=== PATIENT | female | born 1960 | race Caucasian/White ===

== ENCOUNTER 2016-06-20 13:28 | Inpatient (IN) | payer OTHER ==
[~2016-06-20] VITALS: Ht 170.2 cm; Wt 57.3 kg
--- NOTE | 2016-06-20 13:31 | NUR ---
RECEIVED 55 YO FEMALE BIBA FROM HOME WITH REPORT THAT PT WOKE UP ABOUT 9:30 TO 10 AM TODAY WITH RIGHT ARM AND LEG WEAKNESS, RIGHT FACIAL DROOP, SOME EXPRESSIVE APHASIA. PT COMES IN TO ED A+O X 2. RIGHT SIDED WEAKNESS NOTED. DR CLOUD IN TO EVALUATE PT UPON ARRIVAL TO ED.
--- NOTE | 2016-06-20 13:32 | ED NEURO DEFICIT/STROKE ---
History of Present Illness General Chief Complaint: Neuro Symptoms/ Deficit Stated Complaint: STROKE ALERT Source: patient, EMS Exam Limitations: unable to give history, clinical condition Vital Signs & Intake/Output Vital Signs & Intake/Output Vital Signs Date Time Temp Pulse Resp B/P Pulse O2 O2 Flow FiO2 Ox Delivery Rate 06/22 0849 94 Nasal 3.0L Cannula 06/22 0800 97.6 77 18 110/60 93 Nasal 3.0L Cannula 06/22 0800 93 Nasal 3.0L Cannula 06/22 0400 93 Nasal 3.0L Cannula 06/22 0000 97.3 92 20 124/60 92 Nasal 3.0L Cannula 06/22 0000 92 Nasal 3.0L Cannula 06/21 2138 93 Nasal 3.0L Cannula 06/21 2000 93 Nasal 5.0L Cannula 06/21 1600 95 Nasal 5.0L Cannula 06/21 1600 100.0 100 20 140/78 95 Nasal 5.0L Cannula 06/21 1200 91 Nasal 5.0L Cannula ED Intake and Output 06/22 0000 06/21 1200 Intake Total 1540 408 Output Total 605 1050 Balance 935 -642 Intake, IV 1450 408 Intake, Oral 0 Intake, Other 60 Intake, Tube 30 Irrigant Number 0 Bowel Movements Output, 200 Emesis Output, Urine 605 850 Allergies Coded Allergies: azithromycin (TREMORS 06/20/16) erythromycin base (TREMORS 06/20/16) Reconcile Medications Buprenorphine HCl/Naloxone HCl (Suboxone 8 MG-2 MG Sl Film) 8 MG-2 MG FILM 1 STR SL BID MENTAL HEALTH (Reported) Cholecalciferol (Vitamin D3) (Vitamin D) 2,000 UNIT CAPSULE 1 CAP PO DAILY SUPPLEMENT (Reported) Cyclosporine (Restasis) 0.05 % DROPERETTE 1 GTT OPH BID BOTH EYES (Reported) Fluoxetine HCl 20 MG CAPSULE 1 CAP PO DAILY MENTAL HEALTH (Reported) Olanzapine 5 MG TABLET 1 TAB PO QPM MENTAL HEALTH (Reported) Triage Nurses Notes Reviewed? yes Onset: Abrupt Duration: WOKE UP AT 9:30 AM WITH SAME SYMPTOMS, LAST NORMAL LAST NIGHT Timing: single episode today Severity: severe New Weakness: RUE, right facial Altered Sensations: RUE Baseline: alert, oriented x 3, walks w/o assistance Associated Symptoms: slurred speech, trouble walking HPI: 55 year old female with history of HTN and anxiety who presents via EMS from home for chief complaint of right facial droop, slurred speech and right-sided weakness that she noticed while waking up this morning. Last was normal yesterday night. According to the fiance who arrived in the ER she was really lethargic last few days and was sleeping a lot. This morning he noticed that she was having difficulty walking and slurred speech. Patient refused to come to the hospital and thought she would take a nap after lunch and see if she was better. Then the daughter called EMS and brought her here. Denies any headache. Speech is moderately unintelligible. Past History Travel History Traveled to [place] past 21 day No Medical History Any Pertinent Medical History? see below for history Psychiatric: anxiety Surgical History Surgical History: unobtainable Psychosocial History Daily Tobacco Use Amount/Type: => 5 Cigarettes daily Family History Hx Contributory? No Review of Systems Review of Systems Constitutional: Reports: see HPI (PER FAMILY). EENTM: Reports: no symptoms. Respiratory: Denies: cough. Cardiovascular: Reports: no symptoms. GI: Denies: diarrhea, vomiting. Genitourinary: Reports: no symptoms. Musculoskeletal: Reports: no symptoms. Skin: Reports: no symptoms. Neurological/Psychological: Reports: see HPI (FACIAL DROOP), ataxia, confusion, weakness. Hematologic/Endocrine: Denies: bruising, bleeding. Immunologic/Allergic: Reports: no symptoms. All Other Systems: Reviewed and Negative Physical Exam Physical Exam General Appearance: awake, lethargic, mild distress, thin Head: atraumatic, normal appearance Eyes: Bilateral: PERRL, EOMI, other (SMALL PUPILS). Ears, Nose, Throat: DRY MUCUS MEMBRANES Neck: normal inspection, supple, full range of motion Respiratory: normal breath sounds, chest non-tender, no respiratory distress Cardiovascular: regular rate/rhythm Peripheral Pulses: 2+ radial (R), 2+ radial (L) Gastrointestinal: normal bowel sounds, soft, non-tender Extremities: RIGHT ARM 1/5 STRENGTH RIGHT LEG 2/5 STRENGTH Psychiatric: lethargic Cranial Nerves: abnormal speech, facial asymmetry, facial droop Coordination/Gait: ABN nose to finger (R) Motor/Sensory: motor deficit, weak motor strength RUE, weak motor strength RLE Skin: intact, normal color, warm/dry Core Measures CVA/TIA Diagnosis: Yes NIH Stroke Scale: Total 10 Severe Sepsis Present: No Septic Shock Present: No Bedside Dysphagia Screen Bedside Swallow Eval Done: Yes Result of Evaluation: Fail Progress Differential Diagnosis: intracranial mass/tumor, seizure disorder, stroke Plan of Care: Orders Procedure Date/time Status Albright, Insertion/Removal/Asses 06/22 0718 Active XRY-PORTABLE CHEST XRAY 06/22 0600 Active ICU LAB BUNDLE 06/22 0500 Complete CBC WITHOUT DIFFERENTIAL 06/22 0500 Complete SWALLOW EVALUATION 06/22 UNK Active Therapeutic Activities 06/22 UNK Complete Therapeutic Exercise 06/22 UNK Complete Neuromuscular Re-ed 06/22 UNK Complete Change service to 06/21 1419 Active LOWER RESPIRATORY CULTURE 06/21 1222 Active THYROID STIMULATING HORMONE 06/21 0420 Complete GLYCOSYLATED HGB 06/21 0420 Active VITAMIN B12 06/21 0420 Complete Evaluate Swallowing 06/21 UNK Complete AEROSOL CHG 06/21 UNK Complete OXYGEN 06/21 UNK Complete OXYGEN DAILY CHARGE 06/21 UNK Complete THERAPIST ORDERS 06/21 UNK Complete OXYGEN SETUP (GEN) 06/21 UNK Complete Therapeutic Activities 06/21 UNK Complete PT Eval 06/21 UNK Complete Neuromuscular Re-ed 06/21 UNK Complete Lab Add-on Test 06/21 UNK Active FingerStick- Glucose 06/21 UNK Active OXYGEN SETUP CHG 06/20 UNK Complete AEROSOL CHG 06/20 UNK Complete OXYGEN 06/20 UNK Complete OXYGEN TRANSPORT 06/20 UNK Complete Current Medications Sig/Eduardo Start time Last Medication Dose Stop Time Status Admin Acetaminophen 650 MG Q6 PRN 06/20 1730 AC (Tylenol) Laboratory Tests 06/22/ 0400: Anion Gap 8, Estimated GFR > 60, Glucose 92, Calcium 8.6, Phosphorus 5.0 H, Magnesium 1.7, Total Bilirubin 0.9, AST 32, ALT 40, Albumin 3.3 L, CBC w Diff NO MAN DIFF REQ, RBC 3.92 L, MCV 93.5, MCH 32.4 H, RDW 13.4, MPV 9.0, Gran % 62.8, Lymphocytes % 29.4, Monocytes % 7.2, Eosinophils % 0.2, Basophils % 0.4, Absolute Granulocytes 8.1 H, Absolute Lymphocytes 3.8 H, Absolute Monocytes 0.9 H, Absolute Eosinophils 0, Absolute Basophils 0.1, PUBS MCHC 34.7 Microbiology 06/21 1222 LOWER RESP: Respiratory Culture - COLB 06/21 1222 LOWER RESP: Gram Stain - COLB Diagnostic Imaging: Viewed by Me: CT Scan. Discussed w/RAD: CT Scan. Radiology Impression: EXAM TYPE: CAT - CT HEAD WO IV CONTRAST EXAMINATION: CT HEAD WITHOUT CONTRAST CLINICAL INFORMATION: Right-sided weakness COMPARISON: None. TECHNIQUE: Contiguous axial imaging was performed from the skull base to vertex without intravenous administration of contrast. DLP: 600 mGy-cm. FINDINGS : There is no evidence of acute intracranial hemorrhage or territorial infarction. No abnormal mass effect or midline shift is seen. Schultz to white matter differentiation is well preserved. No extra-axial fluid collections are identified. The ventricles are normal in size. There is no abnormal attenuation within the brain parenchyma. The osseous structures and soft tissues are normal. The mastoid air cells and visualized portions of the paranasal sinuses are well aerated. IMPRESSION: No acute intracranial process seen. Initial ED EKG: NSR Rhythm Strip: normal sinus rhythm Departure Departure Time of Disposition: 1523 Disposition: STILL A PATIENT Condition: Stable Clinical Impression Primary Impression: CVA (cerebral vascular accident) Referred to [facility] as new patient No Departure Forms: Customer Survey General Discharge Information Admission Note Spoke With: TONA BUTT MD Documentation of Exam: Documentation of any treatments & extenuating circumstances including Concerns Regarding Discharge (functional status, medication knowledge or non-compliance, living conditions, etc.) that warrant an admission rather than observation: [ TELE MONITOR, MRI HEAD, NEURO CONSULTATION, ASPIRIN, CAROTID ULTRASOUND]
--- NOTE | 2016-06-20 13:33 | NUR ---
PT TO [facility] WITH MEHRAN GOMEZ AND [employer] TECH VIA STRETCHER, ON MONITOR
--- NOTE | 2016-06-20 13:39 | NUR ---
PT BACK FROM [facility].
--- NOTE | 2016-06-20 13:55 | NUR ---
STRAIGHT CATHED PT FOR URINE SAMPLE. APPROX 300ML OBTAINED
--- NOTE | 2016-06-20 13:57 | CT SCAN REPORT ---
EXAMINATION: CT HEAD WITHOUT CONTRAST CLINICAL INFORMATION: Right-sided weakness COMPARISON: None. TECHNIQUE: Contiguous axial imaging was performed from the skull base to vertex without intravenous administration of contrast. DLP: 600 mGy-cm. FINDINGS: There is no evidence of acute intracranial hemorrhage or territorial infarction. No abnormal mass effect or midline shift is seen. Schultz to white matter differentiation is well preserved. No extra-axial fluid collections are identified. The ventricles are normal in size. There is no abnormal attenuation within the brain parenchyma. The osseous structures and soft tissues are normal. The mastoid air cells and visualized portions of the paranasal sinuses are well aerated. IMPRESSION: No acute intracranial process seen.
[2016-06-20 14:06] LABS: ABSOLUTE BASOPHIL COUNT 0 /CUMM (0.0-0.2); ABSOLUTE EOSINOPHIL COUNT 0.1 /CUMM (0.0-0.7); ABSOLUTE GRANULOCYTE CT 2.8 /CUMM (1.4-6.5); ABSOLUTE LYMPH COUNT 2.4 /CUMM (1.2-3.4); ABSOLUTE MONOCYTE COUNT 0.4 /CUMM (0.10-0.60); BASOPHIL % 0.6 % (0.0-2.0); EOSINOPHIL % 1.8 % (0-5); GRANULOCYTE % 48.7 % (42.2-75.2); HEMATOCRIT 41.4 % (37-47); MEAN CORPUSCULAR HGB 31.9 PG (27.0-31.0); MEAN CORPUSCULAR VOLUME 93.8 FL (81.0-99.0); MEAN PLATELET VOLUME 9.2 FL (7.4-10.4); PLATELET COUNT 183 /CUMM (130-400); RBC DISTRIBUTION WIDTH 13.4 % (11.5-14.5); RED BLOOD CELL CT 4.41 /CUMM (4.20-5.40); WHITE BLOOD CELL COUNT 5.7 /CUMM (4.8-10.8)
--- NOTE | 2016-06-20 14:08 | NUR ---
URINE TRIO SENT TO LAB
--- NOTE | 2016-06-20 14:09 | NUR ---
PER SHIVA IN LAB, BLUE, SST,PINK NEED TO BE REDRAWN,
--- NOTE | 2016-06-20 14:25 | NUR ---
PT GIVEN SC DIRECTED
--- NOTE | 2016-06-20 14:25 | NUR ---
PT FAILED JUDD CORDERO
--- NOTE | 2016-06-20 14:35 | NUR ---
DR. CLOUD IN ROOM TALKING WITH FAMILY AND PT
[2016-06-20 14:51] LABS: PT 12.8 SEC (9.4-12.5); PTT 33 SEC (25-37)
[2016-06-20] MEDS ORDERED: FLUOXETINE HCL20 M2 PO (15:49)
--- NOTE | 2016-06-20 15:49 | History & Physical ---
JOVI LOVE 06/20/16 1545: General Information and HPI MD Statement: I have seen and personally examined JIMMIE SEGURA and documented this H&P. The patient is a 55 year old F who presented with a patient stated chief complaint of [right sided weakness]. Source of Information: patient, family Exam Limitations: unable to give history History of Present Illness: 55-year-old woman with past medical history of substance abuse(IV injection), clean for 2 years on Suboxone, anxiety/depression/bipolar on olanzapine and fluoxetine, daily smoker of 2 packs a day was BIBA to the hospital for chief complaint of right-sided weakness. Patient is unable to talk and a history was obtained from patient's fianc and daughter. In the morning around 9:30 AM patient reporting feeling funny and gradually she had weakness of her right arm and subsequently with a soft early right leg with unsteady gaits. Patient developed slurred speech gradually an ambulance was called around 1 PM. Patient took her Suboxone in the morning and also ate her cereal around 12 PM. According the family patient denied any chest pain, dizziness, shortness of breath, blurry vision, tinnitus, nausea, vomiting, headache, chills, fevers. Initially in the ED patient was able to express individual ports were Jamel and TV, however she failed a swallow evaluation and when I saw the patient she was unable to talk. Vital signs on admission blood pressure 155/81, respiratory rate 20, O2 saturation 92, pulse rate 75, temperature 96.[address] did not show any signs of acute pathology (which is unreliable) Since patient was drowsy ABG was done which showed PCO2 of 50, PO2 of 63, normal pH, HCO3 29, O2 saturation 89% on room air Allergies/Medications Allergies: Coded Allergies: azithromycin (TREMORS 06/20/16) erythromycin base (TREMORS 06/20/16) Home Med list Buprenorphine HCl/Naloxone HCl (Suboxone 8 MG-2 MG Sl Film) 8 MG-2 MG FILM 1 STR SL BID MENTAL HEALTH (Reported) Cholecalciferol (Vitamin D3) (Vitamin D) 2,000 UNIT CAPSULE 1 CAP PO DAILY SUPPLEMENT (Reported) Cyclosporine (Restasis) 0.05 % DROPERETTE 1 GTT OPH BID BOTH EYES (Reported) Fluoxetine HCl 20 MG CAPSULE 1 CAP PO DAILY MENTAL HEALTH (Reported) Olanzapine 5 MG TABLET 1 TAB PO QPM MENTAL HEALTH (Reported) Past History Travel History Traveled to [place] past 21 day No Medical History Psychiatric: anxiety, bipolar disease, depression, opioid dependence Surgical History Surgical History: non-contributory Past Family/Social History Family History Relations & Conditions if any Relation not specified for: *No pertinent family history Psychosocial History Smoking Status: Current Everyday Smoker ETOH Use: denies use Illicit Drug Use: clean for 2 years Review of Systems Review of Systems Constitutional: Reports: see HPI. Exam & Diagnostic Data Last 24 Hrs of Vital Signs/I&O Vital Signs Date Time Temp Pulse Resp B/P Pulse O2 O2 Flow FiO2 Ox Delivery Rate 06/20 1528 96.7 73 18 135/78 94 Room Air 06/20 1345 92 Room Air 06/20 1330 93.4 75 20 155/81 92 Room Air Intake & Output 06/20 1600 06/20 0800 06/20 0000 Intake Total 0 Output Total Balance 0 Intake, IV 0 Patient 139 lb Weight Physical Exam General Appearance Alert, Cooperative, No Acute Distress, unbale to talk Cardiovascular Regular Rate, No Murmurs Lungs Clear to Auscultation, Normal Air Movement Abdomen Normal Bowel Sounds, Soft, No Tenderness, No Hepatospenomegaly, No Masses Neurological positive bab[place]i sig on right side, strenght 0/5 of RLE and RUE, 4/ 5 LLE,LUE, cranial exam limited (normal 12,mild facial droop, PERRLA Assessment/Plan Assessment: 55-year-old woman with past medical history of substance abuse(IV injection), clean for 2 years on Suboxone, anxiety/depression/bipolar on olanzapine and fluoxetine, daily smoker of 2 packs a day was BIBA to the hospital for chief complaint of right-sided weakness. Patient is unable to talk and a history was obtained from patient's fianc and daughter. Initially in the ED patient was able to express individual ports were Jamel and TV, however she failed a swallow evaluation and when I saw the patient she was unable to talk. Vital signs on admission blood pressure 155/81, respiratory rate 20, O2 saturation 92, pulse rate 75, temperature 96.[address] did not show any signs of acute pathology (which is unreliable) Since patient was drowsy ABG was done which showed PCO2 of 50, PO2 of 63, normal pH, HCO3 29, O2 saturation 89% on room air EKG showed normal sinus rhythm, 75, QTC 443, inverted T's in V1 and V2 and possibly inverted P in V1 Assessment and plan #CVA (possibly evolving) * Admit to ICU for hourly neuro checks * NG tube for giving the medications * Aspirin 300 MG was already given we will continue with 81 mg daily * Atorvastatin 80 mg daily starting today * IV hydration with 40 meq KCL will D5/half NS 75 cc per hour * Neurology consult was placed * Echocardiogram and carotid doppler ultrasound * swallow evaluation, PT, OT, speech therapy * Watch for any signs of drowsiness/ acute change in mental status * IV PPI #On Suboxone therapy * Continue home dosage tomorrow #History of anxiety, bipolar * Hold olanzapine and fluoxetine for now, patient has been on fluoxetine for 2 weeks and she wants to stop it #Daily smoker/abnormal ABG * O2 therapy keep O2 saturation over 92% * TRC nebs * Nicotine patch 14 mg tomorrow #Full code, NPO, Tylenol for pain, DVT prophylaxis mechanical and the Lovenox As Ranked By This Provider Problem List: 1. CVA (cerebral vascular accident) Core Measures/Miscellaneous Acute Coronary Syndrome ACS Diagnosis: No Cerebrovascular Accident CVA/TIA Diagnosis: Yes NIH Stroke Scale: Total 13 Date Last Known Well: 06/20/16 Time Last Known Well: 929 Neurological S/S of CVA: Doesn't Walk, Right Hemiparesis, Weakness of Limb Symptom Start Date: 06/20/16 Symptom Start Time: 929 Reason tPA not ordered Medical Contraindication Bedside Swallow Eval Done: Yes Result of Evaluation: Fail Antithrombotic: Yes AFIB: No Aflutter: No Anticoagulant: No No Anticoag d/t: Medical Contraindication LDL Assessed Within 24 Hours: Yes Currently on Statin: No Rehab Needs Assessed: Medical Eval for Rehab PT Consult Ordered: Yes Congestive Heart Failure CHF Diagnosis: No Venous Thromboembolism VTE Risk Factors: Age > 40 VTE Prophylaxis Ordered Inpt: Mech/Pharm Contraindicate No Mech VTE prophylaxis d/t: No contraindications VTE Diagnosis: No VTE Type: NONE VTE Confirmed by (Test): NONE Severe Sepsis Severe Sepsis Present: No Septic Shock Septic Shock Present: No Miscellaneous Documentation Attending Case Discussed With: Primary Care Physician: PATIENT HAS NO PRIMARY CARE DR Patient sees these Specialists dr. frances [place] psyhiactry Level of Patient Care: Telemetry TONA BUTT MD 06/20/16 0005: Core Measures/Miscellaneous Venous Thromboembolism No VTE Pharm Prophylaxis d/t: VTE low risk Attending MD Review Statement Attending Statement Attending MD Statement: examined this patient, discuss w/resident/PA/TABULAR TYPIST, agreed w/resident/PA/TABULAR TYPIST, discussed with family, reviewed EMR data (avail), discussed with nursing, reviewed images, amended to note Attending Assessment/Plan: The patient is a 55 yo female with h/o substance abuse (on Suboxone therapy), anxiety, bipolar, depression who presented on the day of admission in the ED with complaints of right facial droop and RUE/RLE weakness. Symptoms began at approximately 8:30 am and progressed slightly prior to the family being able to convince her to come to the hospital. In the ED she was initially moving and speaking. She had eaten lunch prior to coming. CT head was done and was w/o pathology. During her ED stay her symptoms progressed significantly and she was unable to speak or move right side at the time of resident exam. Family stated she has no h/o neuro symptoms and had been feeling well. She did not complain of any chest pain, palpitations, abd pain, lightheadedness, or headache. She received ASA 300 mg AR in the ED. At the time of my exam she was lethargic and unable to speak to me. 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 Onset of symptoms 8:30 am. No h/o known vascular disease. EKG neg, no heart murm or bruit. No PCP (recently moved to [place] from [facility]). Plan: ASA 300 mg AR given in ED. Will place NG tube and give high dose statin ( Atorvastatin 80 mg). Admit to ICU for close q1-2 hr neuro checks. Telemetry monitoring. Carotid US/ECHO- will need MRI brain. Neuro consult called in ED. PT /OT/Speech therapy as able. #H/O Opioid Abuse- on chronic Suboxone Therapy. No illicit drugs x 2 years per family. Plan: Will continue Suboxone via NG at present. Would get urine tox screen. #?COPD- few rhonchi on exam. Patient is a smoker per family and they request Nicotine Patch. Plan: Will follow Oxygen sats closely. Patient at risk of aspiration. #Depression/Bipolar/Anxiety- on meds as per patient's family. Plan: Will hold psych meds at present and reassess.
[2016-06-20] MEDS ORDERED: OLANZAPINE5 M2 PO (15:50)
[2016-06-20] MEDS ORDERED: SUBOXONE 8 MG-1 EACH SL (15:50)
[2016-06-20] MEDS ORDERED: VITAMIN D2000 UNIT PO (15:51)
[2016-06-20] MEDS ORDERED: RESTASIS1 EACH OPH (15:51)
--- NOTE | 2016-06-20 15:59 | NUR ---
PT ADMIT TO 185 BED 2
--- NOTE | 2016-06-20 16:03 | NUR ---
HOUSE STAFF IN ROOM FOR EVAL.
--- NOTE | 2016-06-20 17:04 | NUR ---
DR. HANDLEY IN ROOM FOR EVAL.
--- NOTE | 2016-06-20 18:00 | NUR ---
NG TUBE PLACED LEFT NOSTRIL SOME BLEEDING DURING PROCEDURE RADIOLOGY AT BEDSIDE FOR CONFIRMATION X-RAY
--- NOTE | 2016-06-20 18:54 | RADIOLOGY REPORT ---
EXAMINATION: XR PORTABLE CHEST CLINICAL INFORMATION: NG tube placement. COMPARISON: None. TECHNIQUE: Portable view of the chest was obtained. FINDINGS: Nasogastric tube is in stomach. Both the end and side hole has passed below diaphragm. No significant abnormality is noted involving the heart, lungs, mediastinum, bony thorax or soft tissues. IMPRESSION: Nasogastric tube in stomach.
--- NOTE | 2016-06-20 20:06 | NUR ---
PT ADMITTED TO ICU BED 104
--- NOTE | 2016-06-20 20:15 | NUR ---
REPORT GIVEN TO MEHRAN HIGH
--- NOTE | 2016-06-20 20:16 | NUR ---
[facility] CALLED FOR TRANSPORT
--- NOTE | 2016-06-20 21:00 | NUR ---
ADMISSION NOTE- Patient arrived to floor at 2044 and is transferred to ICU bed without incident. Patient is aphasic and unable to move her right side, but can follow most commands and answer yes/no questions with head motions. She is NSR on monitor with HR in the 70's-80's and SBP's 120-130's, no compplaints of chest pain. Patient arrives on IV fluids and has 2 patent IV's. Skin appears to be intact, and there is no edema noted. The patient is on RA, with a loud rattling cough. Patient unable to fully bring up phlegm, so it is suctioned via yankauer. There is a NGT to the left nare which is attached to suction. Family is at the bedside, no acute distress at this time. Will cont to monitor.
--- NOTE | 2016-06-20 21:15 | NUR ---
PT ARRIVED FROM ER, COUGHING CONTINOUSLY. RA SATS 88%, PLACED ON 3L NC. PT UNABLE TO SWALLOW SALIVA, DUE TO STROKE. PT HAS NGT IN PLACE, TAPED AT 40CM. CHECKED AND HEARD BREATH SOUNDS THROUGH NGT. RN ALERTED TO PROBLEM. DR BURDEN CALLED TO BEDSIDE, STAT CXR DONE. SHORTLY AFTER PT SNEEZED OUT NGT. LESS DISTRESS NOTED AND BS IMPROVED.
--- NOTE | 2016-06-20 22:00 | NUR ---
AT around 2114- patient is found to be desatting with an increase in rhonchi in lung millard. Upon assessment, NGT is found to be draining bloody mucous. A repeat chest x-ray is ordered to re-confirm NGT placement. It is found to be in the incorrect position. Prior to being able to replace the NGT, the patient was observed removing the tube with her left hand. A second NGT was placed in the Left nare with some difficulty. Small amounts of blood suctioned out when attached to suction. NGT placement confirmed by CXR. Currently in correct position, and is taped at 60cm. At 2146, an order is obtained for a soft Left wrist restraint to prevent further pulling of lines. Dr. Emmy Cuadra in to assess patient. Will cont to monitor.
--- NOTE | 2016-06-20 22:08 | RADIOLOGY REPORT ---
EXAMINATION: XR PORTABLE CHEST CLINICAL INFORMATION: NG tube placement. COMPARISON: Chest x-ray 06/20/2016. TECHNIQUE: Portable view of the chest was obtained. FINDINGS: No nasogastric tube evident from lower neck through chest and abdomen. Lungs are clear. Cardiac mediastinal contour normal. No pulmonary vascular congestion or pleural effusion. IMPRESSION: No nasogastric tube in the chest. 2 please reposition. This critical result was discussed with Dr. Cuadra on 06/20/2016, 10:00 PM and it was ascertained that the content and urgency of the report was understood at the time of direct communication.
--- NOTE | 2016-06-20 23:24 | RADIOLOGY REPORT ---
EXAMINATION: XR PORTABLE CHEST CLINICAL INFORMATION: NG tube placement. COMPARISON: To prior chest x-rays 06/20/2016. TECHNIQUE: Portable view of the chest was obtained. 11:04 PM FINDINGS: Nasogastric tube is been repositioned and now is within the stomach. Lungs are clear. Cardiac and mediastinal contours are normal. Heart size normal. No pleural effusion or pneumothorax. IMPRESSION: Nasogastric tube is now within stomach.
[2016-06-21] VITALS: BP 122/64
--- NOTE | 2016-06-21 00:05 | Admission Certification ---
Admission Certification Certification Statement - As attending physician, I certify that at the time of - admission, based on clinical presentation, severity of - symptoms, need for further diagnostic testing and - therapeutic interventions, and risk of adverse outcomes - without in-hospital treatment, in my clinical assessment, - this patient requires an acute hospital stay for a minimum - of two nights or longer. I have also considered psychsocial - factors such as support system, advanced age, financial - issues, cognitive issues, and failed out-patient treatments, - past re-admission history, safety of patient, and lack of - compliance as applicable. Specific rationale supporting this admission is: The patient presents with acute left sided CVA with right hemiparesis and aphasia/inability to swllow/lethargy. Needs close neuro monitoring and cardiac monitoring. ICU as symptoms have progressed.
--- NOTE | 2016-06-21 02:30 | NUR ---
Patient has not been able to void on her own. Patient is bladder scanned for 600-700ml. Albright catheter is ordered and placed. 625ml of clear yellow urine out with placement. UC sent. Will cont to monitor.
[2016-06-21 04:59] LABS: ABSOLUTE BASOPHIL COUNT 0 /CUMM (0.0-0.2); ABSOLUTE EOSINOPHIL COUNT 0.1 /CUMM (0.0-0.7); ABSOLUTE LYMPH COUNT 2.8 /CUMM (1.2-3.4); ABSOLUTE MONOCYTE COUNT 0.6 /CUMM (0.10-0.60); BASOPHIL % 0.2 % (0.0-2.0); HEMATOCRIT 39.4 % (37-47); MEAN CORPUSCULAR HGB 32.2 PG (27.0-31.0); MEAN CORPUSCULAR HGB CONC 34.3 G/DL (33.0-37.0); MEAN CORPUSCULAR VOLUME 93.8 FL (81.0-99.0); MEAN PLATELET VOLUME 8.6 FL (7.4-10.4); PLATELET COUNT 187 /CUMM (130-400); RBC DISTRIBUTION WIDTH 13.5 % (11.5-14.5); WHITE BLOOD CELL COUNT 7.5 /CUMM (4.8-10.8)
--- NOTE | 2016-06-21 07:14 | Cons- [facility] ---
General Information and HPI Consulting Request Date of Consult: 06/21/16 Requested By: Reason for Consult: [facility] management Source of Information: patient, family, EMS Exam Limitations: no limitations Allergies/Medications Allergies: Coded Allergies: azithromycin (TREMORS 06/20/16) erythromycin base (TREMORS 06/20/16) Home Med List: Buprenorphine HCl/Naloxone HCl (Suboxone 8 MG-2 MG Sl Film) 8 MG-2 MG FILM 1 STR SL BID MENTAL HEALTH (Reported) Cholecalciferol (Vitamin D3) (Vitamin D) 2,000 UNIT CAPSULE 1 CAP PO DAILY SUPPLEMENT (Reported) Cyclosporine (Restasis) 0.05 % DROPERETTE 1 GTT OPH BID BOTH EYES (Reported) Fluoxetine HCl 20 MG CAPSULE 1 CAP PO DAILY MENTAL HEALTH (Reported) Olanzapine 5 MG TABLET 1 TAB PO QPM MENTAL HEALTH (Reported) Current Medications: Current Medications Sig/Eduardo Start time Last Medication Dose Route Stop Time Status Admin Acetaminophen 650 MG Q6 PRN 06/20 1730 AC PO Albuterol Sulfate 3 ML Q4P PRN 06/20 2200 AC 06/20 INH 2132 Aspirin 81 MG DAILY 06/21 1000 AC PO Aspirin 300 MG ONCE ONE 06/20 1430 DC 06/20 DE 06/20 1431 1422 Atorvastatin Calcium 80 MG 1700 06/20 1700 AC 06/20 PO 2354 Buprenorphine/ 1 TAB BID 06/21 1000 AC Naloxone SL Cyclosporine 1 GTT Q12 06/20 2200 AC 06/20 OPH 2200 Enoxaparin Sodium 40 MG DAILY 06/21 1000 AC SC Nicotine 14 MG DAILY 06/21 1000 AC TOP Nicotine 21 MG DAILY 06/20 1630 CAN TOP Nicotine 0 .STK-MED ONE 06/20 1629 DC TOP Non-Formulary 0 SEE ADMIN CRITERIA 06/20 1630 CAN Medication ANY Pantoprazole Sodium 0 .STK-MED ONE 06/20 1801 DC IV Pantoprazole Sodium 40 MG DAILY 06/20 1730 AC 06/20 IV 1810 Potassium Chloride 40 MEQ Q20H 06/20 1700 AC 06/20 Dextrose/Sodium 1,000 ML IV 1715 Chloride Past History Travel History Traveled to [place] past 21 day No Medical History Blood Transfusion Hx: No Neurological: NONE EENT: NONE Cardiovascular: NONE Respiratory: NONE Gastrointestinal: NONE Hepatic: NONE Renal: NONE Musculoskeletal: NONE Psychiatric: anxiety, bipolar disease, depression, opioid dependence Endocrine: NONE Blood Disorders: NONE Cancer(s): 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 Home Services at Home: None Smoking Status: Current Everyday Smoker ETOH Use: denies use Illicit Drug Use: clean for 2 years Assessment/Plan Consult Acknowledgment - Thank you for your consult request.
[2016-06-21 08:00] VITALS: BP 123/70
--- NOTE | 2016-06-21 11:26 | PN- Housestaff ---
MARIA E SUN,JAQUELINE 06/21/16 1126: Subjective Follow-up For: CVA (right sided) Complaints: pt unable to provide hx Subjective: I saw and examined patient today morning. She is alert, oriented to place, person but not to time. She is unable to talk. Still coughing with significant amount of gurgling and phlegm production. NG tube in place with restraints so that she wont pull it out. Currently saturating in 90's at 2L of oxygen. Review of Systems Constitutional: Reports: see HPI. Comments: ROS cannot be appreciated as per the patient condition. Objective Last 24 Hrs of Vital Signs/I&O Vital Signs Date Time Temp Pulse Resp B/P Pulse O2 O2 Flow FiO2 Ox Delivery Rate 06/21 1128 92 Nasal 3.0L Cannula 06/21 0400 91 Nasal 1.5L Cannula 06/21 0000 98.4 78 16 122/64 90 Nasal 1.5L Cannula 06/207 92 Nasal 1.5L Cannula 06/208 Nasal 1.0L Cannula 06/209 91 Nasal 1.0L Cannula 06/20 1955 97.7 77 18 136/79 92 Room Air 06/20 1847 96.6 74 18 125/78 91 Room Air 06/20 1811 97.4 81 18 139/78 91 Room Air 06/20 1528 96.7 73 18 135/78 94 Room Air 06/20 1345 92 Room Air 06/20 1330 93.4 75 20 155/81 92 Room Air Intake & Output 06/21 1600 06/21 0800 06/21 0000 Intake Total 408 100 Output Total 1050 0 Balance -642 100 Intake, IV 408 100 Output, 200 Emesis Output, 0 Gastric Drainage Output, Urine 850 Patient 57.209 kg Weight Physical Exam General Appearance: Alert, Cooperative, Mild Distress, Oriented X 2. Skin: No Rashes, No Breakdown HEENT: Atraumatic, PERRLA Neck: Supple, No JVD Cardiovascular: Normal S1, Normal S2, No Murmurs Lungs: diffuse rhonchi are heard Abdomen: Normal Bowel Sounds, Soft, No Tenderness Neurological: Global aphasia, Increased tone right side. Facial assymmetry, drolling, strength 0/5 right side, 5/5 on left side. Extremities: No Clubbing, No Cyanosis, No Edema, Normal Pulses Vascular: Normal Pulses, Pulses Symmetrical Current Medications: Current Medications Sig/Eduardo Start time Last Medication Dose Route Stop Time Status Admin Acetaminophen 650 MG Q6 PRN 06/20 1730 AC PO Albuterol Sulfate 3 ML Q4P PRN 06/20 2200 AC 06/21 INH 1127 Aspirin 81 MG DAILY 06/21 1000 AC 06/21 PO 1109 Aspirin 300 MG ONCE ONE 06/20 1430 DC 06/20 VT 06/20 1431 1422 Atorvastatin Calcium 80 MG 1700 06/20 1700 AC 06/20 PO 2354 Buprenorphine/ 1 TAB BID 06/21 1000 AC 06/21 Naloxone SL 1108 Cyclosporine 1 GTT Q12 06/20 2200 AC 06/21 OPH 1109 Dextrose/Sodium 1,000 ML Q20H 06/21 1230 AC 06/21 Chloride IV 1228 Enoxaparin Sodium 40 MG DAILY 06/21 1000 AC 06/21 SC 1109 Magnesium Sulfate 1 GM Q2H 06/21 1000 AC 06/21 Dextrose/Water 100 ML IV 06/21 1359 1210 Magnesium Sulfate 2 GM ONCE ONE 06/21 0900 CAN Dextrose/Water 250 ML IV 06/21 1259 Magnesium Sulfate 1 GM ONCE ONE 06/21 0900 CAN Dextrose/Water 100 ML IV 06/21 1259 Nicotine 14 MG DAILY 06/21 1000 06/21 TOP 1109 Nicotine 21 MG DAILY 06/20 1630 CAN TOP Nicotine 0 .STK-MED ONE 06/20 1629 DC TOP Non-Formulary 0 SEE ADMIN CRITERIA 06/20 1630 CAN Medication ANY Pantoprazole Sodium 0 .STK-MED ONE 06/20 1801 DC IV Pantoprazole Sodium 40 MG DAILY 06/20 1730 06/21 IV 1109 Potassium Chloride 40 MEQ Q20H 06/20 1700 DC 06/21 Dextrose/Sodium 1,000 ML IV 1210 Chloride Last 24 Hrs of Lab/Edgar Results Last 24 Hrs of Labs/Mics: Laboratory Tests 06/21/ 0420: Anion Gap 9, Estimated GFR > 60, BUN/Creatinine Ratio 15.7, Phosphorus 5.5 H, Magnesium 1.5 L, Triglycerides 159 H, Cholesterol 153, LDL Cholesterol, Calc 94, HDL Cholesterol 28 L, Cholesterol/HDL Ratio 5 H, CBC w Diff NO MAN DIFF REQ, RBC 4.20, MCV 93.8, MCH 32.2 H, RDW 13.5, MPV 8.6, Gran % 54.0, Lymphocytes % 37.0, Monocytes % 7.8, Eosinophils % 1.0, Basophils % 0.2, Absolute Granulocytes 4.0, Absolute Lymphocytes 2.8, Absolute Monocytes 0.6, Absolute Eosinophils 0.1, Absolute Basophils 0, PUBS MCHC 34.3 06/20/16 1645: pH 7.39, pCO2 50 H, pO2 63 L, HCO3 29 H, ABG O2 Sat (Measured) 89.0 L, P-50 (Temp Corrected) N, Carboxyhemoglobin 3.1, O2 Concentration % R/A, Temperature 96.7 L, Phlebotomy Draw Site RIGHT RADIAL 06/20/16 1428: Anion Gap 8, Estimated GFR > 60, BUN/Creatinine Ratio 15.7, Glucose 106 H, Calcium 9.3, Total Bilirubin 0.4, AST 49 H, ALT 51, Alkaline Phosphatase 59, Troponin I < 0.01, Total Protein 7.4, Albumin 3.7, Globulin 3.7, Albumin/ Globulin Ratio 1.0 L, PT 12.8 H, INR 1.22 H, APTT 33 06/20/16 1405: Urine Opiates Screen < 100.00, Methadone Screen < 40, Barbiturate Screen < 60, Ur Phencyclidine Scrn < 6.00, Amphetamines Screen 165, U Benzodiazepines Scrn < 85, Urine Cocaine Screen < 50, Urine Cannabis Screen 6.60, Urinalysis MOD H, Urine Color YEL, Urine Clarity HAZY H, Urine pH 6.0, Ur Specific [place] 1.020, Urine Protein NEG, Urine Ketones NEG, Urine Nitrite NEG, Urine Bilirubin NEG, Urine Urobilinogen 0.2, Ur Leukocyte Esterase NEG, Ur Microscopic SEDIMENT EXAMINED, Urine RBC 5-10 H, Urine WBC RARE, Ur Epithelial Cells MOD H, Urine Mucus RARE, Urine Hemoglobin SMALL H, Urine Glucose NEG 06/20/16 1345: CBC w Diff NO MAN DIFF REQ, RBC 4.41, MCV 93.8, MCH 31.9 H, RDW 13.4, MPV 9.2, Gran % 48.7, Lymphocytes % 42.0, Monocytes % 6.9, Eosinophils % 1.8, Basophils % 0.6, Absolute Granulocytes 2.8, Absolute Lymphocytes 2.4, Absolute Monocytes 0.4 , Absolute Eosinophils 0.1, Absolute Basophils 0, PUBS MCHC 34.0 Microbiology 06/21 1222 LOWER RESP: Respiratory Culture - ORD 06/21 1222 LOWER RESP: Gram Stain - ORD 06/21 0235 URINE ROUT: Urine Culture - RECD 06/20 2100 UPPER RESP: Surveillance Culture - RECD 06/20 2100 GI: Surveillance Culture - RECD Lines/Diet/Fluids Fluids/Infusions: D51/2 NS @ 50ml/hr. Catheters/Tubes: gasca, NG Gasca Still Needed? Yes Lines: peripheral lines Assessment/Plan Assessment: Patient is a 56 YO F with PMH signficant for opiate abuse (on suboxone from 2 yrs), anxiety, depression, bipolar disorder came to ER with weakness on right upper and lower extremity with aphasia. She is able to say her name by the time she came to ER eventually became severely dyarthric. she failed bedside swallow evaluation in the ER. CT scan in the ER dosent reveal any acute pathology. She is admitted to ICU for neurochecks every 1 hr. Plan: Right sided CVA * Complete right sided CVA without any evident pathology in CT head * NG tube in place for medications * Aspirin 300mg VT given in ER and placed on Aspirin 81mg, atorvastatin 80mg via NG tube * Failed bedside swallow evaluation, didnt perform formal swallow evaluation today as per the clinical condition * Currently NPO with D51/2 NS @ 75ml/hr Currently * ECHO and carotid ultrasound are requested - awaiting results * MRI tomorrow * Neurology consulted - appreciate their recommendations Suspected Aspiration pneumonia * Cough with whitish phelgm production * Satuarting in 90's through out night with increased oxygen demand form 2L to 5L NC * CXR shows clear lungs, without any elevated white count * Unasyn 3gm Q6 started * Will monitor for fever/any elevation of white count History of opiate abuse on suboxone * Continue Suboxone BID SL History of anxiety/depression/bipolar disorder * On fluoxetine and Olanzapine at home * Currently holding them DVT prophylaxis * ALPS Code Status * Full Code Problem List: 1. CVA (cerebral vascular accident) Pain Ratin Pain Location: unable to verbalize Pain Goal: Pain 4 or less Pain Plan: Tylenol as needed Tomorrow's Labs & Rationales: ICU bundle CBC PRECIOUS EVANGELISTA MD 06/21/16 1527: Attending MD Review Statement Attending Statement Attending MD Statement: examined this patient, discuss w/resident/PA/RUG FRAME MOUNTER, agreed w/resident/PA/RUG FRAME MOUNTER, reviewed EMR data (avail) Attending Assessment/Plan: 56F PMH opioid abuse on suboxone, anxiety, depression presenting with right sided hemiparesis and aphasia in the setting of left MCA stroke. Able to speak today, failed bedside swallow and NG tube was placed. Became short of breath and hypoxic in afternoon with coarse breath sounds, suspect aspiration. Vitals stable. 1. Left MCA stroke 2. Right hemiparesis 3. Dyphagia requiring NG tube placement 4. Aspiration 5. Acute hypoxemic respiratory failure Plan - May be downgraded to telemetry floor - Continue ASA and high dose statin via NG tube - Start Unasyn for aspiration - Repeat CXR tomorrow (PA/Lateral) - Send sputum culture - Follow neurology recommendations - Obtain MRI head, carotid doppler, echocardiogram - Oxygen as required - Chest physiotherapy - PT/OT evaluation - DVT PPx
--- NOTE | 2016-06-21 12:34 | NUR ---
PHYSICAL THERAPY: Consult orders recieved, chart reviewed. Attempted to see patient earlier this A.M. Per Respiratory therapist and RN, patient is experiencing desaturation on 5L O2 laying semi-fowlers in bed. P.T. to defer treatment at this time until patient stats are more stable and position change is appropraite on O2. P.T. will f/u as appropriate.
--- NOTE | 2016-06-21 14:08 | RADIOLOGY REPORT ---
EXAMINATION: XR PORTABLE CHEST CLINICAL INFORMATION: Gurgling and cough. Phlegm. Increased oxygen demand. COMPARISON: 06/20/2016. TECHNIQUE: Portable view of the chest was obtained. FINDINGS: Cardiac leads overlie the chest. An enteric tube is in place. The lungs are well expanded. There is no focal consolidation, edema, or effusion. No pneumothorax. The cardiomediastinal silhouette is within normal limits. No acute osseous abnormality. IMPRESSION: Clear lungs.
[2016-06-21 16:00] VITALS: BP 140/78
--- NOTE | 2016-06-21 16:47 | Cons- Neurology ---
General Information and HPI Consulting Request Date of Consult: 06/21/16 Requested By: PRECIOUS EVANGELISTA MD Reason for Consult: Stroke Source of Information: family, old records, staff Exam Limitations: unable to give history, language barrier, physical impairment History of Present Illness: This is a 56 year old right handed woman who woke up yesterday morning and at first seemed fine going to fetch her coffee and bringing it into bed. However, soon enough she was noted to have developed right side weakness and then language difficulties. She had slurred speech and was struggling to tell her relatives what she wanted. EMS was called and she was brought to the hospital. In the ER she was supposedly still conversant and could move her right side. Since she arrived 12 hours after initial symptoms (or woke up with the symptoms) TPA was deferred. Today, she is completely aphasic and frustrated. She is also completely hemiplegic on the right side. She seems to ignore the right hemifield and has failed her swallow test. She is a 2-3 pack smoker and was known for hypertension. Allergies/Medications Allergies: Coded Allergies: azithromycin (TREMORS 06/20/16) erythromycin base (TREMORS 06/20/16) Home Med List: Buprenorphine HCl/Naloxone HCl (Suboxone 8 MG-2 MG Sl Film) 8 MG-2 MG FILM 1 STR SL BID MENTAL HEALTH (Reported) Cholecalciferol (Vitamin D3) (Vitamin D) 2,000 UNIT CAPSULE 1 CAP PO DAILY SUPPLEMENT (Reported) Cyclosporine (Restasis) 0.05 % DROPERETTE 1 GTT OPH BID BOTH EYES (Reported) Fluoxetine HCl 20 MG CAPSULE 1 CAP PO DAILY MENTAL HEALTH (Reported) Olanzapine 5 MG TABLET 1 TAB PO QPM MENTAL HEALTH (Reported) Current Medications: Current Medications Sig/Eduardo Start time Last Medication Dose Route Stop Time Status Admin Acetaminophen 650 MG Q6 PRN 06/20 1730 AC PO Albuterol Sulfate 3 ML Q4P PRN 06/20 2200 AC 06/21 INH 1127 Ampicillin Sodium/ 3,000 MG Q6H 06/21 1400 AC Sulbactam Sodium IV Sodium Chloride 100 ML Aspirin 81 MG DAILY 06/21 1000 AC 06/21 PO 1109 Atorvastatin Calcium 80 MG 1700 06/20 1700 AC 06/20 PO 2354 Buprenorphine/ 1 TAB BID 06/21 1000 AC 06/21 Naloxone SL 1108 Cyclosporine 1 GTT Q12 06/20 2200 AC 06/21 OPH 1109 Dextrose/Sodium 1,000 ML Q13H 06/21 1300 AC 06/21 Chloride IV 1344 Dextrose/Sodium 1,000 ML Q20H 06/21 1230 DC 06/21 Chloride IV 1228 Enoxaparin Sodium 40 MG DAILY 06/21 1000 AC 06/21 SC 1109 Magnesium Sulfate 1 GM Q2H 06/21 1000 DC 06/21 Dextrose/Water 100 ML IV 06/21 1359 1210 Magnesium Sulfate 2 GM ONCE ONE 06/21 0900 CAN Dextrose/Water 250 ML IV 06/21 1259 Magnesium Sulfate 1 GM ONCE ONE 06/21 0900 CAN Dextrose/Water 100 ML IV 06/21 1259 Nicotine 14 MG DAILY 06/21 1000 06/21 TOP 1109 Non-Formulary 0 SEE ADMIN CRITERIA 06/20 1630 CAN Medication ANY Pantoprazole Sodium 0 .STK-MED ONE 06/20 1801 DC IV Pantoprazole Sodium 40 MG DAILY 06/20 1730 06/21 IV 1109 Potassium Chloride 40 MEQ Q20H 06/20 1700 DC 06/21 Dextrose/Sodium 1,000 ML IV 1210 Chloride Review of Systems Review of Systems: as per HPI. 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 Home Services at Home: None Smoking Status: Current Everyday Smoker ETOH Use: denies use Illicit Drug Use: clean for 2 years Exam & Diagnostic Data Vital Signs and I&O Vital Signs Date Time Temp Pulse Resp B/P Pulse O2 O2 Flow FiO2 Ox Delivery Rate 06/21 1128 92 Nasal 3.0L Cannula 06/21 0800 98.7 84 25 123/70 91 Nasal 2.0L Cannula 06/21 0400 91 Nasal 1.5L Cannula 06/21 0000 98.4 78 16 122/64 90 Nasal 1.5L Cannula 06/20 2217 92 Nasal 1.5L Cannula 06/20 2138 Nasal 1.0L Cannula 06/20 2129 91 Nasal 1.0L Cannula 06/20 1955 97.7 77 18 136/79 92 Room Air 06/20 1847 96.6 74 18 125/78 91 Room Air 06/20 1811 97.4 81 18 139/78 91 Room Air Intake & Output 06/21 1600 06/21 0800 06/21 0000 Intake Total 765 408 100 Output Total 275 1050 0 Balance 490 -642 100 Intake, IV 675 408 100 Intake, Oral 0 Intake, Other 60 Intake, Tube 30 Irrigant Number 0 Bowel Movements Output, 200 Emesis Output, 0 Gastric Drainage Output, Urine 275 850 Patient 126 lb Weight Physical Exam: Alert but completely aphasic. Seems confused possibly reduced comprehension. Has a right homonymous hemianopsia. EOMI, but has a gaze deviation to the left and can only bring the eyes 3/[address] on right gaze. Poor gag reflex, gargling secretions in her throat. Tongue midline. V1-V3 are normal. Complete flaccid hemiplegia on the right side with hyperreflexia and upgoing toe. Left side is strong but hyper-reflexive. Cannot test FNF. Cannot test gait. Possibly sensory loss to touch over right side of body. Last 48 Hours of Lab Results: Laboratory Tests 06/21 06/20 0420 1645 Blood Gas pH (7.35 - 7.45 PH) 7.39 pCO2 (35 - 45 TORR) 50 H pO2 (80 - 100 TORR) 63 L HCO3 (21 - 28 MEQ/L) 29 H ABG O2 Sat (Measured) (>96.0 %) 89.0 L P-50 (Temp Corrected) N Carboxyhemoglobin (1.5 - 5.0 %) 3.1 O2 Concentration % R/A Temperature (97.0 - 100.0 FARH) 96.7 L Chemistry Sodium (137 - 145 mmol/L) 141 Potassium (3.5 - 5.1 mmol/L) 4.2 Chloride (98 - 107 mmol/L) 103 Carbon Dioxide (22 - 30 mmol/L) 29 Anion Gap (5 - 16) 9 BUN (7 - 17 mg/dL) 11 Creatinine (0.5 - 1.0 mg/dL) 0.7 Estimated GFR (>60 ml/min) > 60 BUN/Creatinine Ratio (7 - 25 %) 15.7 Phosphorus (2.5 - 4.5 mg/dL) 5.5 H Magnesium (1.6 - 2.3 mg/dL) 1.5 L Triglycerides (<150 mg/dL) 159 H Cholesterol (<200 MG/DL) 153 LDL Cholesterol, Calc (65 - 129 mg/dL) 94 HDL Cholesterol (40 - 60 mg/dL) 28 L Cholesterol/HDL Ratio (0.00 - 4.23 %) 5 H Hematology CBC w Diff NO MAN DIFF REQ WBC (4.8 - 10.8 /CUMM) 7.5 RBC (4.20 - 5.40 /CUMM) 4.20 Hgb (12.0 - 16.0 G/DL) 13.5 Hct (37 - 47 %) 39.4 MCV (81.0 - 99.0 FL) 93.8 MCH (27.0 - 31.0 PG) 32.2 H RDW (11.5 - 14.5 %) 13.5 Plt Count (130 - 400 /CUMM) 187 MPV (7.4 - 10.4 FL) 8.6 Gran % (42.2 - 75.2 %) 54.0 Lymphocytes % (20.5 - 51.1 %) 37.0 Monocytes % (1.7 - 9.3 %) 7.8 Eosinophils % (0 - 5 %) 1.0 Basophils % (0.0 - 2.0 %) 0.2 Absolute Granulocytes (1.4 - 6.5 /CUMM) 4.0 Absolute Lymphocytes (1.2 - 3.4 /CUMM) 2.8 Absolute Monocytes (0.10 - 0.60 /CUMM) 0.6 Absolute Eosinophils (0.0 - 0.7 /CUMM) 0.1 Absolute Basophils (0.0 - 0.2 /CUMM) 0 PUBS MCHC (33.0 - 37.0 G/DL) 34.3 Miscellaneous Phlebotomy Draw Site RIGHT RADIAL 06/20 06/20 1428 1405 Chemistry Sodium (137 - 145 mmol/L) 142 Potassium (3.5 - 5.1 mmol/L) 4.2 Chloride (98 - 107 mmol/L) 101 Carbon Dioxide (22 - 30 mmol/L) 33 H Anion Gap (5 - 16) 8 BUN (7 - 17 mg/dL) 11 Creatinine (0.5 - 1.0 mg/dL) 0.7 Estimated GFR (>60 ml/min) > 60 BUN/Creatinine Ratio (7 - 25 %) 15.7 Glucose (65 - 99 mg/dL) 106 H Calcium (8.4 - 10.2 mg/dL) 9.3 Total Bilirubin (0.2 - 1.3 mg/dL) 0.4 AST (14 - 36 U/L) 49 H ALT (9 - 52 U/L) 51 Alkaline Phosphatase (<127 U/L) 59 Troponin I (< 0.11 ng/ml) < 0.01 Total Protein (6.3 - 8.2 g/dL) 7.4 Albumin (3.5 - 5.0 g/dL) 3.7 Globulin (1.9 - 4.2 gm/dL) 3.7 Albumin/Globulin Ratio (1.1 - 2.2 %) 1.0 L Coagulation PT (9.4 - 12.5 SEC) 12.8 H INR (0.90 - 1.19) 1.22 H APTT (25 - 37 SEC) 33 Toxicology Urine Opiates Screen (>2000 NG/ML) < 100.00 Methadone Screen (>300 NG/ML) < 40 Barbiturate Screen (>200 NG/ML) < 60 Ur Phencyclidine Scrn (>25 NG/ML) < 6.00 Amphetamines Screen (>1000 NG/ML) 165 U Benzodiazepines Scrn (>200 NG/ML) < 85 Urine Cocaine Screen (>300 NG/ML) < 50 Urine Cannabis Screen (>50 NG/ML) 6.60 Urines Urinalysis MOD H Urine Color (YEL,AMB,STR) YEL Urine Clarity (CLEAR) HAZY H Urine pH (5.0 - 8.0) 6.0 Ur Specific [place] (1.001 - 1.035) 1.020 Urine Protein (NEG,<30 MG/DL) NEG Urine Ketones (NEG) NEG Urine Nitrite (NEG) NEG Urine Bilirubin (NEG) NEG Urine Urobilinogen (0.1 - 1.0 EU/dl) 0.2 Ur Leukocyte Esterase (NEG) NEG Ur Microscopic SEDIMENT EXAMINED Urine RBC (0 - 5 /HPF) 5-10 H Urine WBC (0 - 2 /HPF) RARE Ur Epithelial Cells (NONE,FEW) MOD H Urine Mucus (FEW,NONE) RARE Urine Hemoglobin (NEG) SMALL H Urine Glucose (N MG/DL) NEG 06/20 1345 Hematology CBC w Diff NO MAN DIFF REQ WBC (4.8 - 10.8 /CUMM) 5.7 RBC (4.20 - 5.40 /CUMM) 4.41 Hgb (12.0 - 16.0 G/DL) 14.1 Hct (37 - 47 %) 41.4 MCV (81.0 - 99.0 FL) 93.8 MCH (27.0 - 31.0 PG) 31.9 H RDW (11.5 - 14.5 %) 13.4 Plt Count (130 - 400 /CUMM) 183 MPV (7.4 - 10.4 FL) 9.2 Gran % (42.2 - 75.2 %) 48.7 Lymphocytes % (20.5 - 51.1 %) 42.0 Monocytes % (1.7 - 9.3 %) 6.9 Eosinophils % (0 - 5 %) 1.8 Basophils % (0.0 - 2.0 %) 0.6 Absolute Granulocytes (1.4 - 6.5 /CUMM) 2.8 Absolute Lymphocytes (1.2 - 3.4 /CUMM) 2.4 Absolute Monocytes (0.10 - 0.60 /CUMM) 0.4 Absolute Eosinophils (0.0 - 0.7 /CUMM) 0.1 Absolute Basophils (0.0 - 0.2 /CUMM) 0 PUBS MCHC (33.0 - 37.0 G/DL) 34.0 Imaging/Other Studies: NCHCT: FINDINGS: There is no evidence of acute intracranial hemorrhage or territorial infarction. No abnormal mass effect or midline shift is seen. Schultz to white matter differentiation is well preserved. No extra-axial fluid collections are identified. The ventricles are normal in size. There is no abnormal attenuation within the brain parenchyma. The osseous structures and soft tissues are normal. The mastoid air cells and visualized portions of the paranasal sinuses are well aerated. IMPRESSION: No acute intracranial process seen. Assessment/Plan Assessment: 56 year old heavy smoker with a new onset L MCA stroke, not clear if cardioembolic, arterioembolic or thrombotic. The patient was out of TPA window as she awoke with the symptoms. Recommendations: 1. NPO till swallow evaluation. ASA 81mg via NG tube. 2. BPs stable - permissive for now. 3. Atorvastatin 80mg PO qhs via NG tube. 4. Repeat swallow evaluation until passes. 5. MRI brain. 6. CD and Echo results pending. 7. HbA1c, b12, tsh. 8. PT/OT/Speech. 9. Telemetry to rule out PAF. If none is found should get a REVEAL/LINQ x 3 month as outpt. 10. Smoking cessation. YC Consult Acknowledgment - Thank you for your consult request.
--- NOTE | 2016-06-21 17:33 | Cons- CRCU ---
MP BURDEN 06/21/16 1701: General Information and HPI Consulting Request Date of Consult: 06/21/16 Requested By: Dr. Negrete Reason for Consult: Acute hypoxic respiratory failure Source of Information: family, old records Exam Limitations: clinical condition History of Present Illness: 55-year-old woman with past medical history of substance abuse(IV injection), clean for 2 years on Suboxone, anxiety/depression/bipolar on olanzapine and fluoxetine, daily smoker of 2 packs a day was BIBA to the hospital on 06/20/16 for chief complaint of right-sided weakness. Patient was unable to talk and history was obtained from patient's fianc and daughter. In the morning on 06/20/16 around 9:30 AM patient reporting feeling funny and gradually she had weakness of her right arm and subsequently with a soft early right leg with unsteady gaits. Patient developed slurred speech gradually an ambulance was called around 1 PM. Patient took her Suboxone in the morning and also ate her cereal around 12 PM. According the family patient denied any chest pain, dizziness, shortness of breath, blurry vision, tinnitus, nausea, vomiting, headache, chills, fevers. Initially in the ED patient was able to express individual ports were Jamel and TV, however she failed a swallow evaluation and when the admitting team saw the patient she was unable to talk. Vital signs on admission blood pressure 155/81, respiratory rate 20, O2 saturation 92, pulse rate 75, temperature 96.[address] did not show any signs of acute pathology. Since patient was drowsy ABG was done which showed PCO2 of 50, PO2 of 63, normal pH, HCO3 29, O2 saturation 89% on room air. Bedside swallow eval was done in [facility] ED which she failed. She was admitted to the ICU for possibly evolving stroke. Last night she was ronchorus on exam and pulled out her NG tube. This AM she desaturated and her oxygen requirements increased from being on 2.0 liters to 5.0 liters. This morning she failed a formal swallow eval and was started on Unsayn for possible aspiration PNA. CRCU consult is now being requested for worsening respiratory status in the setting of ischemic stroke. Allergies/Medications Allergies: Coded Allergies: azithromycin (TREMORS 06/20/16) erythromycin base (TREMORS 06/20/16) Home Med List: Buprenorphine HCl/Naloxone HCl (Suboxone 8 MG-2 MG Sl Film) 8 MG-2 MG FILM 1 STR SL BID MENTAL HEALTH (Reported) Cholecalciferol (Vitamin D3) (Vitamin D) 2,000 UNIT CAPSULE 1 CAP PO DAILY SUPPLEMENT (Reported) Cyclosporine (Restasis) 0.05 % DROPERETTE 1 GTT OPH BID BOTH EYES (Reported) Fluoxetine HCl 20 MG CAPSULE 1 CAP PO DAILY MENTAL HEALTH (Reported) Olanzapine 5 MG TABLET 1 TAB PO QPM MENTAL HEALTH (Reported) Current Medications: Current Medications Sig/Eduardo Start time Last Medication Dose Route Stop Time Status Admin Acetaminophen 650 MG Q6 PRN 06/20 1730 AC PO Albuterol Sulfate 3 ML Q4P PRN 06/20 2200 AC 06/21 INH 1127 Ampicillin Sodium/ 3,000 MG Q6H 06/21 1400 AC Sulbactam Sodium IV Sodium Chloride 100 ML Aspirin 81 MG DAILY 06/21 1000 AC 06/21 PO 1109 Atorvastatin Calcium 80 MG 1700 06/20 1700 AC 06/20 PO 2354 Buprenorphine/ 1 TAB BID 06/21 1000 AC 06/21 Naloxone SL 1108 Cyclosporine 1 GTT Q12 06/20 2200 AC 06/21 OPH 1109 Dextrose/Sodium 1,000 ML Q13H 06/21 1300 AC 06/21 Chloride IV 1344 Dextrose/Sodium 1,000 ML Q20H 06/21 1230 DC 06/21 Chloride IV 1228 Enoxaparin Sodium 40 MG DAILY 06/21 1000 AC 06/21 SC 1109 Magnesium Sulfate 1 GM Q2H 06/21 1000 DC 06/21 Dextrose/Water 100 ML IV 06/21 1359 1210 Magnesium Sulfate 2 GM ONCE ONE 06/21 0900 CAN Dextrose/Water 250 ML IV 06/21 1259 Magnesium Sulfate 1 GM ONCE ONE 06/21 0900 CAN Dextrose/Water 100 ML IV 06/21 1259 Nicotine 14 MG DAILY 06/21 1000 AC 06/21 TOP 1109 Pantoprazole Sodium 0 .STK-MED ONE 06/20 1801 DC IV Pantoprazole Sodium 40 MG DAILY 06/20 1730 AC 06/21 IV 1109 Potassium Chloride 40 MEQ Q20H 06/20 1700 DC 06/21 Dextrose/Sodium 1,000 ML IV 1210 Chloride Review of Systems Review of Systems Constitutional: Reports: see HPI. EENTM: Reports: see HPI. Cardiovascular: Reports: see HPI. Respiratory: Reports: see HPI. GI: Reports: see HPI. Genitourinary: Reports: see HPI. Musculoskeletal: Reports: see HPI. Neurological/Psychological: Reports: see HPI. Past History Travel History Traveled to [place] past 21 day No Medical History Blood Transfusion Hx: No Neurological: NONE EENT: NONE Cardiovascular: NONE Respiratory: NONE Gastrointestinal: NONE Hepatic: NONE Renal: NONE Musculoskeletal: NONE Psychiatric: anxiety, bipolar disease, depression, opioid dependence Endocrine: NONE Blood Disorders: NONE Cancer(s): NONE DIRECT MARKETING INTERN/Reproductive: NONE Surgical History Surgical History: non-contributory Family History Relations & Conditions If Any: Relation not specified for: *No pertinent family history Psychosocial History Where Do You Live? Home Services at Home: None Smoking Status: Current Everyday Smoker ETOH Use: denies use Illicit Drug Use: clean for 2 years Functional Ability ADLs Independent: dressing, eating, toileting, bathing. Ambulation: independent Exam & Diagnostic Data Last 24 Hrs of Vital Signs/I&O Vital Signs Date Time Temp Pulse Resp B/P Pulse O2 O2 Flow FiO2 Ox Delivery Rate 06/21 1200 91 Nasal 5.0L Cannula 06/21 1128 92 Nasal 3.0L Cannula 06/21 0800 98.7 84 25 123/70 91 Nasal 2.0L Cannula 06/21 0800 91 Nasal 2.0L Cannula 06/21 0400 91 Nasal 1.5L Cannula 06/21 0000 98.4 78 16 122/64 90 Nasal 1.5L Cannula 06/20 2217 92 Nasal 1.5L Cannula 06/20 2138 Nasal 1.0L Cannula 06/20 2129 91 Nasal 1.0L Cannula 06/20 1955 97.7 77 18 136/79 92 Room Air 06/20 1847 96.6 74 18 125/78 91 Room Air 06/20 1811 97.4 81 18 139/78 91 Room Air Intake & Output 06/21 1600 06/21 0800 06/21 0000 Intake Total 765 408 100 Output Total 275 1050 0 Balance 490 -642 100 Intake, IV 675 408 100 Intake, Oral 0 Intake, Other 60 Intake, Tube 30 Irrigant Number 0 Bowel Movements Output, 200 Emesis Output, 0 Gastric Drainage Output, Urine 275 850 Patient 126 lb Weight Physical Exam General Appearance: alert Head: atraumatic, has NG tube in place Eyes: Bilateral: PERRL. Neck: normal inspection, supple Respiratory: rhonchi (bilateral diffuse) Cardiovascular: regular rate/rhythm Gastrointestinal: normal bowel sounds, soft, non-tender Neurologic/Psych: awake, alert, aphasia, motor weakness (on RLE and RUE; ), 4/5 on lue, lle, mild facial droop, PERRLA, babinski upgping on R side Cranial Nerves: PERRL Last 48 Hrs of Labs/Edgar: Laboratory Tests 06/21/16 042: Hemoglobin A1c Pending 06/21/16419: Anion Gap 9, Estimated GFR > 60, BUN/Creatinine Ratio 15.7, Phosphorus 5.5 H, Magnesium 1.5 L, Triglycerides 159 H, Cholesterol 153, LDL Cholesterol, Calc 94, HDL Cholesterol 28 L, Cholesterol/HDL Ratio 5 H, Vitamin B12 Pending, TSH Pending, CBC w Diff NO MAN DIFF REQ, RBC 4.20, MCV 93.8, MCH 32.2 H, RDW 13.5, MPV 8.6, Gran % 54.0, Lymphocytes % 37.0, Monocytes % 7.8, Eosinophils % 1.0, Basophils % 0.2, Absolute Granulocytes 4.0, Absolute Lymphocytes 2.8, Absolute Monocytes 0.6, Absolute Eosinophils 0.1, Absolute Basophils 0, PUBS MCHC 34.3 06/20/16 1645: pH 7.39, pCO2 50 H, pO2 63 L, HCO3 29 H, ABG O2 Sat (Measured) 89.0 L, P-50 (Temp Corrected) N, Carboxyhemoglobin 3.1, O2 Concentration % R/A, Temperature 96.7 L, Phlebotomy Draw Site RIGHT RADIAL 06/20/16 1428: Anion Gap 8, Estimated GFR > 60, BUN/Creatinine Ratio 15.7, Glucose 106 H, Calcium 9.3, Total Bilirubin 0.4, AST 49 H, ALT 51, Alkaline Phosphatase 59, Troponin I < 0.01, Total Protein 7.4, Albumin 3.7, Globulin 3.7, Albumin/ Globulin Ratio 1.0 L, PT 12.8 H, INR 1.22 H, APTT 33 06/20/16 1405: Urine Opiates Screen < 100.00, Methadone Screen < 40, Barbiturate Screen < 60, Ur Phencyclidine Scrn < 6.00, Amphetamines Screen 165, U Benzodiazepines Scrn < 85, Urine Cocaine Screen < 50, Urine Cannabis Screen 6.60, Urinalysis MOD H, Urine Color YEL, Urine Clarity HAZY H, Urine pH 6.0, Ur Specific [place] 1.020, Urine Protein NEG, Urine Ketones NEG, Urine Nitrite NEG, Urine Bilirubin NEG, Urine Urobilinogen 0.2, Ur Leukocyte Esterase NEG, Ur Microscopic SEDIMENT EXAMINED, Urine RBC 5-10 H, Urine WBC RARE, Ur Epithelial Cells MOD H, Urine Mucus RARE, Urine Hemoglobin SMALL H, Urine Glucose NEG 06/20/16 1345: CBC w Diff NO MAN DIFF REQ, RBC 4.41, MCV 93.8, MCH 31.9 H, RDW 13.4, MPV 9.2, Gran % 48.7, Lymphocytes % 42.0, Monocytes % 6.9, Eosinophils % 1.8, Basophils % 0.6, Absolute Granulocytes 2.8, Absolute Lymphocytes 2.4, Absolute Monocytes 0.4 , Absolute Eosinophils 0.1, Absolute Basophils 0, PUBS MCHC 34.0 Diagnostic Data EKG Results NSR, HR: 75, QTC 443, inverted T's in V1 and V2 and possibly inverted P in V1 CXR Results FINDINGS: Cardiac leads overlie the chest. An enteric tube is in place. The lungs are well expanded. There is no focal consolidation, edema, or effusion. No pneumothorax. The cardiomediastinal silhouette is within normal limits. No acute osseous abnormality. IMPRESSION: Clear lungs. Other Results SERVICE DATE: 06/20/16 EXAM TYPE: CAT - CT HEAD WO IV CONTRAST EXAMINATION: CT HEAD WITHOUT CONTRAST CLINICAL INFORMATION: Right-sided weakness COMPARISON: None. TECHNIQUE: Contiguous axial imaging was performed from the skull base to vertex without intravenous administration of contrast. DLP: 600 mGy-cm. FINDINGS: There is no evidence of acute intracranial hemorrhage or territorial infarction. No abnormal mass effect or midline shift is seen. Schultz to white matter differentiation is well preserved. No extra-axial fluid collections are identified. The ventricles are normal in size. There is no abnormal attenuation within the brain parenchyma. The osseous structures and soft tissues are normal. The mastoid air cells and visualized portions of the paranasal sinuses are well aerated. IMPRESSION: No acute intracranial process seen. Assessment/Plan Impression/Plan: In summary this is a 55-year-old woman with PMH of substance abuse(IV injection) , clean for 2 years on Suboxone, anxiety/depression/bipolar on olanzapine and fluoxetine, daily smoker of 2 packs a day is admitted to the ICU for new onset evolving ischemic stroke of L MCA, with hemiplegia of right side, and who subsequently desaturated 2/2 aspiration and is on 3.0liters of oxygen via NC now. Assessment and Plan # Acute hypoxic respiratory failure Most likely 2/2 aspiration (a swallow eval was attempted in the ED) vs COPD exacerbation - unlikely (though patient is an avid smoker) and subsequently destaurated and was ronchorous on PE. Continue Unasyn 3000mg Q6 IV for now. F/U LRC, BC CXR did not reveal any radiological evidence of aspiration pneumonitis, and patient is currently afebrile. TRC/ Nebs. Would hold off strating on IV corticosteroids for now. # Acute ischemic L MCA stroke - Continue ASA, statin - F/U US carotids, Echo to r/o paradoxical emboli, telemetry monitoring to r/o arrythmias jonelle PAF that may be the source of embolism, MRI of brain - PT/OT/ speech eval - NPO for now - Neurology on board. F/U recs. - Advised and counselled regarding smoking cessation. #Hx of opioid abuse and nicotine dependence - Continue suboxone via NG tube and nicotine patch. #DVT Prophylaxis - Lovenox 40mg SC daily - Diet - NPO for now. - Continue on maintainence fluids. - Code status - Full Code. Consult Acknowledgment - Thank you for your consult request. JAD MEYER MD 06/22/16 0942: Assessment/Plan Other Findings/Comments: Jad Ma M.D. have examined this patient, reviewed available EMR data, personally reviewed images, discussed with resident/PA/HR DIRECTOR, discussed management plan with housestaff and nursing staff, discussed managment plan all of healthcare providers, discussed management plan with patient and/or family, agreed with resident/PA/HR DIRECTOR. The past history and parts of the chart have been autopopulated. Impression 56 year old woman with a CVA - consistent with left mca, awaiting MRI for confirmation, also with history of smoking and likely aspiration pneumonia, with an episode of desaturation requiring as high as 5L, currently 3LNC. Plan Respiratory/ID -f/u cxr this am -clear lungs yesterday -concern for aspiration pna vs pneumonitis, although normal xr for now -tmax 100, wbc 13 -sputum cx CVS -f/u ECHO -hemodynamically significant stenosis of carotids, vascular surgery consultation -cardiology evaluation given cva Heme -aspirin per neurology -monitor cbc, coags Metabolic -electrolyte repletion -monitor urine output Alimentary -NPO, cannot swallow, NGT Neuro -neurology follow up -mri today -aspirin -statin/lipitor DVT prophylaxis with Lovenox TTS 60 min Consult Acknowledgment - Thank you for your consult request.
[2016-06-22] VITALS: BP 124/60
--- NOTE | 2016-06-22 02:00 | NUR ---
PATIENT AROUSES READILY FROM SLEEP.ADDISON. APHASIA CONTINUES BUT PATIENT ABLE TO FOLLOW COMMANDS,SHAKE HEAD YES AND NO.NO MOVEMENT NOTED TO R EXTREMITIES,NO DRIFT TO L EXTREMITIES.IVF AT 75 ML/HR.
[2016-06-22 05:47] LABS: ABSOLUTE BASOPHIL COUNT 0.1 /CUMM (0.0-0.2); ABSOLUTE EOSINOPHIL COUNT 0 /CUMM (0.0-0.7); ABSOLUTE GRANULOCYTE CT 8.1 /CUMM (1.4-6.5); ABSOLUTE LYMPH COUNT 3.8 /CUMM (1.2-3.4); ABSOLUTE MONOCYTE COUNT 0.9 /CUMM (0.10-0.60); BASOPHIL % 0.4 % (0.0-2.0); EOSINOPHIL % 0.2 % (0-5); GRANULOCYTE % 62.8 % (42.2-75.2); HEMATOCRIT 36.7 % (37-47); MEAN CORPUSCULAR HGB 32.4 PG (27.0-31.0); MEAN CORPUSCULAR HGB CONC 34.7 G/DL (33.0-37.0); MEAN CORPUSCULAR VOLUME 93.5 FL (81.0-99.0); PLATELET COUNT 171 /CUMM (130-400); RBC DISTRIBUTION WIDTH 13.4 % (11.5-14.5); RED BLOOD CELL CT 3.92 /CUMM (4.20-5.40)
--- NOTE | 2016-06-22 07:45 | PN- Resident CRCU ---
Subjective HPI/CRCU Issues: Patient is a 56 YO F with PMH signficant for opiate abuse (on suboxone from 2 yrs), anxiety, depression, bipolar disorder came to ER with weakness on right upper and lower extremity with aphasia. She is able to say her name by the time she came to ER eventually became severely dyarthric. she failed bedside swallow evaluation in the ER. CT scan in the ER dosent reveal any acute pathology. She is admitted to ICU for neurochecks every 1 hr. Current CRCU issues 1. Left MCA territorial infarction with mild mass effect 2. Left ICA Stenosis 3. Aspiration pneumonia 24 Hour Events: I saw and examined the patient today morning. She is doing better, lying comfortably on her bed. She spiked around 100 temp during night otherwise no significant events. Objective Vital Signs & I&O Last 8 Hrs of Vitals and I&O: Intake & Output 06/22 1600 Intake Total 866 Output Total 400 Balance 466 Intake, IV 806 Intake, Oral 0 Intake, Other 60 Number 0 Bowel Movements Output, Urine 400 Patient 57.266 kg Weight VS - stable except for a temp of 100 HR is 94-100, BP 110-130/80mmHg On 5L of NC initially which subsequently tapered down to 2L NC. Currently on D506/27 NS running @75ml/hr I/O - 2797/970 with a net positive balance of 1900 Exam General Appearance: well developed/nourished, alert, awake, comfortable, mild distress, thin Head: atraumatic, normal appearance Ears, Nose, Throat: normal pharynx, normal ENT inspection, hearing grossly normal Neck: normal inspection, supple Respiratory: chest non-tender, rhonchi, Rhonchorous breath sounds Cardiovascular: regular rate/rhythm, normal peripheral pulses, tachycardia Gastrointestinal: normal bowel sounds, soft, non-tender Extremities: normal inspection, normal capillary refill Cranial Nerves: normal hearing, abnormal gag reflex, facial asymmetry, facial weakness, Global aphasia Skin: intact IV Drips IV Drips: D506/27 NS @ 75ml/hr Current Medications: Current Medications Sig/Eduardo Start time Last Medication Dose Route Stop Time Status Admin Acetaminophen 650 MG Q6 PRN 06/20 1730 AC PO Albuterol Sulfate 3 ML Q4P PRN 06/20 2200 AC 06/21 INH 2137 Ampicillin Sodium/ 3,000 MG Q6H 06/21 1400 AC 06/22 Sulbactam Sodium IV 1410 Sodium Chloride 100 ML Aspirin 81 MG DAILY 06/21 1000 AC 06/22 PO 0907 Atorvastatin Calcium 80 MG 1700 06/20 1700 AC 06/21 PO 1719 Buprenorphine/ 1 TAB BID 06/21 1000 AC 06/22 Naloxone SL 0908 Cyclosporine 1 GTT Q12 06/20 2200 AC 06/22 OPH 0908 Dextrose/Sodium 1,000 ML Q13H 06/21 1300 AC 06/22 Chloride IV 1410 Enoxaparin Sodium 40 MG DAILY 06/21 1000 AC 06/22 SC 0908 Magnesium Sulfate 1 GM ONCE ONE 06/22 0730 DC 06/22 Dextrose/Water 100 ML IV 06/22 1129 0737 Nicotine 14 MG DAILY 06/21 1000 AC 06/22 TOP 0908 Pantoprazole Sodium 40 MG DAILY 06/20 1730 AC 06/22 IV 0908 Potassium Chloride 10 MEQ ONCE ONE 06/22 0730 DC 06/22 IV 06/22 0731 0907 Impression/Plan Impression/Problem List Impression: Patient is a 56 YO F with PMH signficant for opiate abuse (on suboxone from 2 yrs), anxiety, depression, bipolar disorder came to ER with weakness on right upper and lower extremity with aphasia. She is able to say her name by the time she came to ER eventually became severely dyarthric. she failed bedside swallow evaluation in the ER. CT scan in the ER dosent reveal any acute pathology. MRI today is signfiicant of Left MCA with mass effect and left carotid stenosis significant enough to effect the circualtion. She is admitted to ICU for neurochecks every 1 hr. Problem List: 1. CVA (cerebral vascular accident) 2. Aspiration pneumonia Pain Ratin Tomorrow's Labs & Rationales: ICU bundle cbc Plan Respiratory: Aspiration pneumonia * Cough with whitish phelgm production * Satuarting in 90's with a 2L NC. * CXR shows right lower lobe infitrate today with a white count of 13.5 * Unasyn 3gm Q6 started yesterday Infectious Diseases: On unasyn 3g Q6 for aspiration pneumonia as above. Cardiovascular: Cardio consult is placed. ECHO shows EF of >65%. Hematology: Elevated white count of around 13.5 today Metabolic: Hypokalemia and hypomagnesemia * K of 3.9 and Mag of 1.7 * Kcl of 10mEq IV, MgSo4 of 1gm is given * will monitor daily and replete as needed. Alimentary: Failed swallow evaluation twice. If continues further a PEG tube is suggested. currently on D51/2NS @75ml/hr Start Neurological: Left MCA stroke with Left ICA stenosis: * Complete right sided CVA with evident infarction on MRI with mass effect. * NG tube in place for medications. * Aspirin 300mg OH given in ER and placed on Aspirin 81mg, atorvastatin 80mg via NG tube * Failed bedside swallow evaluation, didnt perform formal swallow evaluation today as per the clinical condition * Currently NPO with D51/2 NS @ 75ml/hr and tube feeds. * ECHO shows EF >65% and carotid ultrasound shows hemodynamically significant stenosis. * CT angio neck with contrast and MRA of brain without contrast was requested - awaiting results. * Neurology and neurosurgery on board. DVT/Prophylaxis: SC lovenox Code Status: Full Code
--- NOTE | 2016-06-22 07:51 | NUR ---
@0800-PT OPENS EYES TO VERBAL STIMULI. PUPILS EQUAL AND REACTIVE, 3MM/BRISK. R SIDE REMAINS FLACCID TO RUE AND RLE. PT NODS NO TO SENSATION TO RLE. + PULSES NOTED. R FACIAL DROOP CONT. PT ABLE TO FOLLOW COMMANDS OTHERWISE AND NOD Y/N APPROPRIATELY TO QUESTIONS. CONT ON 3LNC, O2SAT 92-93% WITH SCATTERED RHONCHI AUSCULTATED. YANKOR SUCTION AT BEDSIDE IF NEEDED, NO COUGH NOTED AT THIS TIME. NSR HR 70S. BP STABLE. NGT NOTED TO L NARES, TAPED AT 61CM, CLAMPED AT THIS TIME-FOR MED USE ONLY AT THIS TIME. PLAN FOR REPEAT SWALLOW EVAL TODAY. ABD SOFT, +BS. NO BM SINCE 06/19. JEFFREY IN PLACE WITH YELLOW URINE NOTED. SKIN INTACT. IVF CONT TO INFUSE AT 75ML/HR. IV MAG BOLUS 1 GM INFUSING ORD FOR MG LEVEL 1.7. PT TO RECIEVE KCL 10MEQ BOLUS THIS AM FOR K+ LEVEL 3.9. IV UNASYN Q6HRS. CONT TO MONITOR CLOSELY. CALL COBB WITHIN REACH.
[2016-06-22 08:00] VITALS: BP 110/60
--- NOTE | 2016-06-22 08:00 | ULTRASOUND REPORT ---
EXAMINATION: US DUPLEX CAROTID AND VERTEBRAL CLINICAL INFORMATION: Right-sided CVA. COMPARISON: None. TECHNIQUE: Real-time ultrasound and Doppler techniques (integrating B-mode 2D vascular images, Doppler spectral analysis and color flow Doppler imaging) were utilized to interrogate the extracranial carotid and vertebral arteries bilaterally. The degree of stenosis determined by criteria similar to NASCET. FINDINGS: 1. On the right: There is a hemodynamically significant stenosis correlating to 50-79% diameter reduction of the proximal internal carotid artery. A moderate amount of hyperechoic plaque is noted at the bifurcation extending into the proximal internal carotid artery. The vertebral artery is patent demonstrating antegrade flow. The right external carotid artery contains mild to moderate disease proximally. The common carotid artery velocity is 104 cm/s. The internal carotid artery velocities are 132 cm/s systolic and 42 cm/s diastolic. The external carotid artery velocity is 183 cm/s. 2. On the left: There is a hemodynamically significant stenosis correlating to 50-79% diameter reduction of the proximal internal carotid artery. A moderate amount of hyperechoic plaque is noted at the bifurcation extending into the proximal internal carotid artery. The vertebral artery is patent demonstrating antegrade flow. The left external carotid artery contains mild to moderate disease proximally. The common carotid artery velocity is 75 cm/s. The internal carotid artery velocities are 269 cm/s systolic and 58 cm/s diastolic. The external carotid artery velocity is 173 cm/s. IMPRESSION: Bilateral hemodynamically significant stenoses consistent with a 50-79% diameter reduction involving both the proximal left and right internal carotid arteries. The degree of stenosis is greater in the left internal carotid artery compared to the right. Further evaluation can be obtained with CTA of the neck, if clinically indicated.
--- NOTE | 2016-06-22 09:17 | NUR ---
@0900-CALL RECIEVED FROM MRI. PLAN FOR MRI OF HEAD THIS AM AT 1030. CONSENT OBTAINED BY MRI STAFF FROM PT DAUGHTER. NOSE RING REMOVED FROM L NARES AND PLACED IN BAG AT BEDSIDE. NICOTINE PATCH ALSO REMOVED FROM L ARM. IV ABX INFUSING AT THIS TIME. KARTHIK SUCTIONED MIN AMTS OF YELLOW TINGED SPUTUM FROM THROAT. CONT TO MONITOR CLOSELY. CALL COBB WITHIN REACH.
--- NOTE | 2016-06-22 11:34 | RADIOLOGY REPORT ---
EXAMINATION: XR PORTABLE CHEST CLINICAL INFORMATION: Shortness of breath. COMPARISON: 06/22/2016 TECHNIQUE: Portable view of the chest was obtained. FINDINGS: An enteric tube extends into the stomach. Cardiac leads overlie the chest. The lungs are well expanded. Increasing hazy opacity at the right lung base. No pneumothorax or pleural effusion. The cardiomediastinal silhouette is unchanged. IMPRESSION: Increasing hazy right basilar opacity could represent atelectasis or pneumonia. Aspiration also a consideration.
--- NOTE | 2016-06-22 12:08 | Event Note ---
Event Note Event Note: See CRCU consult for full details. Patient seen with housestaff 06/22/2016 Jad Ma M.D. have examined this patient, reviewed available EMR data, personally reviewed images, discussed with resident/PA/BODY PAINTER, discussed management plan with housestaff and nursing staff, discussed managment plan all of healthcare providers, discussed management plan with patient and/or family, agreed with resident/PA/BODY PAINTER. The past history and parts of the chart have been autopopulated. Impression 56 year old woman with a CVA - consistent with left mca, awaiting MRI for confirmation, also with history of smoking and likely aspiration pneumonia, with an episode of desaturation requiring as high as 5L, currently 3LNC. Plan Respiratory/ID -f/u cxr this am -clear lungs yesterday -concern for aspiration pna vs pneumonitis, although normal xr for now -tmax 100, wbc 13 -sputum cx -trc/nebs CVS -f/u ECHO -hemodynamically significant stenosis of carotids, vascular surgery consultation -cardiology evaluation given cva Heme -aspirin per neurology -monitor cbc, coags Metabolic -electrolyte repletion -monitor urine output Alimentary -NPO, cannot swallow, NGT Neuro -neurology follow up -mri today -aspirin -statin/lipitor DVT prophylaxis with Lovenox TTS 60 min
--- NOTE | 2016-06-22 12:16 | MRI REPORT ---
EXAMINATION: MR BRAIN WITHOUT CONTRAST CLINICAL INFORMATION: Right facial droop and right arm weakness. Slurred speech. COMPARISON: Head CT from 06/20/2016. TECHNIQUE: Multiplanar, multisequence imaging of the brain was performed without contrast. FINDINGS: There is an acute infarct in the left MCA vascular territory involving the left basal ganglia, left insular cortex, left frontal lobe, left temporal operculum, and left parietal lobe superiorly. No hemorrhagic conversion is visible on the gradient acquisition. There is mild regional mass effect. The ventricles are normal in size. No midline shift is seen. No extra-axial fluid collections are seen. The brainstem and cerebellum are normal. The craniovertebral junction, marrow signal, and midline structures are normal. There is mild mucosal thickening in the paranasal sinuses. The major intracranial flow voids at the level of the [place] are preserved. The left ICA flow void intracranially and in its upper cervical segment is smaller in caliber compared to the right ICA. The dural venous sinus flow voids are maintained. There is trace fluid in the mastoid air cells. IMPRESSION: Acute left MCA territorial infarction with mild mass effect. No hemorrhagic conversion or midline shift of structures. Small caliber of the left ICA flow void which is otherwise preserved. Findings are either due to an underlying dissection or possibly a near occlusion related to a proximal hemodynamically significant stenosis. Findings discussed with Dr. Telles at 12:10 PM on 06/22/2016.
--- NOTE | 2016-06-22 12:34 | NUR ---
@1030-THIS RN TRANSPORTED PT TO MRI FOR MRI OF HEAD, PT JUAN LUIS SCAN WELL. BACK TO CRCU AT 1130. ASSISTED TO COMF POSITION IN BED. DAUGHTER AT BEDSIDE AND IS TAKING PT NOSE RING HOME. MD AT BEDSIDE FOR UPDATE WITH FAMILY.
--- NOTE | 2016-06-22 14:28 | ECHOCARDIOGRAM REPORT ---
JIMMIE SEGURA Age: 56 : 1960 Gender: F Exam Date: 06/21/2016 14:08 Exam Location: [facility] Ht (in): 64 Wt (lb): 138 BSA: 1.69 BP: 122 / 64 Ordering Physician: JOVI LOVE MD Referring Physician: JOVI LOVE MD Technologist: Kristyn He TRI Room Number: 104 Indications: STROKE Rhythm: Sinus Technical Quality: Poor, Technically difficult study FINDINGS Left Ventricle Normal size left ventricle. Mild concentric left ventricular hypertrophy. No obvious regional wall motion abnormalities. Normal left ventricular ejection fraction visually estimated at >65%. Normal left ventricular diastolic filling pattern for age. Right Ventricle Normal right ventricular size and function. Right Atrium Normal right atrial size. Left Atrium Normal left atrial size. Mitral Valve Mildly calcified mitral valve annulus. Mitral valve mildly thickened. Trace mitral regurgitation. Aortic Valve Aortic valve not well visualized. Mild aortic sclerosis. No aortic valve stenosis or regurgitation. Tricuspid Valve Structurally normal tricuspid valve. Mild tricuspid regurgitation. No evidence of pulmonary hypertension. Right ventricular systolic pressure estimated to be within the normal range at 10 mmHg. Pulmonic Valve Pulmonic valve not well visualized. No pulmonic regurgitation. Pericardium Great Vessels Normal size aortic root. CONCLUSIONS Normal size left ventricle. Mild concentric left ventricular hypertrophy. Normal left ventricular ejection fraction visually estimated at > 65%. Normal left ventricular diastolic filling pattern for age. Normal right ventricular size and function. Normal atrial size. Trace mitral regurgitation. Mild tricuspid regurgitation. No evidence of pulmonary hypertension. Tigre Bowens M.D. (Electronically Signed) Final Date: 22 June 2016 14:27 MEASUREMENTS (Male / Female) Normal Values 2D ECHO LV Diastolic Diameter PLAX 4.4 cm 4.2 - 5.9 / 3.9 - 5.3 cm LV Systolic Diameter PLAX 2.7 cm 2.1 - 4.0 cm LV Fractional Shortening PLAX 38.6 % 25 - 46 % LV Ejection Fraction 2D Teich 69.2 % IVS Diastolic Thickness 0.6 cm LVPW Diastolic Thickness 1.1 cm LV Relative Wall Thickness 0.4 RV Internal Dim ED PLAX 2.3 cm 1.9 - 3.8 cm LVOT Diameter 1.9 cm Aortic Root Diameter 2.9 cm LA Systolic Diameter LX 2.4 cm 3.0 - 4.0 / 2.7 - 3.8 cm LA Volume 22.0 cm 18 - 58 / 22 - 52 cm Ascending Aorta Diameter 2.9 cm IVC Diameter Inspiration 1.5 cm DOPPLER AV Peak Velocity 153.0 cm/s AV Peak Gradient 9.4 mmHg AV Mean Velocity 109.0 cm/s AV Mean Gradient 5.0 mmHg AV Velocity Time Integral 26.6 cm LVOT Peak Velocity 131.0 cm/s LVOT Peak Gradient 6.9 mmHg LVOT Mean Velocity 78.1 cm/s LVOT Mean Gradient 3.0 mmHg LVOT Velocity Time Integral 22.5 cm LVOT Stroke Volume 63.8 cm AV Area Cont Eq vti 2.4 cm AV Area Cont Eq pk 2.4 cm MV Peak Velocity 98.3 cm/s MV Peak Gradient 3.9 mmHg MV Mean Velocity 64.4 cm/s MV Mean Gradient 2.0 mmHg Mitral E Point Velocity 86.9 cm/s Mitral A Point Velocity 75.0 cm/s Mitral E to A Ratio 1.2 MV PHT Velocity 91.2 cm/s MV Deceleration Kendall 267.0 cm/s MV Pressure Half Time 102.5 ms MV Area PHT 2.1 cm MV Deceleration Time 190.0 ms TR Peak Velocity 109.0 cm/s TR Peak Gradient 4.8 mmHg Right Atrial Pressure 5.0 mmHg Pulmonary Artery Systolic Pressu 9.8 mmHg Right Ventricular Systolic Press 9.8 mmHg PV Peak Velocity 92.0 cm/s PV Peak Gradient 3.4 mmHg PV Mean Velocity 65.1 cm/s PV Mean Gradient 2.0 mmHg PV Velocity Time Integral 13.4 cm LV E' Lateral Velocity 14.4 cm/s Mitral E to LV E' Lateral Ratio 6.0 LV E' Septal Velocity 9.1 cm/s Mitral E to LV E' Septal Ratio 9.6
[2016-06-22 16:00] VITALS: BP 114/70
--- NOTE | 2016-06-22 16:21 | RADIOLOGY REPORT ---
EXAMINATION: XR PORTABLE CHEST CLINICAL INFORMATION: Follow-up pul status. COMPARISON: X-ray of the chest performed 06/21/2016. TECHNIQUE: Portable view of the chest was obtained. FINDINGS: The cardiac and mediastinal contours are stable. The lungs are clear. There is no pleural effusion. There is a nasogastric tube. The tip is not well seen but projects over the stomach. IMPRESSION: No evidence for acute disease in the chest.
--- NOTE | 2016-06-22 16:44 | PN- Neurology ---
Subjective Subjective: Stable without any new improvement or any deterioration. Still in densely aphasic and hemiplegic. Review of Systems: No change Objective Vital Signs and I&Os Vital Signs Date Time Temp Pulse Resp B/P Pulse O2 O2 Flow FiO2 Ox Delivery Rate 06/22 1400 Nasal 3.0L Cannula 06/22 1200 93 Nasal 3.0L Cannula 06/22 0849 94 Nasal 3.0L Cannula 06/22 0800 97.6 77 18 110/60 93 Nasal 3.0L Cannula 06/22 0800 93 Nasal 3.0L Cannula 06/22 0400 93 Nasal 3.0L Cannula 06/22 0000 97.3 92 20 124/60 92 Nasal 3.0L Cannula 06/22 0000 92 Nasal 3.0L Cannula 06/21 2138 93 Nasal 3.0L Cannula 06/21 2000 93 Nasal 5.0L Cannula Intake & Output 06/22 1600 06/22 0800 06/22 0000 06/21 1600 06/21 0800 06/21 0000 Intake Total 866 600 775 765 408 100 Output Total 400 393 382 885 7427 0 Balance 466 207 445 490 -642 100 Intake, IV 806 600 775 675 408 100 Intake, Oral 0 0 Intake, Other 60 60 Intake, Tube 30 Irrigant Number 0 0 Bowel Movements Output, 200 Emesis Output, 0 Gastric Drainage Output, Urine 400 393 330 275 850 Patient 126 lb 126 lb Weight Physical Exam: Alert but completely aphasic Dense right hemiplegia Facial droop on the right Somewhat improved right gaze Current Medications: Current Medications Sig/Deuardo Start time Last Medication Dose Route Stop Time Status Admin Acetaminophen 650 MG Q6 PRN 06/20 1730 AC PO Albuterol Sulfate 3 ML Q4P PRN 06/20 2200 AC 06/21 INH 2137 Ampicillin Sodium/ 3,000 MG Q6H 06/21 1400 AC 06/22 Sulbactam Sodium IV 1410 Sodium Chloride 100 ML Aspirin 81 MG DAILY 06/21 1000 AC 06/22 PO 0907 Atorvastatin Calcium 80 MG 1700 06/20 1700 AC 06/22 PO 1622 Buprenorphine/ 1 TAB BID 06/21 1000 AC 06/22 Naloxone SL 0908 Cyclosporine 1 GTT Q12 06/20 2200 AC 06/22 OPH 0908 Dextrose/Sodium 1,000 ML Q13H 06/21 1300 AC 06/22 Chloride IV 1410 Enoxaparin Sodium 40 MG DAILY 06/21 1000 AC 06/22 SC 0908 Magnesium Sulfate 1 GM ONCE ONE 06/22 0730 DC 06/22 Dextrose/Water 100 ML IV 06/22 1129 0737 Nicotine 14 MG DAILY 06/21 1000 AC 06/22 TOP 0908 Pantoprazole Sodium 40 MG DAILY 06/20 1730 AC 06/22 IV 0908 Potassium Chloride 10 MEQ ONCE ONE 06/22 0730 DC 06/22 IV 06/22 0731 0907 Results Last 24 Hours of Lab Results: Laboratory Tests 06/22 0400 Chemistry Sodium (137 - 145 mmol/L) 139 Potassium (3.5 - 5.1 mmol/L) 3.9 Chloride (98 - 107 mmol/L) 102 Carbon Dioxide (22 - 30 mmol/L) 29 Anion Gap (5 - 16) 8 BUN (7 - 17 mg/dL) 11 Creatinine (0.5 - 1.0 mg/dL) 0.7 Estimated GFR (>60 ml/min) > 60 Glucose (65 - 99 mg/dL) 92 Calcium (8.4 - 10.2 mg/dL) 8.6 Phosphorus (2.5 - 4.5 mg/dL) 5.0 H Magnesium (1.6 - 2.3 mg/dL) 1.7 Total Bilirubin (0.2 - 1.3 mg/dL) 0.9 AST (14 - 36 U/L) 32 ALT (9 - 52 U/L) 40 Albumin (3.5 - 5.0 g/dL) 3.3 L Hematology CBC w Diff NO MAN DIFF REQ WBC (4.8 - 10.8 /CUMM) 13.0 H RBC (4.20 - 5.40 /CUMM) 3.92 L Hgb (12.0 - 16.0 G/DL) 12.7 Hct (37 - 47 %) 36.7 L MCV (81.0 - 99.0 FL) 93.5 MCH (27.0 - 31.0 PG) 32.4 H RDW (11.5 - 14.5 %) 13.4 Plt Count (130 - 400 /CUMM) 171 MPV (7.4 - 10.4 FL) 9.0 Gran % (42.2 - 75.2 %) 62.8 Lymphocytes % (20.5 - 51.1 %) 29.4 Monocytes % (1.7 - 9.3 %) 7.2 Eosinophils % (0 - 5 %) 0.2 Basophils % (0.0 - 2.0 %) 0.4 Absolute Granulocytes (1.4 - 6.5 /CUMM) 8.1 H Absolute Lymphocytes (1.2 - 3.4 /CUMM) 3.8 H Absolute Monocytes (0.10 - 0.60 /CUMM) 0.9 H Absolute Eosinophils (0.0 - 0.7 /CUMM) 0 Absolute Basophils (0.0 - 0.2 /CUMM) 0.1 PUBS MCHC (33.0 - 37.0 G/DL) 34.7 Recent Imaging Studies: MRI brain>>> IMPRESSION: Acute left MCA territorial infarction with mild mass effect. No hemorrhagic conversion or midline shift of structures. Small caliber of the left ICA flow void which is otherwise preserved. Findings are either due to an underlying dissection or possibly a near occlusion related to a proximal hemodynamically significant stenosis. Findings discussed with Dr. Telles at 12:10 PM on 06/22/2016. Echo: CONCLUSIONS Normal size left ventricle. Mild concentric left ventricular hypertrophy. Normal left ventricular ejection fraction visually estimated at > 65%. Normal left ventricular diastolic filling pattern for age. Normal right ventricular size and function. Normal atrial size. Trace mitral regurgitation. Mild tricuspid regurgitation. No evidence of pulmonary hypertension. Tigre Bowens M.D. Carotid Duplex: FINDINGS: 1. On the right: There is a hemodynamically significant stenosis correlating to 50-79% diameter reduction of the proximal internal carotid artery. A moderate amount of hyperechoic plaque is noted at the bifurcation extending into the proximal internal carotid artery. The vertebral artery is patent demonstrating antegrade flow. The right external carotid artery contains mild to moderate disease proximally. The common carotid artery velocity is 104 cm/s. The internal carotid artery velocities are 132 cm/s systolic and 42 cm/s diastolic. The external carotid artery velocity is 183 cm/s. 2. On the left: There is a hemodynamically significant stenosis correlating to 50-79% diameter reduction of the proximal internal carotid artery. A moderate amount of hyperechoic plaque is noted at the bifurcation extending into the proximal internal carotid artery. The vertebral artery is patent demonstrating antegrade flow. The left external carotid artery contains mild to moderate disease proximally. The common carotid artery velocity is 75 cm/s. The internal carotid artery velocities are 269 cm/s systolic and 58 cm/s diastolic. The external carotid artery velocity is 173 cm/s. IMPRESSION: Bilateral hemodynamically significant stenoses consistent with a 50-79% diameter reduction involving both the proximal left and right internal carotid arteries. The degree of stenosis is greater in the left internal carotid artery compared to the right. Further evaluation can be obtained with CTA of the neck, if clinically indicated. Assessment/Plan Assessment: This is a 56-year-old woman who came in with a new left MCA territory infarct. Today this was verified by MRI were there is a large area of diffusion positivity within the frontal and temporal lobes anteriorly and around the rolandic sulcus counting for her deficits. Further it seems that the left ICA is almost completely occluded. As yet not clear whether this is due to a thrombotic event with secondary arterial embolism versus hypoperfusion, or due to dissection. Plan: 1. Pain and MRA neck with and without contrast. and MRA of brain without. 2. C/w ASA 81mg and Atorvastatin 80mg. 3. Telemetry. 4. PT/OT and speech. YC
--- NOTE | 2016-06-22 17:14 | NUR ---
@1600-PT ALERT AND ORIENTED, COOP. VSS. R FACIAL DROOP AND R SIDED HEMIPLEGIA CONT. NEURO AT BEDSIDE AND UPDATING PT AND FAMILY ON POC. PLAN FOR MRA OF HEAD AND NECK TOMORROW. PLAN TO START PT ON TUBE FEED TONIGHT. CONT TO MONITOR,CALL JORDYN MAYES.
--- NOTE | 2016-06-22 18:18 | Cons- Vascular Surgery ---
General Information and HPI Consulting Request Date of Consult: 06/22/16 Requested By: PRECIOUS EVANGELISTA MD Reason for Consult: Bilateral carotid stenosis and recent stroke Source of Information: family, old records Exam Limitations: unable to give history History of Present Illness: 56 year old woman who has a significant smoking history/ HTN who woke up yesterday morning and was noted to have developed right side weakness and aphasia. This has progressed and she is being treated by the ICU staff. Recent ultrasound demonstrates possible bilateral carotid stenosis. Vascular surgery is being consulted to aid in management. Allergies/Medications Allergies: Coded Allergies: azithromycin (TREMORS 06/20/16) erythromycin base (TREMORS 06/20/16) Home Med List: Buprenorphine HCl/Naloxone HCl (Suboxone 8 MG-2 MG Sl Film) 8 MG-2 MG FILM 1 STR SL BID MENTAL HEALTH (Reported) Cholecalciferol (Vitamin D3) (Vitamin D) 2,000 UNIT CAPSULE 1 CAP PO DAILY SUPPLEMENT (Reported) Cyclosporine (Restasis) 0.05 % DROPERETTE 1 GTT OPH BID BOTH EYES (Reported) Fluoxetine HCl 20 MG CAPSULE 1 CAP PO DAILY MENTAL HEALTH (Reported) Olanzapine 5 MG TABLET 1 TAB PO QPM MENTAL HEALTH (Reported) Current Medications: Current Medications Sig/Eduardo Start time Last Medication Dose Route Stop Time Status Admin Acetaminophen 650 MG Q6 PRN 06/20 1730 AC PO Albuterol Sulfate 3 ML Q4P PRN 06/20 2200 AC 06/21 INH 2137 Ampicillin Sodium/ 3,000 MG Q6H 06/21 1400 AC 06/22 Sulbactam Sodium IV 1410 Sodium Chloride 100 ML Aspirin 81 MG DAILY 06/21 1000 AC 06/22 PO 0907 Atorvastatin Calcium 80 MG 1700 06/20 1700 AC 06/22 PO 1622 Buprenorphine/ 1 TAB BID 06/21 1000 AC 06/22 Naloxone SL 0908 Cyclosporine 1 GTT Q12 06/20 2200 AC 06/22 OPH 0908 Dextrose/Sodium 1,000 ML Q13H 06/21 1300 AC 06/22 Chloride IV 1410 Enoxaparin Sodium 40 MG DAILY 06/21 1000 AC 06/22 SC 0908 Magnesium Sulfate 1 GM ONCE ONE 06/22 0730 DC 06/22 Dextrose/Water 100 ML IV 06/22 1129 0737 Nicotine 14 MG DAILY 06/21 1000 AC 06/22 TOP 0908 Pantoprazole Sodium 40 MG DAILY 06/20 1730 AC 06/22 IV 0908 Potassium Chloride 10 MEQ ONCE ONE 06/22 0730 DC 06/22 IV 06/22 0731 0907 Past History Medical History Blood Transfusion Hx: No Neurological: NONE EENT: NONE Cardiovascular: NONE Respiratory: NONE Gastrointestinal: NONE Hepatic: NONE Renal: NONE Musculoskeletal: NONE Psychiatric: anxiety, bipolar disease, depression, opioid dependence Endocrine: NONE Blood Disorders: NONE Cancer(s): NONE 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 Home Services at Home: None Smoking Status: Current Everyday Smoker ETOH Use: denies use Illicit Drug Use: clean for 2 years Functional Ability ADLs Independent: dressing, eating, toileting, bathing. Ambulation: independent Review of Systems Review of Systems: Patient is noncommunicative and an appropriate review of systems cannot be ascertained Exam & Diagnostic Data Vital Signs and I&O Vital Signs Date Time Temp Pulse Resp B/P Pulse O2 O2 Flow FiO2 Ox Delivery Rate 06/22 1600 98.3 76 18 114/70 94 Nasal 3.0L Cannula 06/22 1600 94 Nasal 3.0L Cannula 06/22 1400 Nasal 3.0L Cannula 06/22 1200 93 Nasal 3.0L Cannula 06/22 0849 94 Nasal 3.0L Cannula 06/22 0800 97.6 77 18 110/60 93 Nasal 3.0L Cannula 06/22 0800 93 Nasal 3.0L Cannula 06/22 0400 93 Nasal 3.0L Cannula 06/22 0000 97.3 92 20 124/60 92 Nasal 3.0L Cannula 06/22 0000 92 Nasal 3.0L Cannula 06/21 2138 93 Nasal 3.0L Cannula 06/21 2000 93 Nasal 5.0L Cannula Intake & Output 06/22 1600 06/22 0800 06/22 0000 06/21 1600 06/21 0800 06/21 0000 Intake Total 866 600 775 765 408 100 Output Total 400 393 686 553 9040 0 Balance 466 207 445 490 -642 100 Intake, IV 806 600 775 675 408 100 Intake, Oral 0 0 Intake, Other 60 60 Intake, Tube 30 Irrigant Number 0 0 Bowel Movements Output, 200 Emesis Output, 0 Gastric Drainage Output, Urine 400 393 330 275 850 Patient 126 lb 126 lb Weight Physical Exam: Patient is afebrile and vital signs are stable. She is unable to move her right side. Her bilateral lower and upper extremities are well-perfused. Physical Exam General Appearance: well developed/nourished, no apparent distress, alert, awake Neurologic/Psych: aphasia, motor weakness Last 24 Hours of Labs: Laboratory Tests 06/22 0400 Chemistry Sodium (137 - 145 mmol/L) 139 Potassium (3.5 - 5.1 mmol/L) 3.9 Chloride (98 - 107 mmol/L) 102 Carbon Dioxide (22 - 30 mmol/L) 29 Anion Gap (5 - 16) 8 BUN (7 - 17 mg/dL) 11 Creatinine (0.5 - 1.0 mg/dL) 0.7 Estimated GFR (>60 ml/min) > 60 Glucose (65 - 99 mg/dL) 92 Calcium (8.4 - 10.2 mg/dL) 8.6 Phosphorus (2.5 - 4.5 mg/dL) 5.0 H Magnesium (1.6 - 2.3 mg/dL) 1.7 Total Bilirubin (0.2 - 1.3 mg/dL) 0.9 AST (14 - 36 U/L) 32 ALT (9 - 52 U/L) 40 Albumin (3.5 - 5.0 g/dL) 3.3 L Hematology CBC w Diff NO MAN DIFF REQ WBC (4.8 - 10.8 /CUMM) 13.0 H RBC (4.20 - 5.40 /CUMM) 3.92 L Hgb (12.0 - 16.0 G/DL) 12.7 Hct (37 - 47 %) 36.7 L MCV (81.0 - 99.0 FL) 93.5 MCH (27.0 - 31.0 PG) 32.4 H RDW (11.5 - 14.5 %) 13.4 Plt Count (130 - 400 /CUMM) 171 MPV (7.4 - 10.4 FL) 9.0 Gran % (42.2 - 75.2 %) 62.8 Lymphocytes % (20.5 - 51.1 %) 29.4 Monocytes % (1.7 - 9.3 %) 7.2 Eosinophils % (0 - 5 %) 0.2 Basophils % (0.0 - 2.0 %) 0.4 Absolute Granulocytes (1.4 - 6.5 /CUMM) 8.1 H Absolute Lymphocytes (1.2 - 3.4 /CUMM) 3.8 H Absolute Monocytes (0.10 - 0.60 /CUMM) 0.9 H Absolute Eosinophils (0.0 - 0.7 /CUMM) 0 Absolute Basophils (0.0 - 0.2 /CUMM) 0.1 PUBS MCHC (33.0 - 37.0 G/DL) 34.7 Imaging Results: Ultrasound demonstrates bilateral carotid stenosis 50-79% Assessment/Plan Assessment/Plan 56-year-old female with a stroke and bilateral carotid stenosis 1.) Recommend CTA of the neck to discern degree of disease 2.) Antiplatelet or anticoagulation as deemed appropriate by neurology/medicine 3.) Will follow CTA results to determine possibility of endarterectomy although this will need to be weighed against her significant deficits and neurologic outcome 4.) Continue care as per ICU/medicalteam Consult Acknowledgment - Thank you for your consult request.
--- NOTE | 2016-06-22 18:23 | NUR ---
@1830-PT TRANSPORTED TO CT FOR CTA ANGIO OF NECK. SOFTWARE DEVELOPMENT TEST ENGINEER TRAVELLED WITH PT. PT TO START ON TF UPON RETURN TO UNIT
--- NOTE | 2016-06-22 18:36 | Cons- Cardiology ---
General Information and HPI Consulting Request Date of Consult: 06/22/16 Requested By: PRECIOUS EVANGELISTA MD Reason for Consult: Stroke with assessment for cardioembolic source. Source of Information: family, old records Exam Limitations: unable to give history History of Present Illness: Mrs. Shara Polanco is a 56-year-old female with a history of long- standing tobacco use (2 packs per day), previous IV substance abuse, illegal drug use free for 2 years on Suboxone (buprenorphine-naloxone), anxiety/ depression/bipolar disorder for which she is on olanzapine and fluoxetine who presented via ambulance with a complaint of right-sided weakness that was ultimately found to be secondary to an acute left MCA distribution stroke. According to family members there is no history of coronary, valvular, dysrhythmic/conduction disease or cardiomyopathy. Patient has also had no recent complaints of chest discomfort, palpitations, shortness of breath, orthopnea, paroxysmal nocturnal dyspnea, dry cough, lower extremity edema, syncope, near syncope, lightheadedness, dizziness, claudication , or any previous neurological symptoms. Allergies/Medications Allergies: Coded Allergies: azithromycin (TREMORS 06/20/16) erythromycin base (TREMORS 06/20/16) Home Med List: Buprenorphine HCl/Naloxone HCl (Suboxone 8 MG-2 MG Sl Film) 8 MG-2 MG FILM 1 STR SL BID MENTAL HEALTH (Reported) Cholecalciferol (Vitamin D3) (Vitamin D) 2,000 UNIT CAPSULE 1 CAP PO DAILY SUPPLEMENT (Reported) Cyclosporine (Restasis) 0.05 % DROPERETTE 1 GTT OPH BID BOTH EYES (Reported) Fluoxetine HCl 20 MG CAPSULE 1 CAP PO DAILY MENTAL HEALTH (Reported) Olanzapine 5 MG TABLET 1 TAB PO QPM MENTAL HEALTH (Reported) Review of Systems Review of Systems: Interval, as the patient cannot give any history. 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 Home Services at Home: None Smoking Status: Current Everyday Smoker ETOH Use: denies use Illicit Drug Use: clean for 2 years Functional Ability ADLs Independent: dressing, eating, toileting, bathing. Ambulation: independent Exam & Diagnostic Data Vital Signs and I&O Vital Signs Date Time Temp Pulse Resp B/P Pulse O2 O2 Flow FiO2 Ox Delivery Rate 06/22 1600 98.3 76 18 114/70 94 Nasal 3.0L Cannula 06/22 1600 94 Nasal 3.0L Cannula 06/22 1400 Nasal 3.0L Cannula 06/22 1200 93 Nasal 3.0L Cannula 06/22 0849 94 Nasal 3.0L Cannula 06/22 0800 97.6 77 18 110/60 93 Nasal 3.0L Cannula 06/22 0800 93 Nasal 3.0L Cannula 06/22 0400 93 Nasal 3.0L Cannula 06/22 0000 97.3 92 20 124/60 92 Nasal 3.0L Cannula 06/22 0000 92 Nasal 3.0L Cannula 06/21 2138 93 Nasal 3.0L Cannula 06/21 2000 93 Nasal 5.0L Cannula Intake & Output 06/22 1600 06/22 0800 06/22 0000 06/21 1600 06/21 0800 06/21 0000 Intake Total 866 600 775 765 408 100 Output Total 400 393 572 060 3460 0 Balance 466 207 445 490 -642 100 Intake, IV 806 600 775 675 408 100 Intake, Oral 0 0 Intake, Other 60 60 Intake, Tube 30 Irrigant Number 0 0 Bowel Movements Output, 200 Emesis Output, 0 Gastric Drainage Output, Urine 400 393 330 275 850 Patient 126 lb 126 lb Weight Physical Exam: Well-developed, well-nourished middle-aged female who is a aphasic, alert, and appears older than her stated age. Vital signs: See above. HEENT: Normocephalic, atraumatic, slightly dry mucous membranes. Neck: No JVD, no obvious bruits, although difficult to hear secondary to rhonchi. Lungs: Decreased breath sounds bilaterally with scattered rhonchi. Heart: S1, S2 with no obvious murmur, gallop, or rub appreciated, although difficult to hear secondary to rhonchi. PMI fifth ICS at MCL. Abdomen: Soft, nontender, positive bowel sounds. Extremities: No edema. Neurological: Right facial droop and right dense hemiplegia. Diagnostic Data EKG Results (06/20/2016) sinus rhythm, abnormal precordial R wave progression leads V1-V2 consider ACS GA versus lead placement, and minor nondiagnostic T-wave abnormalities. No previous tracing available for comparison. CXR Results (06/22/2016) Increasing hazy right basilar opacity could represent atelectasis or pneumonia. Aspiration also a consideration. Other Results MRI head (06/22/2016) Acute left MCA territorial infarction with mild mass effect. No hemorrhagic conversion or midline shift of structures. Small caliber of the left ICA flow void which is otherwise preserved. Findings are either due to an underlying dissection or possibly a near occlusion related to a proximal hemodynamically significant stenosis. Carotid ultrasound (06/21/2016) Bilateral hemodynamically significant stenoses consistent with a 50-79% diameter reduction involving both the proximal left and right internal carotid arteries. The degree of stenosis is greater in the left internal carotid artery compared to the right. Further evaluation can be obtained with CTA of the neck, if clinically indicated. Echocardiogram (06/21/2016) ormal size left ventricle. Mild concentric left ventricular hypertrophy. Normal left ventricular ejection fraction visually estimated at >65%. Normal left ventricular diastolic filling pattern for age. Normal right ventricular size and function. Normal atrial size. Trace mitral regurgitation. Mild tricuspid regurgitation. No evidence of pulmonary hypertension. Assessment/Plan Assessment/Plan Stroke syndrome in this middle-aged female with a long-standing history of tobacco use, dyslipidemia, carotid artery disease, and no echocardiographic findings to suggest a cardioembolic source, however, there remains the possibility that she may be having paroxysms of atrial fibrillation that could've been responsible for her presentation. More likely, however, is the possibility that her vascular disease is the culprit for her presentation. Obtain MRA or CTA of neck. Agree with continued cardiac monitoring to help exclude paroxysmal atrial fibrillation, antiplatelet therapy, statin therapy, as well as, physical, speech , occupational therapy, and counseling for smoking cessation. Note that her blood pressure has been excellent and need to avoid hypotension. Continue with DVT prophylaxis. Further recommendations will follow, Thank you. Consult Acknowledgment - Thank you for your consult request.
--- NOTE | 2016-06-22 18:58 | NUR ---
@[id number]-PT RETURNED FROM CTA, ASSISTED TO COMF POSITION IN BED. TF JEVITY 1.2 STARTED AT 20ML/HR.
--- NOTE | 2016-06-22 21:17 | CT SCAN REPORT ---
EXAMINATION: CT ANGIOGRAM NECK CLINICAL INFORMATION: 56-year-old woman with left MCA stroke. COMPARISON: 06/22/2016 brain MRI, 06/21/2016 carotid ultrasound TECHNIQUE: Test bolus sequences followed by administration of 95 mL of Optiray 320 intravenous contrast. Helical imaging was performed in the axial plane of the neck. The data was processed at the manufacturing engineering technologist workstation for generation of MIP sequences. Three-dimensional volume rendered reformatted images were also generated at an offline 3-D workstation. DLP: 971 mGy-cm. FINDINGS: Cervical soft tissues and lung apices: There is mild to moderate centrilobular and paraseptal emphysema. There is nodular parenchymal scarring at the lung apices, right more so than left. A nasogastric tube is visible. The patient's known left MCA infarct is partially imaged. Chest CTA: There is a classic 3 vessel configuration of the aortic arch. Proximal arch vessels are non-stenotic. The left vertebral artery is dominant. No significant ostial stenosis is visualized on either side. Neck CTA: Just beyond the right vertebral ostium, there is eccentric lipid density plaque in the right vertebral that extends over a 1 cm segment and leads to about 75% luminal narrowing. The vertebral arteries are otherwise widely patent in the neck. Both common carotid arteries are normal in course and caliber. There is calcified plaque at the right carotid bifurcation that does not lead to significant stenosis. There is mixed density plaque at the left carotid bifurcation that leads to "near occlusion ". The more distal left ICA is diminished in caliber in comparison to both the ipsilateral ECA and contralateral ICA. In addition, at the genu of the left cavernous carotid artery, there is focal eccentric lipid density plaque that leads to a second high-grade stenosis with at least 75% luminal narrowing. There is at least partially occlusive intraluminal clot within the left M1 segment with attenuation of more distal left MCA branches. IMPRESSION: 1. Mixed density atherosclerotic plaque at the left carotid bifurcation leads to a "near occlusion ". There is a second high-grade stenosis at the genu of the left cavernous carotid artery due to eccentric lipid density plaque and there is also acute at least partial occlusion of the left MCA. 2. Eccentric lipid density plaque just beyond the origin of the nondominant right vertebral artery leads to 75% stenosis.
[2016-06-23] VITALS: BP 110/60
[2016-06-23 05:06] LABS: ABSOLUTE BASOPHIL COUNT 0 /CUMM (0.0-0.2); ABSOLUTE EOSINOPHIL COUNT 0.1 /CUMM (0.0-0.7); ABSOLUTE GRANULOCYTE CT 4.6 /CUMM (1.4-6.5); ABSOLUTE LYMPH COUNT 2.3 /CUMM (1.2-3.4); ABSOLUTE MONOCYTE COUNT 0.7 /CUMM (0.10-0.60); BASOPHIL % 0.2 % (0.0-2.0); EOSINOPHIL % 1.1 % (0-5); GRANULOCYTE % 60.2 % (42.2-75.2); HEMATOCRIT 36.1 % (37-47); MEAN CORPUSCULAR HGB 31.9 PG (27.0-31.0); MEAN CORPUSCULAR HGB CONC 33.7 G/DL (33.0-37.0); MEAN CORPUSCULAR VOLUME 94.6 FL (81.0-99.0); PLATELET COUNT 159 /CUMM (130-400); RBC DISTRIBUTION WIDTH 13.5 % (11.5-14.5); RED BLOOD CELL CT 3.82 /CUMM (4.20-5.40); WHITE BLOOD CELL COUNT 7.7 /CUMM (4.8-10.8)
--- NOTE | 2016-06-23 06:31 | PN- Resident CRCU ---
MARIA E SUN,JAQUELINE 06/23/16 0630: Subjective HPI/CRCU Issues: Patient is a 56 YO F with PMH signficant for opiate abuse (on suboxone from 2 yrs), anxiety, depression, bipolar disorder came to ER with weakness on right upper and lower extremity with aphasia. She is able to say her name by the time she came to ER eventually became severely dyarthric. she failed bedside swallow evaluation in the ER. CT scan in the ER dosent reveal any acute pathology. She is admitted to ICU for neurochecks every 1 hr. Current CRCU issues 1. Left MCA territorial infarction with mild mass effect 2. Left ICA Stenosis 3. Aspiration pneumonia 24 Hour Events: I saw and examined the patient today morning. She is doing better, lying comfortably on her bed. Objective Vital Signs & I&O Last 8 Hrs of Vitals and I&O: VS stable overnight Afebrile, HR 77-80 in sinus rhythm, BP 110/60mmHg on 3L NC D51/2 NS @75ml/hr I/O - 2778/1848 with a net net positive balance of 1L On tube feeds Jevity 1.2 and D51/2NS @75ml/hr with blood sugars in 95-105. On a Albright Catheter. Exam General Appearance: well developed/nourished, no apparent distress, alert, awake , comfortable Head: atraumatic, normal appearance Ears, Nose, Throat: normal pharynx, normal ENT inspection, hearing grossly normal Neck: normal inspection, supple Respiratory: chest non-tender, rhonchi bilaterally Cardiovascular: regular rate/rhythm, murmur, normal peripheral pulses Gastrointestinal: normal bowel sounds, soft, non-tender Extremities: normal inspection, normal capillary refill Cranial Nerves: normal hearing, PERRL, Global aphasia Skin: intact IV Drips IV Drips: D51/2 NS @ 75ml/hr Nutrition Nutrition: tube feeding Current Medications: Current Medications Sig/Eduardo Start time Last Medication Dose Route Stop Time Status Admin Acetaminophen 650 MG Q6 PRN 06/20 1730 AC PO Albuterol Sulfate 3 ML Q4P PRN 06/20 2200 AC 06/22 INH 2148 Ampicillin Sodium/ 3,000 MG Q6H 06/21 1400 AC 06/23 Sulbactam Sodium IV 1010 Sodium Chloride 100 ML Aspirin 81 MG DAILY 06/21 1000 AC 06/23 PO 1010 Atorvastatin Calcium 80 MG 1700 06/20 1700 AC 06/22 PO 1622 Buprenorphine/ 1 TAB BID 06/21 1000 AC 06/23 Naloxone SL 1028 Cyclosporine 1 GTT Q12 06/20 2200 AC 06/23 OPH 1011 Dextrose/Sodium 1,000 ML Q13H 06/21 1300 AC 06/23 Chloride IV 0325 Enoxaparin Sodium 40 MG DAILY 06/21 1000 AC 06/23 SC 1010 Magnesium Sulfate 1 GM Q2H 06/23 0700 DC 06/23 Dextrose/Water 100 ML IV 06/23 1059 1009 Nicotine 14 MG DAILY 06/21 1000 AC 06/23 TOP 1010 Pantoprazole Sodium 40 MG DAILY 06/20 1730 AC 06/23 IV 1009 Potassium Chloride 10 MEQ ONCE ONE 06/23 0700 DC 06/23 IV 06/23 0701 1009 Impression/Plan Impression/Problem List Impression: Patient is a 56 YO F with PMH signficant for opiate abuse (on suboxone from 2 yrs), anxiety, depression, bipolar disorder came to ER with weakness on right upper and lower extremity with aphasia. She is able to say her name by the time she came to ER eventually became severely dyarthric. she failed bedside swallow evaluation in the ER. CT scan in the ER dosent reveal any acute pathology. MRI today is signfiicant of Left MCA with mass effect and left carotid stenosis significant enough to effect the circualtion. She is admitted to ICU for neurochecks every 1 hr. Currently she is stable. Carotid doppler demonstrated left ICA near complete occlusion. Followed by my CTA neck shows Mixed density atherosclerotic plaque at the left carotid bifurcation leads to a "near occlusion ". There is a second high-grade stenosis at the genu of the left cavernous carotid artery due to eccentric lipid density plaque and there is also acute at least partial occlusion of the left MCA. Eccentric lipid density plaque just beyond the origin of the nondominant right vertebral artery leads to 75% stenosis. MRA of the head shows there is a near occlusive thrombus within the proximal M1 segment of the left middle cerebral artery. There is also a moderate focal stenosis at the origin of the right middle cerebral artery. PLAN: Respiratory: Aspiration pneumonia * Cough with whitish phelgm production * Satuarting in 94% with a 3L NC. * CXR shows right lower lobe infitrate today with a white count of 13.5 yesterday * Unasyn 3gm Q6 * White count improved and she remained afebrile overnight indicating response to antibiotics. Infectious Diseases: On unasyn 3g Q6 for aspiration pneumonia as above. Cardiovascular: Cardio consult is placed. ECHO shows EF of >65%. Hematology: Elevated white count of around 13.5 yesterday. Today back to 7.7. Metabolic: Hypokalemia and hypomagnesemia * K of 3.9 and Mag of 1.6 * Kcl of 10mEq IV, MgSo4 of 2gm is given * will monitor daily and replete as needed. Alimentary: Failed swallow evaluation twice. Started on tube feeds from yesterday, but her Blood sugars are low in 95-105. currently on D51/2NS @75ml/hr Neurological: Left MCA stroke with Left ICA stenosis: * Complete right sided CVA with evident infarction on MRI with mass effect. * NG tube in place for medications. * Aspirin 300mg OR given in ER and placed on Aspirin 81mg, atorvastatin 80mg via NG tube * Failed bedside swallow evaluation, didnt perform formal swallow evaluation today as per the clinical condition * Currently NPO with D51/2 NS @ 75ml/hr and tube feeds. * ECHO shows EF >65% and carotid ultrasound shows hemodynamically significant stenosis. * CT angio shows stenotic lesions near MCA, ICA (left), vertebral artery. * Vascular surgery want to follow up as an outpatient as they are not going to do any intervention now. * Neurology and neurosurgery on board. DVT/Prophylaxis: SC lovenox Code Status: Full Code Problem List: 1. Aspiration pneumonia 2. CVA (cerebral vascular accident) Pain Ratin Tomorrow's Labs & Rationales: ICU bundle CBC Plan DVT/Prophylaxis: SC lovenox Code Status: Full Code JAD MEYER MD 06/23/16 1025: Attending MD Review Statement Attending Sign Off Attending Cosign Statement: I have: examined this patient, reviewed avalbl EMR data, personally reviewd images, discussd w/resident/PA/BONE COOKING OPERATOR, discussed mgmt plan w/shirin, discussed mgmt plan w/CM, discussed mgmt plan w/pt, agreed w/resident/PA/BONE COOKING OPERATOR, amended to note. Other Findings: I, Jad Meyer M.D. have examined this patient, reviewed available EMR data, personally reviewed images, discussed with resident/PA/BONE COOKING OPERATOR, discussed management plan with housestaff and nursing staff, discussed managment plan all of healthcare providers, discussed management plan with patient and/or family, agreed with resident/PA/BONE COOKING OPERATOR. The past history and parts of the chart have been autopopulated. Impression 56 year old woman with a CVA - consistent with left mca, awaiting MRI for confirmation, also with history of smoking and likely aspiration pneumonia, with an episode of desaturation requiring as high as 5L, currently 3LNC. Plan Respiratory/ID -cxr tomorrow am -cont unasyn course -trc/nebs -sputum cx CVS -hemodynamically significant stenosis of carotids, vascular surgery consultation appreciated -cardiology evaluation appreciated Heme -aspirin per neurology -monitor cbc, coags Metabolic -electrolyte repletion -monitor urine output Alimentary -tube feeds, cannot swallow, NGT Neuro -neurology follow up -aspirin -statin/lipitor DVT prophylaxis with Lovenox TTS 35 min
[2016-06-23 08:00] VITALS: BP 114/70
--- NOTE | 2016-06-23 09:47 | MRI REPORT ---
EXAMINATION: MRA BRAIN CLINICAL INFORMATION: Left middle cerebral artery stroke. COMPARISON: Brain MRI 06/14/2016. TECHNIQUE: A noncontrast three-dimensional [id number]-ft-obutru acquisition of the intracranial vessels was performed. Data was reformatted into multiplanar images at the acquisition workstation. FINDINGS: There is truncation of the flow related enhancement representing a near occlusive thrombus within the proximal M1 segment of the left middle cerebral artery. There is also a moderate focal stenosis at the origin of the right middle cerebral artery. This finding is best illustrated on the MIP reconstruction, image 7 of 20 series 3. There is mild irregular narrowing within the cavernous segment of the left internal carotid artery. The intracranial right internal carotid artery is normal. The intradural vertebral artery segments and basilar artery are normal. Posterior cerebral artery complexes are normal. IMPRESSION: There is a near occlusive thrombus within the proximal M1 segment of the left middle cerebral artery. There is also a moderate focal stenosis at the origin of the right middle cerebral artery.
--- NOTE | 2016-06-23 12:03 | NUR ---
PT IS DROWSY, WAKES EASILY, HAS RIGHT SIDED NEGLECT AND RIGHT SIDED FACIAL DROOP. SHE HAS A WEAK, AT TIMES INEFFECTIVE COUGH AND REQUIRES ORAL SUCTIONING. NGT IS AUSCULTATED IN STOMACH AND TF IS INFUSING PER PROTOCOL. SHE WAS TRANSFERRED TO MRI FOR AN MRA AND WAS MONITORED BY NURSING. SHE REMAINS APAHSIC AND DOES APPEAR TO UNDERSTAND CONVERSATION AND SHE DOES FOLLOW SOME COMMANDS.
--- NOTE | 2016-06-23 13:38 | PN- Vascular Surgery ---
Subjective Subjective: Patient remains in critical care unit for CVA. No new changes in patient status. Objective Vital Signs and I&Os Vital Signs Date Time Temp Pulse Resp B/P Pulse O2 O2 Flow FiO2 Ox Delivery Rate 06/23 08 95 Nasal 3.5L Cannula 06/23 0800 98.5 76 18 114/70 94 Nasal 3.5L Cannula 06/23 0400 94 Nasal 3.0L Cannula 06/23 0000 98.1 82 18 110/60 92 Nasal 3.0L Cannula 06/23 0000 92 Nasal 3.0L Cannula 06/22 220 93 Nasal 3.0L Cannula 06/22 2000 95 Nasal 3.0L Cannula 06/22 1600 98.3 76 18 114/70 94 Nasal 3.0L Cannula 06/22 1600 94 Nasal 3.0L Cannula 06/22 1400 Nasal 3.0L Cannula Intake & Output 06/23 1600 06/23 0800 06/23 0000 06/22 1600 06/22 0800 06/22 0000 Intake Total 938 938 866 600 775 Output Total 280 550 400 393 330 Balance 658 388 466 207 445 Intake, IV 654 684 806 600 775 Intake, Oral 0 0 0 Intake, Other 60 Intake, Tube 184 69 Feeding Intake, Tube 100 185 Irrigant Number 0 0 0 Bowel Movements Output, Urine 280 550 400 393 330 Patient 126 lb Weight Physical Exam: AVSS. Unable to move her right side. Her bilateral lower and upper extremities are well-perfused. Current Medications: Current Medications Sig/Eduardo Start time Last Medication Dose Route Stop Time Status Admin Acetaminophen 650 MG Q6 PRN 06/20 1730 AC PO Albuterol Sulfate 3 ML Q4P PRN 06/20 2200 AC 06/22 INH 2148 Ampicillin Sodium/ 3,000 MG Q6H 06/21 1400 AC 06/23 Sulbactam Sodium IV 1010 Sodium Chloride 100 ML Aspirin 81 MG DAILY 06/21 1000 AC 06/23 PO 1010 Atorvastatin Calcium 80 MG 1700 06/20 1700 AC 06/22 PO 1622 Buprenorphine/ 1 TAB BID 06/21 1000 AC 06/23 Naloxone SL 1028 Cyclosporine 1 GTT Q12 06/200 AC 06/23 OPH 1011 Dextrose/Sodium 1,000 ML Q13H 06/21 1300 AC 06/23 Chloride IV 0325 Enoxaparin Sodium 40 MG DAILY 06/21 1000 AC 06/23 SC 1010 Magnesium Sulfate 1 GM Q2H 06/23 0700 DC 06/23 Dextrose/Water 100 ML IV 06/23 1059 1009 Nicotine 14 MG DAILY 06/21 1000 AC 06/23 TOP 1010 Pantoprazole Sodium 40 MG DAILY 06/20 1730 AC 06/23 IV 1009 Potassium Chloride 10 MEQ ONCE ONE 06/23 0700 DC 06/23 IV 06/23 0701 1009 Results Last 48 Hours of Labs: Laboratory Tests 06/23 06/22 0410 0400 Chemistry Sodium (137 - 145 mmol/L) 139 139 Potassium (3.5 - 5.1 mmol/L) 3.9 3.9 Chloride (98 - 107 mmol/L) 102 102 Carbon Dioxide (22 - 30 mmol/L) Anion Gap (5 - 16) 7 8 BUN (7 - 17 mg/dL) 11 11 Creatinine (0.5 - 1.0 mg/dL) 0.6 0.7 Estimated GFR (>60 ml/min) > 60 > 60 Glucose (65 - 99 mg/dL) 95 92 Calcium (8.4 - 10.2 mg/dL) 8.5 8.6 Phosphorus (2.5 - 4.5 mg/dL) 4.5 5.0 H Magnesium (1.6 - 2.3 mg/dL) 1.6 1.7 Total Bilirubin (0.2 - 1.3 mg/dL) 0.6 0.9 AST (14 - 36 U/L) 32 32 ALT (9 - 52 U/L) 36 40 Albumin (3.5 - 5.0 g/dL) 3.0 L 3.3 L Hematology CBC w Diff NO MAN DIFF REQ NO MAN DIFF REQ WBC (4.8 - 10.8 /CUMM) 7.7 13.0 H RBC (4.20 - 5.40 /CUMM) 3.82 L 3.92 L Hgb (12.0 - 16.0 G/DL) 12.2 12.7 Hct (37 - 47 %) 36.1 L 36.7 L MCV (81.0 - 99.0 FL) 94.6 93.5 MCH (27.0 - 31.0 PG) 31.9 H 32.4 H RDW (11.5 - 14.5 %) 13.5 13.4 Plt Count (130 - 400 /CUMM) 159 171 MPV (7.4 - 10.4 FL) 9.0 9.0 Gran % (42.2 - 75.2 %) 60.2 62.8 Lymphocytes % (20.5 - 51.1 %) 29.4 29.4 Monocytes % (1.7 - 9.3 %) 9.1 7.2 Eosinophils % (0 - 5 %) 1.1 0.2 Basophils % (0.0 - 2.0 %) 0.2 0.4 Absolute Granulocytes (1.4 - 6.5 /CUMM) 4.6 8.1 H Absolute Lymphocytes (1.2 - 3.4 /CUMM) 2.3 3.8 H Absolute Monocytes (0.10 - 0.60 /CUMM) 0.7 H 0.9 H Absolute Eosinophils (0.0 - 0.7 /CUMM) 0.1 0 Absolute Basophils (0.0 - 0.2 /CUMM) 0 0.1 PUBS MCHC (33.0 - 37.0 G/DL) 33.7 34.7 Recent Imaging Studies: EXAM TYPE: MRI - MRA-HEAD EXAMINATION: MRA BRAIN CLINICAL INFORMATION: Left middle cerebral artery stroke. COMPARISON: Brain MRI 06/14/2016. TECHNIQUE: A noncontrast three-dimensional [id number] acquisition of the intracranial vessels was performed. Data was reformatted into multiplanar images at the acquisition workstation. FINDINGS: There is truncation of the flow related enhancement representing a near occlusive thrombus within the proximal M1 segment of the left middle cerebral artery. There is also a moderate focal stenosis at the origin of the right middle cerebral artery. This finding is best illustrated on the MIP reconstruction, image 7 of 20 series 3. There is mild irregular narrowing within the cavernous segment of the left internal carotid artery. The intracranial right internal carotid artery is normal. The intradural vertebral artery segments and basilar artery are normal. Posterior cerebral artery complexes are normal. IMPRESSION: There is a near occlusive thrombus within the proximal M1 segment of the left middle cerebral artery. There is also a moderate focal stenosis at the origin of the right middle cerebral artery. Assessment/Plan Assessment/Plan 56yo F with CVA, b/l carotid stenosis, L MCA occlusion. MRI/CTA reviewed and recommend continuing conservative management. No vascular intervention at this time due to occluded segment of L MCA. Patient to follow- up outpatient.
[2016-06-23 16:00] VITALS: BP 120/70
--- NOTE | 2016-06-23 20:00 | PN- Cardiology ---
Subjective Subjective: Appears more alert, although remains unable to speak or move right side. Objective Vital Signs and I&Os Vital Signs Date Time Temp Pulse Resp B/P Pulse O2 O2 Flow FiO2 Ox Delivery Rate 06/23 1600 98.0 80 18 120/70 94 Nasal 3.5L Cannula 06/23 1200 95 Nasal 3.5L Cannula 06/23 0800 95 Nasal 3.5L Cannula 06/23 0800 98.5 76 18 114/70 94 Nasal 3.5L Cannula 06/23 0400 94 Nasal 3.0L Cannula 06/23 0000 98.1 82 18 110/60 92 Nasal 3.0L Cannula 06/23 0000 92 Nasal 3.0L Cannula 06/22 220 93 Nasal 3.0L Cannula 06/22 2000 95 Nasal 3.0L Cannula Intake & Output 06/23 1600 06/23 0800 06/23 0000 06/22 1600 06/22 0800 06/22 0000 Intake Total 938 938 866 600 775 Output Total 280 550 400 393 330 Balance 658 388 466 207 445 Intake, IV 654 684 806 600 775 Intake, Oral 0 0 0 Intake, Other 60 Intake, Tube 184 69 Feeding Intake, Tube 100 185 Irrigant Number 0 0 0 Bowel Movements Output, Urine 280 550 400 393 330 Patient 126 lb Weight Physical Exam: Lungs: Decreased breath sounds bilaterally with scattered rhonchi. Heart: S1, S2 with no obvious murmur, gallop, or rub appreciated, although difficult to hear secondary to rhonchi. PMI fifth ICS at [facility]. Abdomen: Soft, nontender, positive bowel sounds. Extremities: No edema. Neurological: Right facial droop and right dense hemiplegia. Current Medications: Current Medications Sig/Eduardo Start time Last Medication Dose Route Stop Time Status Admin Acetaminophen 650 MG Q6 PRN 06/20 1730 AC PO Albuterol Sulfate 3 ML Q4P PRN 06/20 2200 AC 06/22 INH 2148 Ampicillin Sodium/ 3,000 MG Q6H 06/21 1400 AC 06/23 Sulbactam Sodium IV 1400 Sodium Chloride 100 ML Aspirin 81 MG DAILY 06/21 1000 AC 06/23 PO 1010 Atorvastatin Calcium 80 MG 1700 06/20 1700 AC 06/23 PO 1717 Buprenorphine/ 1 TAB BID 06/21 1000 AC 06/23 Naloxone SL 1028 Cyclosporine 1 GTT Q12 06/200 AC 06/23 OPH 1011 Dextrose/Sodium 1,000 ML Q13H 06/21 1300 AC 06/23 Chloride IV 1717 Enoxaparin Sodium 40 MG DAILY 06/21 1000 AC 06/23 SC 1010 Magnesium Sulfate 1 GM Q2H 06/23 0700 DC 06/23 Dextrose/Water 100 ML IV 06/23 1059 1009 Nicotine 14 MG DAILY 06/21 1000 AC 06/23 TOP 1010 Pantoprazole Sodium 40 MG DAILY 06/20 1730 AC 06/23 IV 1009 Potassium Chloride 10 MEQ ONCE ONE 06/23 0700 DC 06/23 IV 06/23 0701 1009 Results Last 48 Hrs of Labs/Mics: Laboratory Tests 06/23/16 0410: Anion Gap 7, Estimated GFR > 60, Glucose 95, Calcium 8.5, Phosphorus 4.5, Magnesium 1.6, Total Bilirubin 0.6, AST 32, ALT 36, Albumin 3.0 L, CBC w Diff NO MAN DIFF REQ, RBC 3.82 L, MCV 94.6, MCH 31.9 H, RDW 13.5, MPV 9.0, Gran % 60.2, Lymphocytes % 29.4, Monocytes % 9.1, Eosinophils % 1.1, Basophils % 0.2, Absolute Granulocytes 4.6, Absolute Lymphocytes 2.3, Absolute Monocytes 0.7 H, Absolute Eosinophils 0.1, Absolute Basophils 0, PUBS MCHC 33.7 06/22/16 0400: Anion Gap 8, Estimated GFR > 60, Glucose 92, Calcium 8.6, Phosphorus 5.0 H, Magnesium 1.7, Total Bilirubin 0.9, AST 32, ALT 40, Albumin 3.3 L, CBC w Diff NO MAN DIFF REQ, RBC 3.92 L, MCV 93.5, MCH 32.4 H, RDW 13.4, MPV 9.0, Gran % 62.8, Lymphocytes % 29.4, Monocytes % 7.2, Eosinophils % 0.2, Basophils % 0.4, Absolute Granulocytes 8.1 H, Absolute Lymphocytes 3.8 H, Absolute Monocytes 0.9 H, Absolute Eosinophils 0, Absolute Basophils 0.1, PUBS MCHC 34.7 Recent Imaging Studies: MRI/MRA head (06/23/2016) There is a near occlusive thrombus within the proximal M1 segment of the left middle cerebral artery. There is also a moderate focal stenosis at the origin of the right middle cerebral artery. CT neck angiogram (06/22/2016) Mixed density atherosclerotic plaque at the left carotid bifurcation leads to a "near occlusion ". There is a second high-grade stenosis at the genu of the left cavernous carotid artery due to eccentric lipid density plaque and there is also acute at least partial occlusion of the left MCA. Eccentric lipid density plaque just beyond the origin of the nondominant right vertebral artery leads to 75% stenosis. Assessment/Plan Assessment/Plan Stroke syndrome in this middle-aged female with a long-standing history of tobacco use, dyslipidemia, carotid artery disease with CT angiogram and MRA of the neck as above, and no echocardiographic findings to suggest a cardioembolic source. While there remains the possibility that she may be having paroxysms of atrial fibrillation she has had none to date, but would continue to monitor. Vascular surgery has reviewed the CTA/MRA of the neck findings and the plan is for continued conservative management at this juncture. Continue telemetry? Yes
[2016-06-23 23:28] VITALS: BP 118/74
[2016-06-24 05:27] LABS: ABSOLUTE BASOPHIL COUNT 0 /CUMM (0.0-0.2); ABSOLUTE EOSINOPHIL COUNT 0.1 /CUMM (0.0-0.7); ABSOLUTE GRANULOCYTE CT 3.4 /CUMM (1.4-6.5); ABSOLUTE MONOCYTE COUNT 0.6 /CUMM (0.10-0.60); BASOPHIL % 0.3 % (0.0-2.0); EOSINOPHIL % 1.6 % (0-5); HEMATOCRIT 36.2 % (37-47); MEAN CORPUSCULAR HGB 31.7 PG (27.0-31.0); MEAN CORPUSCULAR HGB CONC 33.8 G/DL (33.0-37.0); MEAN CORPUSCULAR VOLUME 93.9 FL (81.0-99.0); MEAN PLATELET VOLUME 8.9 FL (7.4-10.4); PLATELET COUNT 178 /CUMM (130-400); RBC DISTRIBUTION WIDTH 13.6 % (11.5-14.5); RED BLOOD CELL CT 3.85 /CUMM (4.20-5.40); WHITE BLOOD CELL COUNT 6.1 /CUMM (4.8-10.8)
--- NOTE | 2016-06-24 07:10 | PN- Resident CRCU ---
Subjective HPI/CRCU Issues: HPI/CRCU Issues: Patient is a 56 YO F with H signficant for opiate abuse (on suboxone from 2 yrs), anxiety, depression, bipolar disorder came to ER with weakness on right upper and lower extremity with aphasia. She is able to say her name by the time she came to ER eventually became severely dyarthric. she failed bedside swallow evaluation in the ER. She is admitted to ICU for neurochecks every 1 hr. Currently she is stable. Carotid doppler demonstrated left ICA near complete occlusion. Followed by my CTA neck shows Mixed density atherosclerotic plaque at the left carotid bifurcation leads to a "near occlusion ". There is a second high-grade stenosis at the genu of the left cavernous carotid artery due to eccentric lipid density plaque and there is also acute at least partial occlusion of the left MCA. Eccentric lipid density plaque just beyond the origin of the nondominant right vertebral artery leads to 75% stenosis. Current CRCU issues 1. Left MCA territorial infarction with mild mass effect 2. Left ICA Stenosis 3. Aspiration pneumonia 24 Hour Events: I saw and examined the patient today morning. She is doing better, lying comfortably on her bed. Objective Vital Signs & I&O Last 8 Hrs of Vitals and I&O: VS stable saturating around 94% on 3L oxygen HR - 70-80, BP 110-130/80 mmHg, Afebrile On D5W1/2NS @50ml/hr so far and tube feeds. Currently off fluids - closely monitoring blood sugars Exam General Appearance: well developed/nourished, no apparent distress, alert, awake , comfortable Head: atraumatic, normal appearance Ears, Nose, Throat: normal pharynx, normal ENT inspection, hearing grossly normal Neck: normal inspection, supple Respiratory: normal breath sounds, chest non-tender, no respiratory distress Cardiovascular: regular rate/rhythm, murmur, normal peripheral pulses Gastrointestinal: normal bowel sounds, soft, non-tender Extremities: normal capillary refill, weakness of right side, improving everyday. flaccid right upper extremity. Cranial Nerves: normal hearing, PERRL, abnormal gag reflex, global aphasia Skin: intact IV Drips IV Drips: OFF Nutrition Nutrition: tube feeding Current Medications: Current Medications Sig/Eduardo Start time Last Medication Dose Route Stop Time Status Admin Acetaminophen 650 MG Q6 PRN 06/20 1730 AC PO Albuterol Sulfate 3 ML Q4P PRN 06/20 2200 AC 06/24 INH 0848 Ampicillin Sodium/ 3,000 MG Q6H 06/21 1400 AC 06/24 Sulbactam Sodium IV 1118 Sodium Chloride 100 ML Aspirin 81 MG DAILY 06/21 1000 AC 06/24 PO 1120 Atorvastatin Calcium 80 MG 1700 06/20 1700 AC 06/23 PO 1717 Buprenorphine/ 1 TAB BID 06/21 1000 AC 06/24 Naloxone SL 1122 Cyclosporine 1 GTT Q12 06/20 2200 AC 06/24 OPH 1119 Dextrose/Sodium 1,000 ML Q13H 06/21 1300 DC 06/23 Chloride IV 1717 Enoxaparin Sodium 40 MG DAILY 06/21 1000 AC 06/24 SC 1120 Magnesium Oxide 400 MG DAILY 06/24 1000 AC 06/24 PO 1119 Magnesium Sulfate 1 GM Q2H 06/24 0715 DC 06/24 Dextrose/Water 100 ML IV 06/24 1114 1119 Nicotine 7 MG DAILY 06/24 1000 CAN TOP Nicotine 14 MG DAILY 06/21 1000 DC 06/23 TOP 1010 Pantoprazole Sodium 40 MG DAILY 06/20 1730 AC 06/24 IV 1119 Polyethylene Glycol 17 GM ONCE ONE 06/24 1100 DC PO 06/24 1101 Potassium Chloride 10 MEQ ONCE ONE 06/24 0715 DC 06/24 IV 06/24 0716 1035 Antibiotics Antibiotic: unasyn Q6 Day #: 4 Impression/Plan Impression/Problem List Impression: Patient is a 56 YO F with PMH signficant for opiate abuse (on suboxone from 2 yrs), anxiety, depression, bipolar disorder came to ER with weakness on right upper and lower extremity with aphasia. She is able to say her name by the time she came to ER eventually became severely dyarthric. she failed bedside swallow evaluation in the ER. CT scan in the ER dosent reveal any acute pathology. MRI today is signfiicant of Left MCA with mass effect and left carotid stenosis significant enough to effect the circualtion. She is admitted to ICU for neurochecks every 1 hr. Currently she is stable. Carotid doppler demonstrated left ICA near complete occlusion. Followed by my CTA neck shows Mixed density atherosclerotic plaque at the left carotid bifurcation leads to a "near occlusion ". There is a second high-grade stenosis at the genu of the left cavernous carotid artery due to eccentric lipid density plaque and there is also acute at least partial occlusion of the left MCA. Eccentric lipid density plaque just beyond the origin of the nondominant right vertebral artery leads to 75% stenosis. MRA of the head shows there is a near occlusive thrombus within the proximal M1 segment of the left middle cerebral artery. There is also a moderate focal stenosis at the origin of the right middle cerebral artery. PLAN: Respiratory: Aspiration pneumonia * Cough with whitish phelgm production * Satuarting in 94% with a 3L NC. * CXR shows right lower lobe infitrate * Unasyn 3gm Q6 for a total of 7days - DAY 4 * White count improved and she remained afebrile overnight indicating response to antibiotics. Smoking cessation * Patient is a current daily smoker. * Placed on nicotine patch initially. * Discontinued today as per the family and patient wishes. Infectious Diseases: On unasyn 3g Q6 for aspiration pneumonia as above. Cardiovascular: * Cardio consult is placed. * ECHO shows EF of >65%. * On monitor to rule out paroxysmal A.Fib Metabolic: Persistent Hypokalemia and hypomagnesemia * K of 3.9 and Mag of 1.6 * Kcl of 10mEq IV, MgSo4 of 2gm IV is given * Today started on scheduled doses of mag 400mg daily. * will monitor daily and replete as needed. Alimentary: * Failed swallow evaluation twice. Started on tube feeds (06/22/16) - Monitoring blood sugars slowly * currently OFF IV fluids. Neurological: Left MCA stroke with Left ICA stenosis: * Complete right sided CVA with evident infarction on MRI with mass effect. * NG tube in place for medications. * Aspirin 300mg HI given in ER and placed on Aspirin 81mg, atorvastatin 80mg via NG tube * Failed bedside swallow evaluation - On tube feeds. * ECHO shows EF >65% and carotid ultrasound shows hemodynamically significant stenosis. * CT angio shows stenotic lesions near MCA, ICA (left), vertebral artery. * Vascular surgery want to follow up as an outpatient as they are not going to do any intervention now. * Physical therapy able to bring her OOB to chair. Able to bear weight on right side, still falccid in the upper extremity. Would definetely benefit form Acute Rehabilitation. * Neurology and neurosurgery on board. DVT/Prophylaxis: SC lovenox Code Status: Full Code Problem List: 1. Aspiration pneumonia 2. CVA (cerebral vascular accident) Pain Ratin Tomorrow's Labs & Rationales: ICU bundle cbc Plan DVT/Prophylaxis: SC lovenox Code Status: Full Code
[2016-06-24 08:00] VITALS: BP 120/80
--- NOTE | 2016-06-24 08:23 | RADIOLOGY REPORT ---
EXAMINATION: XR PORTABLE CHEST CLINICAL INFORMATION: Aspiration pneumonia COMPARISON: 06/22/2016 TECHNIQUE: Portable view of the chest was obtained. FINDINGS: Enteric tube courses below the diaphragm. Lung volumes are symmetric. There is mild hazy opacity at the medial right lung base, similar to prior. No new consolidation is seen. No evidence of pneumothorax, pleural effusion, or pulmonary edema. Cardiac size is within normal limits. Calcification is present at the aortic arch. No acute osseous findings are seen. IMPRESSION: Redemonstrated mild hazy medial right basilar opacity, similar to prior. No new consolidation.
--- NOTE | 2016-06-24 09:02 | PN- Pulmonary ---
Subjective HPI/Critical Care Issues: pt seen and examined 91% 3.5LNC hemodynamically stable working with PT improved RLE strength improved still aphasic CXR with right basilar opacity No obviousf pain ROS otherwise limited Objective Current Medications: Current Medications Sig/Eduardo Start time Last Medication Dose Route Stop Time Status Admin Acetaminophen 650 MG Q6 PRN 06/20 1730 AC PO Albuterol Sulfate 3 ML Q4P PRN 06/20 2200 AC 06/22 INH 2148 Ampicillin Sodium/ 3,000 MG Q6H 06/21 1400 AC 06/24 Sulbactam Sodium IV 0139 Sodium Chloride 100 ML Aspirin 81 MG DAILY 06/21 1000 AC 06/23 PO 1010 Atorvastatin Calcium 80 MG 1700 06/20 1700 AC 06/23 PO 1717 Buprenorphine/ 1 TAB BID 06/21 1000 AC 06/23 Naloxone SL 2228 Cyclosporine 1 GTT Q12 06/20 2200 AC 06/23 OPH 2228 Dextrose/Sodium 1,000 ML Q13H 06/21 1300 AC 06/23 Chloride IV 1717 Enoxaparin Sodium 40 MG DAILY 06/21 1000 AC 06/23 SC 1010 Magnesium Sulfate 1 GM Q2H 06/24 0715 AC Dextrose/Water 100 ML IV 06/24 1114 Magnesium Sulfate 1 GM Q2H 06/23 0700 DC 06/23 Dextrose/Water 100 ML IV 06/23 1059 1009 Nicotine 14 MG DAILY 06/21 1000 AC 06/23 TOP 1010 Pantoprazole Sodium 40 MG DAILY 06/20 1730 AC 06/23 IV 1009 Potassium Chloride 10 MEQ ONCE ONE 06/24 0715 DC IV 06/24 0716 Vital Signs & I&O Last 24 Hrs of Vitals and I&O: Vital Signs Date Time Temp Pulse Resp B/P Pulse O2 O2 Flow FiO2 Ox Delivery Rate 06/24 0000 91 Nasal 3.5L Cannula 06/238 98.0 78 24 118/74 97 Nasal 3.5L Cannula 06/23 2129 94 Nasal 3.0L Cannula 06/23 1600 98.0 80 18 120/70 94 Nasal 3.5L Cannula 06/23 1200 95 Nasal 3.5L Cannula Intake & Output 06/24 1600 06/24 0800 06/24 0000 Intake Total 1150 1100 Output Total 700 750 Balance 450 350 Intake, IV 600 600 Intake, Tube 400 350 Feeding Intake, Tube 150 150 Irrigant Output, Urine 700 750 Exam Other Physical Findings: gen arousable heent nc, ngt cvs s1, s2, murmur lungs rare rhonchi abd soft bs+ ext without edema neuro - still with facial droop, aphasia, hyperreflexic on right, flacidity on the RUE, RLE strength improving Results Last 24 Hrs of Lab Results: Laboratory Tests 06/24/16 0440: Anion Gap 5, Estimated GFR > 60, Glucose 106 H, Calcium 8.4, Phosphorus 4.5, Magnesium 1.6, Total Bilirubin 0.5, AST 35, ALT 38, Albumin 2.9 L, CBC w Diff NO MAN DIFF REQ, RBC 3.85 L, MCV 93.9, MCH 31.7 H, RDW 13.6, MPV 8.9, Gran % 56.0, Lymphocytes % 32.5, Monocytes % 9.6 H, Eosinophils % 1.6, Basophils % 0.3 , Absolute Granulocytes 3.4, Absolute Lymphocytes 2.0, Absolute Monocytes 0.6, Absolute Eosinophils 0.1, Absolute Basophils 0, PUBS MCHC 33.8 Impression/Plan Impression/Plan Impression/Plan: Impression 56 year old woman - Left MCA CVA - Aspiration pneumonia - right basilar opacity - Carotid artery bilateral stenosis - Tobacco dependence - Aphasia Plan Respiratory/ID - right basilary opacity, unasyn course for 7 days - TRC/Nebs - spo2 goal 92%, reduce fio2 as tolerated - was unable to prodcue sputum for cx CVS - hemodynamically significant stenosis of carotids, vascular surgery consultation appreciated - cardiology evaluation appreciated Heme - aspirin per neurology - monitor cbc, coags Metabolic - electrolyte repletion - monitor urine output - since getting tube feeds, d/c iv fluids, monitor glucose q4h Alimentary - tube feeds, cannot swallow, NGT Neuro - neurology follow up - aspirin - statin/lipitor - vascular surgery as outpatient - will require acute rehab DVT prophylaxis with Lovenox Stop nicotine patch per patient wishes Telemetry hold - will sign out to hospitalist team
--- NOTE | 2016-06-24 14:39 | PN- Cardiology ---
Subjective Subjective: Multiple family members are visiting. Alert remains aphasic, however, navdeep states she responded to her mother stating she was returning to [place] by stating, "I am too". Objective Vital Signs and I&Os Vital Signs Date Time Temp Pulse Resp B/P Pulse O2 O2 Flow FiO2 Ox Delivery Rate 06/24 0848 94 Nasal 3.0L Cannula 06/24 0000 91 Nasal 3.5L Cannula 06/23 2328 98.0 78 24 118/74 97 Nasal 3.5L Cannula 06/239 94 Nasal 3.0L Cannula 06/23 1600 98.0 80 18 120/70 94 Nasal 3.5L Cannula Intake & Output 06/24 1600 06/24 0800 06/24 0000 06/23 1600 06/23 0800 06/23 0000 Intake Total 1150 1100 938 938 Output Total 700 750 280 550 Balance 450 350 658 388 Intake, IV 600 600 654 684 Intake, Oral 0 0 Intake, Tube 400 350 184 69 Feeding Intake, Tube 150 150 100 185 Irrigant Number 0 0 Bowel Movements Output, Urine 700 750 280 550 Physical Exam: Lungs: Decreased breath sounds bilaterally with scattered rhonchi. Heart: S1, S2 with no obvious murmur, gallop, or rub appreciated, although difficult to hear secondary to rhonchi. PMI fifth ICS at [facility]. Abdomen: Soft, nontender, positive bowel sounds. Extremities: No edema. Neurological: Right facial droop and right dense hemiplegia. Current Medications: Current Medications Sig/Eduardo Start time Last Medication Dose Route Stop Time Status Admin Acetaminophen 650 MG Q6 PRN 06/20 1730 AC PO Albuterol Sulfate 3 ML Q4P PRN 06/20 2200 AC 06/24 INH 0848 Ampicillin Sodium/ 3,000 MG Q6H 06/21 1400 AC 06/24 Sulbactam Sodium IV 1118 Sodium Chloride 100 ML Aspirin 81 MG DAILY 06/21 1000 AC 06/24 PO 1120 Atorvastatin Calcium 80 MG 1700 06/20 1700 AC 06/23 PO 1717 Buprenorphine/ 1 TAB BID 06/21 1000 AC 06/24 Naloxone SL 1122 Cyclosporine 1 GTT Q12 06/20 2200 AC 06/24 OPH 1119 Dextrose/Sodium 1,000 ML Q13H 06/21 1300 DC 06/23 Chloride IV 1717 Enoxaparin Sodium 40 MG DAILY 06/21 1000 AC 06/24 SC 1120 Magnesium Oxide 400 MG DAILY 06/24 1000 AC 06/24 PO 1119 Magnesium Sulfate 1 GM Q2H 06/24 0715 DC 06/24 Dextrose/Water 100 ML IV 06/24 1114 1119 Nicotine 7 MG DAILY 06/24 1000 CAN TOP Nicotine 14 MG DAILY 06/21 1000 DC 06/23 TOP 1010 Pantoprazole Sodium 40 MG DAILY 06/20 1730 AC 06/24 IV 1119 Polyethylene Glycol 17 GM ONCE ONE 06/24 1100 DC PO 06/24 1101 Potassium Chloride 10 MEQ ONCE ONE 06/24 0715 DC 06/24 IV 06/24 0716 1035 Results Last 48 Hrs of Labs/Mics: Laboratory Tests 06/24/16 0440: Anion Gap 5, Estimated GFR > 60, Glucose 106 H, Calcium 8.4, Phosphorus 4.5, Magnesium 1.6, Total Bilirubin 0.5, AST 35, ALT 38, Albumin 2.9 L, CBC w Diff NO MAN DIFF REQ, RBC 3.85 L, MCV 93.9, MCH 31.7 H, RDW 13.6, MPV 8.9, Gran % 56.0, Lymphocytes % 32.5, Monocytes % 9.6 H, Eosinophils % 1.6, Basophils % 0.3 , Absolute Granulocytes 3.4, Absolute Lymphocytes 2.0, Absolute Monocytes 0.6, Absolute Eosinophils 0.1, Absolute Basophils 0, PUBS MCHC 33.8 06/23/16 0410: Anion Gap 7, Estimated GFR > 60, Glucose 95, Calcium 8.5, Phosphorus 4.5, Magnesium 1.6, Total Bilirubin 0.6, AST 32, ALT 36, Albumin 3.0 L, CBC w Diff NO MAN DIFF REQ, RBC 3.82 L, MCV 94.6, MCH 31.9 H, RDW 13.5, MPV 9.0, Gran % 60.2, Lymphocytes % 29.4, Monocytes % 9.1, Eosinophils % 1.1, Basophils % 0.2, Absolute Granulocytes 4.6, Absolute Lymphocytes 2.3, Absolute Monocytes 0.7 H, Absolute Eosinophils 0.1, Absolute Basophils 0, PUBS MCHC 33.7 Recent Imaging Studies: CXR (06/24/2016) Redemonstrated mild hazy medial right basilar opacity, similar to prior. No new consolidation. Assessment/Plan Assessment/Plan Stroke syndrome in this middle-aged female with a long-standing history of tobacco use, dyslipidemia, carotid artery disease with CT angiogram and MRA of the neck as previously reported, and no echocardiographic findings to suggest a cardioembolic source. While there remains the possibility that she may be having paroxysms of atrial fibrillation, she has had none to date, and her carotid disease is significant and likely the culprit for her presentation. Vascular surgery has reviewed the CTA/MRA of the neck findings and the plan is for continued conservative management at this juncture. Continue present regimen. Continue telemetry? No
--- NOTE | 2016-06-24 15:45 | Patient Discharge Instructions ---
Discharge Instructions General Discharge Information You were seen/treated for: 1. Acute left MCA stroke with near occlusion of left intracranial artery stenosis 2. Right-sided hemiparalysis 3. Aspiration pneumonia 4. Depression 5. History of IV drug abuse on Suboxone You had these procedures: PEG tube placement n 07/01/16 Watch for these problems: sudden weakness, drooling, unresponsiveness Special Instructions: follow-up with your primary care physician within one week of discharge Please follow-up with your neurologist within 2 weeks of discharge please follow-up with vascular surgery upon discharge Please follow-up with your management internship upon discharge Follow up with GI for removal of PEG in 6-8 weeks Diet Continue normal diet: No Recommended Diet: puree diet with nectar thick liquid Activity Full Activity/No Limits: No Activity Self Limited: Yes Activity Limited to: Weight bear as tolerated Other activity limits: Continue OT/PT Acute Coronary Syndrome Inclusion Criteria At DC or during hospital stay patient has or had the following: ACS DIAGNOSIS No Discharge Core Measures Meds if any: Prescribed or Continued at Discharge Meds if any: NOT Prescribed or Continued at Discharge Congestive Heart Failure Inclusion Criteria At DC or during hospital stay patient has or had the following: CHF DIAGNOSIS No Discharge Core Measures Meds if any: Prescribed or Continued at Discharge Meds if any: NOT Prescribed or Continued at Discharge Cerebrovascular accident Inclusion Criteria At DC or during hospital stay patient has or had the following: CVA/TIA Diagnosis Yes Discharge Core Measures Meds if any: Prescribed or Continued at Discharge Antithrombotic Yes Statin (required if LDL =>70) Yes Anticoagulant No Meds if any: NOT Prescribed or Continued at Discharge No Anticoagulant d/t Medical Contraindication Venous thromboembolism Inclusion Criteria VTE Diagnosis No VTE Type NONE VTE Confirmed by (Test) NONE Discharge Core Measures - Per Current guidelines, there needs to be overlap - treatment for the first 5 days of Warfarin therapy. - If discharged on Warfarin prior to 5 days of - overlap therapy, the patient will need to be - assessed for post discharge needs including - *Post discharge parental anticoagulation - *Warfarin and/or parental anticoagulation education - *Follow up date to check INR post discharge At least 5 days overlap therapy as Inpatient No Meds if any: Prescribed or Continued at Discharge Note: Overlap Therapy is Warfarin and Anticoagulant Meds if any: NOT Prescribed or Continued at Discharge
[2016-06-24 16:00] VITALS: BP 130/80
--- NOTE | 2016-06-24 17:16 | NUR ---
PT DROWSY BUT WAKES EASILY. REMAINS NPO WITH TF INFUSING AT GOAL RATE. PT HAS NOT HAD BM SINCE 06/19. MIRILAX GIVEN. RACHELE D/C/D AND SHE IS DTV [id number]. PT/OT IN AND SHE IS TOLERATING OOB TO CHAIR. RIGHT SHOULDER ELEVATED ON 2 PILLOWS. SHE REMAINS APHASIC BUT APPEARS TO FOLLOW CONVERSATIONS, INTERACTS WITH FACIAL EXPRESSIONS AND TRYING TO WRITE WHEN VISITING WITH HER FAMILY. MONITOR NSR.
--- NOTE | 2016-06-24 18:35 | NUR ---
PT S/P CVA, V/S STABLE. APHASIC WITH RIGHT SIDE NEGLECT AND PARALYSIS. OB TO CHAIR WITH ASSIST OF 2. JEFFREY D/C/D AND PT DTV [id number]. NPO WITH TF INFUSING AT 50 MLS PER HOUR. STABLE FOR TRANSFER, TRANSFERRED TO FLOOR AFTER REPORT CALLED.
[2016-06-24 19:26] VITALS: BP 98/60
--- NOTE | 2016-06-24 22:31 | NUR ---
PATIENT RECEIVED FROM ICU AROUND 193. PATIENT ALERT BUT UNABLE TO MAKE FULL SENTENCES. ABLE TO FOLLOW COMMAND. RIGHT SIDED PARALYSIS NOTED. LEFT SIDED UPPER EXT STRENGTH IS NORMAL. SKIN INTACT. NGT TO LEFT NARE. JEVITY 1.2 INFUSING AT 50 ML/HR WITH 75 ML OF H2O FLUSH Q 4 HR. PATIENT IN NO APPARENT DISTRESS. [facility] AT [facility] WHEN PATIENT ARRIVED ON FLOOR. CALL LIGHT WITHIN REACH. WILL CONTINUE TO MONITOR.
[2016-06-25 00:50] VITALS: BP 122/60
[2016-06-25 06:30] VITALS: BP 104/60
[2016-06-25 08:05] LABS: ABSOLUTE BASOPHIL COUNT 0 /CUMM (0.0-0.2); ABSOLUTE EOSINOPHIL COUNT 0.2 /CUMM (0.0-0.7); ABSOLUTE LYMPH COUNT 2.4 /CUMM (1.2-3.4); ABSOLUTE MONOCYTE COUNT 0.6 /CUMM (0.10-0.60); BASOPHIL % 0.5 % (0.0-2.0); EOSINOPHIL % 2.7 % (0-5); GRANULOCYTE % 48.9 % (42.2-75.2); HEMATOCRIT 34.8 % (37-47); MEAN CORPUSCULAR VOLUME 94.1 FL (81.0-99.0); MEAN PLATELET VOLUME 8.9 FL (7.4-10.4); PLATELET COUNT 190 /CUMM (130-400); RBC DISTRIBUTION WIDTH 13.4 % (11.5-14.5); WHITE BLOOD CELL COUNT 6.2 /CUMM (4.8-10.8)
--- NOTE | 2016-06-25 08:35 | PN- Housestaff ---
See Addendum Subjective Follow-up For: Left MCA territorial infarction with mild mass effect Left ICA Stenosis Aspiration pneumonia Subjective: seen examined patient, nonverbal. Has NG tube in place. Obeys commands appropriately and answers questions with head nodding. Denied being in pain however did report some difficulty with breathing Review of Systems Constitutional: Reports: see HPI. Objective Last 24 Hrs of Vital Signs/I&O Vital Signs Date Time Temp Pulse Resp B/P Pulse O2 O2 Flow FiO2 Ox Delivery Rate 06/25 1341 97.6 76 20 150/60 95 Nasal 3.0L Cannula 06/25 0630 99.3 82 20 104/60 93 Nasal 3.0L Cannula 06/25 0050 90 20 122/60 92 Nasal Cannula 06/25 0000 Nasal 3.5L Cannula 06/24 1926 98.2 82 20 98/60 94 Nasal 3.0L Cannula 06/24 1800 94 Nasal 3.0L Cannula 06/24 1600 98.0 80 18 130/80 95 Nasal 3.5L Cannula 06/24 1600 97 Nasal 3.5L Cannula Intake & Output 06/25 1600 06/25 0800 06/25 0000 Intake Total 650 400 Output Total Balance 650 400 Intake, IV 100 100 Intake, Oral 0 Intake, Tube 550 150 Feeding Intake, Tube 150 Irrigant Number 0 Bowel Movements Physical Exam General Appearance: Alert Cardiovascular: Normal S1, Normal S2 Lungs: bilateral rhonchi Abdomen: Normal Bowel Sounds, Soft, No Tenderness Neurological: dense right hemiplegia Current Medications: Current Medications Sig/Eduardo Start time Last Medication Dose Route Stop Time Status Admin Acetaminophen 650 MG Q6 PRN 06/20 1730 AC PO Albuterol Sulfate 3 ML Q4P PRN 06/20 2200 AC 06/24 INH 0848 Ampicillin Sodium/ 3,000 MG Q6H 06/21 1400 AC 06/25 Sulbactam Sodium IV 0820 Sodium Chloride 100 ML Aspirin 81 MG DAILY 06/21 1000 AC 06/25 PO 0923 Atorvastatin Calcium 80 MG 1700 06/20 1700 AC 06/24 PO 1650 Buprenorphine/ 1 TAB BID 06/21 1000 AC 06/25 Naloxone SL 0923 Cyclosporine 1 GTT Q12 06/20 2200 AC 06/25 OPH 0924 Enoxaparin Sodium 40 MG DAILY 06/21 1000 AC 06/25 SC 0923 Magnesium Oxide 400 MG DAILY 06/24 1000 AC 06/25 PO 0923 Pantoprazole Sodium 40 MG DAILY 06/20 1730 AC 06/25 IV 0924 Last 24 Hrs of Lab/Edgar Results Last 24 Hrs of Labs/Mics: Laboratory Tests 06/25/16 0600: Anion Gap 7, Estimated GFR > 60, Glucose 88, Calcium 8.4, Phosphorus 4.7 H, Magnesium 1.7, Total Bilirubin 0.4, AST 41 H, ALT 43, Albumin 2.9 L, CBC w Diff NO MAN DIFF REQ, RBC 3.70 L, MCV 94.1, MCH 32.0 H, RDW 13.4, MPV 8.9, Gran % 48.9, Lymphocytes % 38.0, Monocytes % 9.9 H, Eosinophils % 2.7, Basophils % 0.5, Absolute Granulocytes 3.0, Absolute Lymphocytes 2.4, Absolute Monocytes 0.6, Absolute Eosinophils 0.2, Absolute Basophils 0, PUBS MCHC 34.0 Assessment/Plan Assessment: 56 -year-old woman with PMH signficant for opiate abuse (on suboxone from 2 yrs ), anxiety, depression, bipolar disorder initially admitted to ICU for new left MCA territory infarct, strands for her to the general med floor overnight Plan: Left MCA territory infarct * NG tube in place for medications and feeds * on Aspirin 81mg, atorvastatin 80mg via NG tube * Failed bedside swallow evaluation, didnt perform formal swallow evaluation today as per the clinical condition * Found to have bilateral carotid stenosis and left middle cerebral artery stenosis * ECHO shows normal left ventricular EF at more than 65% * Neurology and vascular on board appreciate their recommendations Aspiration pneumonia * Tmax 99.3 woman no increased white count * saturating 95% on 3 L * On IV Unasyn 3gm Q6 started History of opiate abuse on suboxone * Continue Suboxone BID SL History of anxiety/depression/bipolar disorder * On fluoxetine and Olanzapine at home * Currently holding them DVT prophylaxis * ALPS * Lovenox Code Status * Full Code Problem List: 1. CVA (cerebral vascular accident) 2. Aspiration pneumonia Pain Ratin Pain Location: na Pain Goal: Pain 4 or less Pain Plan: current regimen Tomorrow's Labs & Rationales: cbc/bep/mag
--- NOTE | 2016-06-25 11:15 | NUR ---
Physical Therapy Attempt made to see pt for PT this AM; pt presents in supine in NAD with increased fatigue/slightly lethargic therefore PT/OOB activity deferred at this time. Will f/u for PT as appropriate.
[2016-06-25 13:41] VITALS: BP 150/60
[2016-06-25 22:24] VITALS: BP 118/62
[2016-06-26 07:25] VITALS: BP 132/70
[2016-06-26 08:19] LABS: ABSOLUTE BASOPHIL COUNT 0 /CUMM (0.0-0.2); ABSOLUTE EOSINOPHIL COUNT 0.1 /CUMM (0.0-0.7); ABSOLUTE GRANULOCYTE CT 3.5 /CUMM (1.4-6.5); ABSOLUTE LYMPH COUNT 2.3 /CUMM (1.2-3.4); ABSOLUTE MONOCYTE COUNT 0.4 /CUMM (0.10-0.60); BASOPHIL % 0.4 % (0.0-2.0); EOSINOPHIL % 2.1 % (0-5); GRANULOCYTE % 54.2 % (42.2-75.2); HEMATOCRIT 38.1 % (37-47); MEAN CORPUSCULAR HGB 32.1 PG (27.0-31.0); MEAN CORPUSCULAR VOLUME 94.3 FL (81.0-99.0); MEAN PLATELET VOLUME 9.3 FL (7.4-10.4); PLATELET COUNT 194 /CUMM (130-400); RBC DISTRIBUTION WIDTH 13.4 % (11.5-14.5); RED BLOOD CELL CT 4.04 /CUMM (4.20-5.40); WHITE BLOOD CELL COUNT 6.4 /CUMM (4.8-10.8)
--- NOTE | 2016-06-26 09:49 | PN- Att Addend ---
Attending Addendum Attending Brief Note 56 year old female with past medical history significant for opiate abuse (on Suboxone), anxiety/depression/bipolar disorder is being downgraded from the ICU where she was admitted initially for a left middle cerebral artery territory infarct ( CVA).She was seen and examined on the bedside this morning. She opens her eyes when called by her name but found to have aphasia. Vascular surgery recommended conservative management after reviewing the CTA/MRA of the neck findings that shows bilateral carotid artery stenosis. No possible source of cardioembolism. For now we would continue the patient on NG tube for medications and feeds, aspirin, atorvastatin and would continue with IV Unasyn 3 g every 6 for aspiration pneumonia, would continue the rest of her home treatment. Would involve the PT and she would be primarily a candidate for short -term rehabilitation when her clinical condition stabilizes.
--- NOTE | 2016-06-26 10:25 | PN- Cardiology ---
Subjective Subjective: The patient remains nonverbal. She notes in response to questions. She denies any significant chest pain or shortness of breath. No palpitations. No diaphoresis. Objective Vital Signs and I&Os Vital Signs Date Time Temp Pulse Resp B/P Pulse O2 O2 Flow FiO2 Ox Delivery Rate 06/26 0725 98.6 80 20 132/70 94 Nasal Cannula 06/26 0000 95 Nasal 3.0L Cannula 06/25 2224 99.0 82 20 118/62 95 06/25 1728 91 Nasal 3.0L Cannula 06/25 1341 97.6 76 20 150/60 95 Nasal 3.0L Cannula Intake & Output 06/26 1600 06/26 0800 06/26 0000 06/25 1600 06/25 0800 06/25 0000 Intake Total 650 500 580 650 400 Output Total Balance 650 500 580 650 400 Intake, IV 100 200 100 100 Intake, Oral 0 0 Intake, Other 550 30 Intake, Tube 350 350 550 150 Feeding Intake, Tube 150 150 Irrigant Number 0 1 0 Bowel Movements Physical Exam: Gen: NAD HEENT: normal Lungs: clear to auscultation, normal resp. effort Heart: RRR, S1, S2, no murmurs Abdomen: Soft, nontender, no masses Extremities: No clubbing, cyanosis, or edema. Neuro: Alert but nonverbal x 3, right hemiplegia. Right facial droop. Current Medications: Current Medications Sig/Eduardo Start time Last Medication Dose Route Stop Time Status Admin Acetaminophen 650 MG Q6 PRN 06/20 1730 AC PO Albuterol Sulfate 3 ML Q4P PRN 06/20 2200 AC 06/25 INH 1726 Ampicillin Sodium/ 3,000 MG Q6H 06/21 1400 AC 06/26 Sulbactam Sodium IV 0851 Sodium Chloride 100 ML Aspirin 81 MG DAILY 06/21 1000 AC 06/26 PO 0851 Atorvastatin Calcium 80 MG 1700 06/20 1700 AC 06/25 PO 1621 Buprenorphine/ 1 TAB BID 06/21 1000 AC 06/26 Naloxone SL 0859 Cyclosporine 1 GTT Q12 06/20 2200 AC 06/26 OPH 0851 Enoxaparin Sodium 40 MG DAILY 06/21 1000 AC 06/26 SC 0851 Magnesium Oxide 400 MG DAILY 06/24 1000 AC 06/26 PO 0851 Pantoprazole Sodium 40 MG DAILY 06/20 1730 AC 06/26 IV 0851 Results Last 48 Hrs of Labs/Mics: Laboratory Tests 06/26/16 0600: Anion Gap 11, Estimated GFR > 60, BUN/Creatinine Ratio 20.0, Phosphorus 5.1 H, Magnesium 1.6, CBC w Diff NO MAN DIFF REQ, RBC 4.04 L, MCV 94.3, MCH 32.1 H, RDW 13.4, MPV 9.3, Gran % 54.2, Lymphocytes % 36.4, Monocytes % 6.9, Eosinophils % 2.1, Basophils % 0.4, Absolute Granulocytes 3.5, Absolute Lymphocytes 2.3, Absolute Monocytes 0.4, Absolute Eosinophils 0.1, Absolute Basophils 0, PUBS MCHC 34.0 06/25/16 0600: Anion Gap 7, Estimated GFR > 60, Glucose 88, Calcium 8.4, Phosphorus 4.7 H, Magnesium 1.7, Total Bilirubin 0.4, AST 41 H, ALT 43, Albumin 2.9 L, CBC w Diff NO MAN DIFF REQ, RBC 3.70 L, MCV 94.1, MCH 32.0 H, RDW 13.4, MPV 8.9, Gran % 48.9, Lymphocytes % 38.0, Monocytes % 9.9 H, Eosinophils % 2.7, Basophils % 0.5, Absolute Granulocytes 3.0, Absolute Lymphocytes 2.4, Absolute Monocytes 0.6, Absolute Eosinophils 0.2, Absolute Basophils 0, PUBS MCHC 34.0 Recent Imaging Studies: Echocardiogram 06/22/16: Normal size left ventricle. Mild concentric left ventricular hypertrophy. Normal left ventricular ejection fraction visually estimated at > 65%. Normal left ventricular diastolic filling pattern for age. Normal right ventricular size and function. Normal atrial size. Trace mitral regurgitation. Mild tricuspid regurgitation. No evidence of pulmonary hypertension. Assessment/Plan Assessment/Plan Assessment: 1. Acute CVA 2. Aspiration pneumonia 3. Bilateral carotid stenosis Plan: * Continue aspirin. * Continue atorvastatin. * Follow vascular recommendations regarding carotid stenosis. * Follow up with surgery and neurology as outpatient. Continue telemetry? Not applicable
--- NOTE | 2016-06-26 11:34 | NUR ---
UPON ENTRY PT WAS RESPONDING PREPARATORY VC-IE MOVE YOUR ARM SO I CAN PULL OFF THE BLANKET ETC HOWEVER WHEN GIVEN INSTRUCTION TO TURN PT REFUSED MULTIPLE TIMES WITH A NON-VERBAL HEAD SHAKE. NURSING IN ROOM TYRING TO MOTIVATE WELL HOWEVER PT CONT. TO REFUSE. PT WILL ATTEMPT AGAIN AT ANOTHER DATE
[2016-06-26 14:45] VITALS: BP 118/60
--- NOTE | 2016-06-26 17:12 | PN- Housestaff ---
Subjective Follow-up For: CVA ICA stenosis Aspiration pneumonia Subjective: Separation at bedside this a.m. Secondary to CVA she has severe dysarthria and inability to speak, she has failed bedside swallowing evaluation. Patient did not endorse any active complaints. Review of Systems Constitutional: Reports: no symptoms. Comments: Unable to obtain a formal an accurate review of systems as patient is severely dysarthric and aphasic secondary to CVA Objective Last 24 Hrs of Vital Signs/I&O Vital Signs Date Time Temp Pulse Resp B/P Pulse O2 O2 Flow FiO2 Ox Delivery Rate 06/26 1600 Nasal 3.0L Cannula 06/26 1445 98.7 79 20 118/60 93 06/26 0800 Nasal 3.0L Cannula 06/26 0725 98.6 80 20 132/70 94 Nasal Cannula 06/26 0000 95 Nasal 3.0L Cannula 06/25 2224 99.0 82 20 118/62 95 06/25 1728 91 Nasal 3.0L Cannula Intake & Output 06/26 1600 06/26 0800 06/26 0000 Intake Total 400 650 500 Output Total Balance 400 650 500 Intake, IV 100 Intake, Oral 0 0 Intake, Other 400 550 Intake, Tube 350 Feeding Intake, Tube 150 Irrigant Number 0 0 Bowel Movements Physical Exam General Appearance: Alert, No Acute Distress Skin: No Significant Lesion HEENT: Atraumatic, PERRLA, EOMI Neck: Supple Cardiovascular: UPON AUSCULTATION PATIENT SOUNDS VERY WET. Unable to appreciate any gross cardiac pathology on auscultation. Lungs: atient sounds very wet. Crackles present. Abdomen: Soft, No Tenderness, has tube feeds Neurological: unable to speak. Extremities: No Clubbing Current Medications: Current Medications Sig/Eduardo Start time Last Medication Dose Route Stop Time Status Admin Acetaminophen 650 MG Q6 PRN 06/20 1730 AC PO Albuterol Sulfate 3 ML Q4P PRN 06/20 2200 AC 06/25 INH 1726 Ampicillin Sodium/ 3,000 MG Q6H 06/21 1400 AC 06/26 Sulbactam Sodium IV 1310 Sodium Chloride 100 ML Aspirin 81 MG DAILY 06/21 1000 AC 06/26 PO 0851 Atorvastatin Calcium 80 MG 1700 06/20 1700 AC 06/26 PO 1603 Bisacodyl 10 MG Q12P PRN 06/26 1245 AC 06/26 WI 1310 Buprenorphine/ 1 TAB BID 06/21 1000 AC 06/26 Naloxone SL 0859 Cyclosporine 1 GTT Q12 06/20 2200 06/26 OPH 0851 Enoxaparin Sodium 40 MG DAILY 06/21 1000 AC 06/26 SC 0851 Magnesium Oxide 400 MG DAILY 06/24 1000 AC 06/26 PO 0851 Pantoprazole Sodium 40 MG DAILY 06/20 1730 AC 06/26 IV 0851 Last 24 Hrs of Lab/Edgar Results Last 24 Hrs of Labs/Mics: Laboratory Tests 06/26/16 0600: Anion Gap 11, Estimated GFR > 60, BUN/Creatinine Ratio 20.0, Phosphorus 5.1 H, Magnesium 1.6, CBC w Diff NO MAN DIFF REQ, RBC 4.04 L, MCV 94.3, MCH 32.1 H, RDW 13.4, MPV 9.3, Gran % 54.2, Lymphocytes % 36.4, Monocytes % 6.9, Eosinophils % 2.1, Basophils % 0.4, Absolute Granulocytes 3.5, Absolute Lymphocytes 2.3, Absolute Monocytes 0.4, Absolute Eosinophils 0.1, Absolute Basophils 0, PUBS MCHC 34.0 Assessment/Plan Assessment: 56 -year-old woman with PMH signficant for opiate abuse (on suboxone from 2 yrs ), anxiety, depression, bipolar disorder initially admitted to ICU for new left MCA territory infarct, transferred to general med floor overnight Plan: Left MCA territory infarct * NG tube in place for medications and feeds * on Aspirin 81mg, atorvastatin 80mg via NG tube * Failed bedside swallow evaluation, didnt perform formal swallow evaluation today as per the clinical condition. She is on TPN and her phosphorus is currently elevated and mag within normal limits. * She can go to acute rehabilitation if bed is available * Found to have bilateral carotid stenosis and left middle cerebral artery stenosis * ECHO shows normal left ventricular EF at more than 65% * Neurology and vascular on board appreciate their recommendations Aspiration pneumonia: On physical exam patient's lungs sound very wet. She is on TPN. * saturating 95% on 3 L * Continue IV Unasyn 3gm Q6 * Patient has remained afebrile History of opiate abuse on suboxone * Continue Suboxone BID SL History of anxiety/depression/bipolar disorder * On fluoxetine and Olanzapine at home * Currently holding them DVT prophylaxis * ALPS * Lovenox Code Status * Full Code Problem List: 1. CVA (cerebral vascular accident) 2. Aspiration pneumonia Pain Ratin Pain Location: none Pain Goal: Remain pain free Pain Plan: none Tomorrow's Labs & Rationales: cbc bep
[2016-06-26 22:44] VITALS: BP 102/60
[2016-06-27 06:37] VITALS: BP 118/66
[2016-06-27 07:52] LABS: ABSOLUTE BASOPHIL COUNT 0 /CUMM (0.0-0.2); ABSOLUTE EOSINOPHIL COUNT 0.1 /CUMM (0.0-0.7); ABSOLUTE GRANULOCYTE CT 4.1 /CUMM (1.4-6.5); ABSOLUTE LYMPH COUNT 2.9 /CUMM (1.2-3.4); ABSOLUTE MONOCYTE COUNT 0.6 /CUMM (0.10-0.60); BASOPHIL % 0.3 % (0.0-2.0); EOSINOPHIL % 1.3 % (0-5); GRANULOCYTE % 53.2 % (42.2-75.2); HEMATOCRIT 39.7 % (37-47); MEAN CORPUSCULAR HGB 31.8 PG (27.0-31.0); MEAN CORPUSCULAR HGB CONC 33.7 G/DL (33.0-37.0); MEAN CORPUSCULAR VOLUME 94.1 FL (81.0-99.0); MEAN PLATELET VOLUME 9.1 FL (7.4-10.4); PLATELET COUNT 205 /CUMM (130-400); RBC DISTRIBUTION WIDTH 13.3 % (11.5-14.5); RED BLOOD CELL CT 4.22 /CUMM (4.20-5.40); WHITE BLOOD CELL COUNT 7.7 /CUMM (4.8-10.8)
--- NOTE | 2016-06-27 09:06 | PN- Housestaff ---
JOVI LOVE 06/27/16 0906: Subjective Follow-up For: CVA Depression Subjective: I have seen and examined the patient. Patient is on NG tube. Swallow evaluation is pending. Possible need for PEG tube. Patient has right-sided hemiparesis. Review of Systems Constitutional: Reports: see HPI. Objective Last 24 Hrs of Vital Signs/I&O Vital Signs Date Time Temp Pulse Resp B/P Pulse O2 O2 Flow FiO2 Ox Delivery Rate 06/27 0800 Nasal 3.0L Cannula 06/27 0637 98.4 75 20 118/66 93 Nasal Cannula 06/27 0000 94 Nasal 3.0L Cannula 06/26 2244 99.1 87 20 102/60 94 Nasal Cannula 06/26 2136 92 Nasal 3.0L Cannula 06/26 1600 Nasal 3.0L Cannula 06/26 1445 98.7 79 20 118/60 93 Intake & Output 06/27 1600 06/27 0800 06/27 0000 Intake Total 625 680 Output Total Balance 625 680 Intake, IV 100 130 Intake, Other 0 Intake, Tube 400 400 Feeding Intake, Tube 125 150 Irrigant Number 1 5 Bowel Movements Physical Exam General Appearance: Alert, Cooperative, No Acute Distress Other Physical Findings: Cardiovascular: Normal S1, Normal S2 Lungs: bilateral rhonchi Abdomen: Normal Bowel Sounds, Soft, No Tenderness Neurological: dense right hemiplegia Current Medications: Current Medications Sig/Eduardo Start time Last Medication Dose Route Stop Time Status Admin Acetaminophen 650 MG Q6 PRN 06/20 1730 AC 06/27 PO 0905 Albuterol Sulfate 3 ML Q4P PRN 06/20 2200 AC 06/27 INH 1122 Ampicillin Sodium/ 3,000 MG Q6H 06/21 1400 AC 06/27 Sulbactam Sodium IV 0840 Sodium Chloride 100 ML Aspirin 81 MG DAILY 06/21 1000 AC 06/27 PO 0841 Atorvastatin Calcium 80 MG 1700 06/20 1700 AC 06/26 PO 1603 Bisacodyl 10 MG Q12P PRN 06/26 1245 AC 06/26 CO 1310 Buprenorphine/ 1 TAB BID 06/21 1000 AC 06/27 Naloxone SL 0841 Cyclosporine 1 GTT Q12 06/20 2200 AC 06/27 OPH 0841 Enoxaparin Sodium 40 MG DAILY 06/21 1000 AC 06/27 SC 0841 Magnesium Oxide 400 MG DAILY 06/24 1000 AC 06/27 PO 0841 Pantoprazole Sodium 40 MG DAILY 06/20 1730 AC 06/27 IV 0841 Assessment/Plan Assessment: 56 -year-old woman with PMH signficant for opiate abuse (on suboxone from 2 yrs ), anxiety, depression, bipolar disorder initially admitted to ICU for new left MCA territory infarct, transferred to general med floor overnight Plan: Left MCA territory infarct * NG tube in place for medications and feeds * on Aspirin 81mg, atorvastatin 80mg via NG tube * Failed bedside swallow evaluation, on Tube feeding * She can go to acute rehabilitation if bed is available * Found to have bilateral carotid stenosis and left middle cerebral artery stenosis * ECHO shows normal left ventricular EF at more than 65% * Neurology and vascular on board appreciate their recommendations Aspiration pneumonia: On physical exam patient's lungs sound very wet. She is on TPN. * saturating 95% on 3 L * Continue IV Unasyn 3gm Q6 * Patient has remained afebrile History of opiate abuse on suboxone * Continue Suboxone BID SL History of anxiety/depression/bipolar disorder * On fluoxetine and Olanzapine at home * Currently holding them DVT prophylaxis * ALPS * Lovenox Code Status * Full Code Problem List: 1. CVA (cerebral vascular accident) Pain Ratin Pain Location: no pain Pain Goal: Pain 4 or less Pain Plan: asme Tomorrow's Labs & Rationales: CC BP, on NG tube, CVA [facility] 06/27/16 1106: Attending MD Review Statement Attending Statement Attending MD Statement: examined this patient, discuss w/resident/PA/CASE MANAGEMENT SPECIALIST, agreed w/resident/PA/CASE MANAGEMENT SPECIALIST, reviewed EMR data (avail), discussed with nursing, reviewed images Attending Assessment/Plan: 56 year old female with past medical history significant for opiate abuse (on Suboxone), anxiety/depression/bipolar disorder is being downgraded from the ICU where she was admitted initially for a left middle cerebral artery territory infarct ( CVA).She was seen and examined on the bedside this morning. She is non verbal but understand and follows commands. Vascular surgery recommended conservative management after reviewing the CTA/MRA of the neck findings that shows bilateral carotid artery stenosis. No possible source of cardioembolism. For now we would continue the patient on NG tube for medications and feeds since she failed swallow eval, aspirin, atorvastatin and would continue with IV Unasyn 3 g every 6 for aspiration pneumonia, would continue the rest of her home treatment. PT has been working with her but looks depressed and does not put her efforts. She is a candidate for STR unless she is able to pass swallow eval. Please she needs to be evaluated by the psyche due to her underlying depression.
--- NOTE | 2016-06-27 13:27 | Cons- Psychiatry ---
Psychiatric Consult Date of Consult: 06/27/16 Allergies: Coded Allergies: azithromycin (TREMORS 06/20/16) erythromycin base (TREMORS 06/20/16) Past History Past Medical History Neurological: NONE EENT: NONE Cardiovascular: NONE Respiratory: NONE Gastrointestinal: NONE Hepatic: NONE Renal: NONE Musculoskeletal: NONE Psychiatric: anxiety, bipolar disease, depression, opioid dependence Endocrine: NONE Blood Disorders: NONE Cancer(s): NONE RADIATION THERAPIST/Reproductive: NONE Past Surgical History Surgical History: non-contributory Assessment/Plan Impression: Patient seen at 1:04 PM. The patient is a 56-year-old engaged white woman who was admitted on 06/20/16. She presented to the hospital with right-sided weakness and slurred speech. She apparently suffered from a left MCA stroke. She has right hemiparesis, dysphagia and aspiration pneumonia. She had acute hypoxemic respiratory failure. She apparently has carotid stenosis, worse at the left ICA. Psychiatric history is significant for bipolar disorder, anxiety, depression, and history of IV drug abuse. By report, patient has been clean from opiates 2 years, since on Suboxone. Past psychiatric history: Followed by Lela Zheng M.D. Substance abuse history: Reportedly smokes 2 packs per day. History of IV drug abuse. Urine drug screen was negative. Medications: Current medications reviewed. Suboxone has been ordered. Medications prior to admission included: Zyprexa 5 mg q.p.m., Prozac 20 mg daily, Suboxone 8/2 film b.i.d., vitamin D3 daily, Restasis eyedrops. Allergies: Azithromycin and erythromycin. Past medical history: Please see above. Family psychiatric and substance abuse history: Unknown. Patient is aphasic. Social history: Unknown. Patient is aphasic. Mental status examination: The patient is a white woman dressed in hospital garb, noted to have nasal cannula and a nasogastric tube in place. She is resting in bed. Affect is calm and she seems mildly frustrated due to her aphasia. Speech: aphasic. She nods to give answers. She would like to restart Prozac and Zyprexa. Denies feeling depressed. Denies feeling hopeless, helpless, worthless or guilty. Denies suicidal and homicidal ideation. Denies auditory and visual hallucinations and paranoid ideation. Patient confirms being frustrated about her speech and consequential limited ability to communicate. LABS: Lab results, imaging studies and EKG were reviewed. IMPRESSION: Bipolar disorder, depressed. History of opioid dependence, now on partial agonist therapy, Suboxone. This was a limited interview due to apparent productive aphasia. The patient denies feeling depressed. Nonetheless, post-stroke depression is very common and patient should be continued on her home medications of Prozac and Zyprexa. I have ordered them. Patient should also be continued on Suboxone. Thank you for this consultation. Please reconsult psychiatry as needed.
[2016-06-27 15:25] VITALS: BP 110/58
[2016-06-27 22:13] VITALS: BP 118/64
[2016-06-28 07:20] VITALS: BP 102/50
--- NOTE | 2016-06-28 08:18 | PN- Housestaff ---
FLACA JACKSON 06/28/16 0818: Subjective Follow-up For: CVA B/L carotid stenosis Depression Subjective: seen and examined pt, was able to say few words " I would like" communicates through head nodding. Denies pain, trouble breathing, abdominal pain. Review of Systems Constitutional: Denies: chills, diaphoresis, fever, malaise, weakness, unexplained weight loss. Cardiovascular: Denies: chest pain, edema, orthopena, palpitations, peripheral edema, syncope. Respiratory: Denies: cough, hemoptysis, orthopnea, short of breath, sputum production, stridor, wheezing. Objective Last 24 Hrs of Vital Signs/I&O Vital Signs Date Time Temp Pulse Resp B/P Pulse O2 O2 Flow FiO2 Ox Delivery Rate 06/28 0720 98.4 68 20 102/50 93 Nasal 3.0L Cannula 06/28 0000 Nasal 3.0L Cannula 06/27 2213 98.9 98 20 118/64 94 06/27 1919 93 Nasal 3.0L Cannula 06/27 1525 97.9 75 94 110/58 94 06/27 1400 95 Nasal Cannula Intake & Output 06/28 1600 06/28 0800 06/28 0000 Intake Total 650 500 Output Total Balance 650 500 Intake, IV 300 150 Intake, Other 200 Intake, Tube 200 Feeding Intake, Tube 150 150 Irrigant Number 1 1 Bowel Movements Physical Exam General Appearance: Alert, No Acute Distress Cardiovascular: Regular Rate, Normal S1, Normal S2 Lungs: Normal Air Movement Abdomen: Normal Bowel Sounds, Soft, No Tenderness Neurological: aphasic, dense right hemiplegia, left facial droop Current Medications: Current Medications Sig/Eduardo Start time Last Medication Dose Route Stop Time Status Admin Acetaminophen 650 MG .STK-MED ONE 06/27 2020 DC PO 06/27 2020 Acetaminophen 650 MG Q6 PRN 06/20 1730 AC 06/27 PO 2142 Albuterol Sulfate 3 ML Q4P PRN 06/20 2200 AC 06/27 INH 1122 Ampicillin Sodium/ 3,000 MG Q6H 06/21 1400 AC 06/28 Sulbactam Sodium IV 0834 Sodium Chloride 100 ML Aspirin 81 MG DAILY 06/21 1000 AC 06/28 PO 0834 Atorvastatin Calcium 80 MG 1700 06/20 1700 AC 06/27 PO 1541 Bisacodyl 10 MG .STK-MED ONE 06/27 1553 DC FL 06/27 1554 Bisacodyl 10 MG Q12P PRN 06/26 1245 AC 06/26 FL 1310 Buprenorphine/ 1 TAB BID 06/21 1000 AC 06/28 Naloxone SL 0834 Cyclosporine 1 GTT Q12 06/20 2200 AC 06/28 OPH 0834 Enoxaparin Sodium 40 MG DAILY 06/21 1000 AC 06/28 SC 0834 Fluoxetine HCl 20 MG DAILY 06/27 1308 AC 06/28 PO 0834 Magnesium Oxide 400 MG DAILY 06/24 1000 AC 06/28 PO 0834 Olanzapine 5 MG AT BEDTIME 06/27 2200 AC 06/27 PO 2141 Pantoprazole Sodium 40 MG DAILY 06/20 1730 AC 06/28 IV 0834 Patient Medication 1 ED .[facility] ONE 06/27 1404 DC Teaching ED 06/27 1405 Assessment/Plan Assessment: 56 -year-old woman with PMH signficant for opiate abuse (on suboxone from 2 yrs ), anxiety, depression, bipolar disorder initially admitted to ICU for new left MCA territory infarct, transferred to general med floor overnight Plan: Left MCA territory infarct * NG tube in place for medications and feeds, swallow eval to be done toda * patient failed swallow eval today, discussed with patient will make arrangements for PEG tube placement * on Aspirin 81mg, atorvastatin 80mg via NG tube * acute rehabilitation if bed is available * Found to have bilateral carotid stenosis and left middle cerebral artery stenosis * ECHO shows normal left ventricular EF at more than 65% * Neurology and vascular on board appreciate their recommendations Aspiration pneumonia: * saturating 93% on 3 L * Continue IV Unasyn 3gm Q6 * Patient has remained afebrile History of opiate abuse on suboxone * Continue Suboxone BID SL History of anxiety/depression/bipolar disorder * fluoxetine and Olanzapine restarted * DVT prophylaxis * ALPS * Lovenox Code Status * Full Code Problem List: 1. CVA (cerebral vascular accident) 2. Aspiration pneumonia Pain Ratin Pain Location: na Pain Goal: Pain 4 or less Pain Plan: current regimen Tomorrow's Labs & Rationales: none required PRECIOUS EVANGELISTA MD 06/28/16 1644: Attending MD Review Statement Attending Statement Attending MD Statement: examined this patient, discuss w/resident/PA/ARCADE TECHNICIAN, agreed w/resident/PA/ARCADE TECHNICIAN, reviewed EMR data (avail) Attending Assessment/Plan: Swallow eval failed. Patient refusing PEG. Will discuss again tomorrow wiht patient and psychiatry regarding goals of care and plan moving forward.
[2016-06-28 12:18] LABS: ABSOLUTE BASOPHIL COUNT 0 /CUMM (0.0-0.2); ABSOLUTE EOSINOPHIL COUNT 0.2 /CUMM (0.0-0.7); ABSOLUTE LYMPH COUNT 2.5 /CUMM (1.2-3.4); ABSOLUTE MONOCYTE COUNT 0.5 /CUMM (0.10-0.60); BASOPHIL % 0.3 % (0.0-2.0); EOSINOPHIL % 2.6 % (0-5); GRANULOCYTE % 48.5 % (42.2-75.2); HEMATOCRIT 36.7 % (37-47); MEAN CORPUSCULAR HGB 32.2 PG (27.0-31.0); MEAN CORPUSCULAR HGB CONC 34.1 G/DL (33.0-37.0); MEAN CORPUSCULAR VOLUME 94.3 FL (81.0-99.0); MEAN PLATELET VOLUME 8.9 FL (7.4-10.4); PLATELET COUNT 208 /CUMM (130-400); RBC DISTRIBUTION WIDTH 13.2 % (11.5-14.5); RED BLOOD CELL CT 3.89 /CUMM (4.20-5.40); WHITE BLOOD CELL COUNT 6.1 /CUMM (4.8-10.8)
[2016-06-28 14:42] VITALS: BP 90/60
[2016-06-28 22:39] VITALS: BP 114/64
--- NOTE | 2016-06-29 01:09 | NUR ---
ALERT AND ORIENTED X 3. VITAL SIGNS STABLE. ON 3L OXYGEN VIA NASAL CANNULA NO DISCOMFORT NOTED TUBE FEED RUNNING AT 50ML/HR.
[2016-06-29 06:20] VITALS: BP 122/64
--- NOTE | 2016-06-29 07:24 | PN- Housestaff ---
FLACA JACKSON 06/29/16 0723: Subjective Follow-up For: CVA B/L carotid stenosis Depression Subjective: een and examined patient. Explained the need for peg tube placement . She is agreeable to the procedure. Continues to be dysarthric. Denies difficulty breathing, abdominal pain, fever, chills. Review of Systems Constitutional: Denies: chills, diaphoresis, fever, malaise, weakness, unexplained weight loss. Cardiovascular: Denies: chest pain, edema, orthopena, palpitations, peripheral edema, syncope. Respiratory: Denies: cough, hemoptysis, orthopnea, short of breath, sputum production, stridor, wheezing. Objective Last 24 Hrs of Vital Signs/I&O Vital Signs Date Time Temp Pulse Resp B/P Pulse O2 O2 Flow FiO2 Ox Delivery Rate 06/29 0833 92 Nasal 3.0L Cannula 06/29 0620 98.9 72 20 122/64 93 Nasal Cannula 06/29 0000 Nasal 3.0L Cannula 06/28 2239 99.4 74 22 114/64 93 Nasal 3.0L Cannula 06/28 1600 Nasal 3.0L Cannula 06/28 1442 98.1 74 18 90/60 97 Room Air 06/28 1052 93 Nasal 3.0L Cannula Intake & Output 06/29 1600 06/29 0800 06/29 0000 Intake Total 550 300 Output Total Balance 550 300 Intake, Other 550 Intake, Tube 300 Feeding Physical Exam General Appearance: Alert, Oriented X3, Cooperative, No Acute Distress Cardiovascular: Normal S1, Normal S2 Lungs: Normal Air Movement Abdomen: Normal Bowel Sounds, Soft, No Tenderness Neurological: dense right side hemiplegia Current Medications: Current Medications Sig/Eduardo Start time Last Medication Dose Route Stop Time Status Admin Acetaminophen 650 MG Q6 PRN 06/20 1730 AC 06/27 PO 2142 Albuterol Sulfate 3 ML Q4P PRN 06/20 2200 AC 06/27 INH 1122 Ampicillin Sodium/ 3,000 MG Q6H 06/21 1400 DC 06/28 Sulbactam Sodium IV 2046 Sodium Chloride 100 ML Aspirin 81 MG DAILY 06/21 1000 AC 06/28 PO 0834 Atorvastatin Calcium 80 MG 1700 06/20 1700 AC 06/28 PO 1700 Bisacodyl 10 MG Q12P PRN 06/26 1245 AC 06/26 DC 1310 Buprenorphine/ 1 TAB BID 06/21 1000 AC 06/28 Naloxone SL 2238 Cyclosporine 1 GTT Q12 06/20 2200 AC 06/29 OPH 0914 Enoxaparin Sodium 40 MG DAILY 06/21 1000 AC 06/29 SC 0914 Fluoxetine HCl 20 MG DAILY 06/27 1308 AC 06/28 PO 0834 Magnesium Oxide 400 MG DAILY 06/24 1000 AC 06/28 PO 0834 Olanzapine 5 MG AT BEDTIME 06/27 2200 AC 06/28 PO 2238 Pantoprazole Sodium 40 MG DAILY 06/20 1730 AC 06/29 IV 0914 Patient Medication 1 ED .[facility] ONE 06/28 1421 [place] Teaching ED 06/28 1422 Last 24 Hrs of Lab/Edgar Results Last 24 Hrs of Labs/Mics: Laboratory Tests 06/28/16 1120: Anion Gap 9, Estimated GFR > 60, BUN/Creatinine Ratio 28.3 H, CBC w Diff NO MAN DIFF REQ, RBC 3.89 L, MCV 94.3, MCH 32.2 H, RDW 13.2, MPV 8.9, Gran % 48.5, Lymphocytes % 41.2, Monocytes % 7.4, Eosinophils % 2.6, Basophils % 0.3, Absolute Granulocytes 3.0, Absolute Lymphocytes 2.5, Absolute Monocytes 0.5, Absolute Eosinophils 0.2, Absolute Basophils 0, PUBS MCHC 34.1 Assessment/Plan Assessment: 56 -year-old woman with PMH signficant for opiate abuse (on suboxone from 2 yrs ), anxiety, depression, bipolar disorder initially admitted to ICU for new left MCA territory infarct, transferred to general med floor overnight Plan: Left MCA territory infarct * GI consult obtained for PEG to placement today. * NG was displaced this morning, will obtain CXR to assess placement * on Aspirin 81mg, atorvastatin 80mg via NG tube * acute rehabilitation if bed is available * Found to have bilateral carotid stenosis and left middle cerebral artery stenosis * ECHO shows normal left ventricular EF at more than 65% * Neurology and vascular on board appreciate their recommendations Aspiration pneumonia: * saturating 93% on 3 L * Continue IV Unasyn 3gm Q6 * Patient has remained afebrile History of opiate abuse on suboxone * Continue Suboxone BID SL History of anxiety/depression/bipolar disorder * fluoxetine and Olanzapine restarted DVT prophylaxis * ALPS * Lovenox Code Status * Full Code Problem List: 1. CVA (cerebral vascular accident) 2. Aspiration pneumonia Pain Ratin Pain Location: not applicable Pain Goal: Pain 4 or less Pain Plan: current regimen Tomorrow's Labs & Rationales: On tube feeds will obtain BeP and phosphorus will be status post PEG tube placement will obtain CBC PRECIOUS EVANGELISTA MD 06/29/16 4169: Attending MD Review Statement Attending Statement Attending MD Statement: examined this patient, discuss w/resident/PA/RIPENING ROOM HAND, agreed w/resident/PA/RIPENING ROOM HAND, reviewed EMR data (avail) Attending Assessment/Plan: 56F PMH opiate abuse (on Suboxone), anxiety/depression/bipolar disorder admitted for left MCA acute stroke with right sided hemiparesis who was not a candidate for tPA due to time frame of symptoms. Patient is non-verbal but understands when spoken to and can nod and shake her head. Still having right sided hemiparesis but able to walk with PT today with assistance on right side. NG tube in place with tube feeds running. Failed swallow evaluation. 1. Left MCA acute stroke 2. Right sided hemiparesis 3. Unable to swallow 4. Depression Plan - Continue on general medicine - Stop tube feeds - PEG placement by GI tomorrow - Continue ASA, statin - Continue home medications- - Continue to work with PT - After PEG placed, will monitor for 24 hours then can be discharge to acute rehab - Continue to follow psychiatry recommendations for depression and anxiety
--- NOTE | 2016-06-29 10:02 | RADIOLOGY REPORT ---
EXAMINATION: XR PORTABLE CHEST CLINICAL INFORMATION: Aspiration risk. NG tube displaced. COMPARISON: 06/24/2016 TECHNIQUE: Portable view of the chest was obtained. FINDINGS: The enteric tube is seen coursing below the diaphragm. The lungs are well expanded. No consolidation, edema, or effusion. The previous right basilar appears improved. No pneumothorax. The cardiomediastinal silhouette is within normal limits. IMPRESSION: Improvement of the previous right basilar opacity. No focal consolidation.
--- NOTE | 2016-06-29 10:04 | Cons- Gastroenterology ---
See Addendum General Information and HPI Consulting Request Date of Consult: 06/29/16 Requested By: PRECIOUS EVANGELISTA MD Reason for Consult: Called by hopitalist service to assess patient for PEG, HD # 10, post large L MCA CVA, felt to be thrombotic in nature. Source of Information: patient, old records Exam Limitations: expressive aphasia History of Present Illness: 56-year-old right-handed white female, HTN, non-DM, non-HLD, long history of cigarette smoking, ex-IVDA, illegal drug use. She is on Suboxone, anxiety, depression, bipolar disorder, admitted to [facility] 06/20/2016 with right -sided weakness, right facial droop, dysphagia, and expressive aphasia, ultimately found to have large left MCA CVA. (Please refer to imaging studies below). She has been seen by numerous consultants, including medicine, neurology, cardiology, vascular, and psychiatry. She failed a bedside swallow evaluation in the ER and most recently, failed a speech swallow evaluation on , at which point she was felt to be high risk for aspiration. She communicates by nodding and shaking her head, due to the expressive aphasia. She has been maintained with NG tube feeds over the past week. She treated a course of Unasyn 3g IVPB Q6h on 06/28/2016, for aspiration pneumonia. There is some nausea and vomiting, without hematemesis. She has had looser stool since admission (on antibiotics), without diarrhea, constipation, femoral pain, fevers , active bleeding, melena, or symptoms of UTI. There is a mild cough without any chest pain or shortness of breath. She had a remote laparoscopic appendectomy more than 10 years ago, otherwise no abdominal surgery. Uncertain as to HIV status or if previous history of viral hepatitis. According to the chart, per family members and stated there was no previous coronary or valvular disease, nor any arrhythmia. No further history is available because of the patient's clinical conditions. Family history is unobtainable. 06/20/2016: EKG- NSR @ 75, normal axis, normal intervals, borderline t wave abnl antlat. 06/21/2016: Carotid doppler- B/L hemodynamically significant stenosis 50-79%, involoving both ICA, L > R. 06/21/2016: Echocardiogram- LVEF > 65%, tr MR, mild TR. 06/22/2016: CTA neck- near occlusion L ICA with 2nd high grade grade stenosis & partial occlusion L MCA, 75% stenosis R vertebral artery. 06/22/2016: MRI head w/o leatha- acute L MCA infarct with mild mass effect. 06/23/2016: MRA head- near occlusive thrombus L MCA & moderate stenosis R MCA. 06/24/2016: CXR- infiltrate medial aspect R lung base, w/o change. No new infiltrate, effusion, or CHF.) Allergies/Medications Allergies: Coded Allergies: azithromycin (TREMORS 06/20/16) erythromycin base (TREMORS 06/20/16) Home Med List: Buprenorphine HCl/Naloxone HCl (Suboxone 8 MG-2 MG Sl Film) 8 MG-2 MG FILM 1 STR SL BID MENTAL HEALTH (Reported) Cholecalciferol (Vitamin D3) (Vitamin D) 2,000 UNIT CAPSULE 1 CAP PO DAILY SUPPLEMENT (Reported) Cyclosporine (Restasis) 0.05 % DROPERETTE 1 GTT OPH BID BOTH EYES (Reported) Fluoxetine HCl 20 MG CAPSULE 1 CAP PO DAILY MENTAL HEALTH (Reported) Olanzapine 5 MG TABLET 1 TAB PO QPM MENTAL HEALTH (Reported) Current Medications: Current Medications Sig/Eduardo Start time Last Medication Dose Route Stop Time Status Admin Acetaminophen 650 MG Q6 PRN 06/20 1730 AC 06/27 PO 2142 Albuterol Sulfate 3 ML Q4P PRN 06/20 2200 AC 06/27 INH 1122 Ampicillin Sodium/ 3,000 MG Q6H 06/21 1400 DC 06/28 Sulbactam Sodium IV 2046 Sodium Chloride 100 ML Aspirin 81 MG DAILY 06/21 1000 AC 06/28 PO 0834 Atorvastatin Calcium 80 MG 1700 06/20 1700 AC 06/28 PO 1700 Bisacodyl 10 MG Q12P PRN 06/26 1245 AC 06/26 AR 1310 Buprenorphine/ 1 TAB BID 06/21 1000 AC 06/28 Naloxone SL 2238 Cyclosporine 1 GTT Q12 06/20 2200 AC 06/29 OPH 0914 Dextrose/Sodium 1,000 ML Q13H 06/30 0000 AC Chloride IV 06/30 1259 Enoxaparin Sodium 40 MG DAILY 06/21 1000 DC 06/29 SC 0914 Fluoxetine HCl 20 MG DAILY 06/27 1308 AC 06/28 PO 0834 Magnesium Oxide 400 MG DAILY 12/30 1000 AC 06/28 PO 0834 Olanzapine 5 MG AT BEDTIME 06/27 2200 AC 06/28 PO 2238 Pantoprazole Sodium 40 MG DAILY 06/20 1730 AC 06/29 IV 0914 Patient Medication 1 ED .[facility] ONE 06/29 1305 CO Teaching ED 06/29 1306 Past History Travel History Traveled to [place] past 21 day No Medical History Blood Transfusion Hx: No Neurological: CVA (06/20/12- L MCA CVA) EENT: NONE Cardiovascular: hypertension Respiratory: COPD (?), pneumonia (aspiration) Gastrointestinal: NONE Hepatic: NONE Renal: NONE Musculoskeletal: NONE Psychiatric: anxiety, bipolar disease, depression, opioid dependence, substance abuse (ex-IVDA, on Suboxone) Endocrine: NONE Blood Disorders: NONE Cancer(s): NONE 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 Home Who Do You Live With? self Services at Home: None Primary Language: Maori Smoking Status: Current Everyday Smoker ETOH Use: denies use Illicit Drug Use: denies illicit drug use (ex-IVDA; on Suboxone), clean for 2 years Living Will? unknown Power of Patient Service Rep/HCP? unknown Other Social History: Single. 1 daughter is listed in the computer (Jerilyn Rodgers). Longtime cigarette smoke. No EtOH. Ex-IVDA. clean for 2 years. On Suboxone. 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 Employment History Employment: unknown ECHO Results (as available) Date of last Echo 06/21/16 EF% 65 Review of Systems Review of Systems: Full 14 point review of systems otherwise as per HPI. Difficult to obtain in view of expressive aphasia, post CVA. Review of Systems Constitutional: Reports: weakness (on right post CVA). Denies: chills, diaphoresis, fever, malaise, unexplained weight loss. EENTM: Denies: blurred vision, double vision, visual changes, eye pain, eye drainage, eye tearing, icterus, ear discharge, ear pain, ear redness, hearing changes, nasal congestion, epistaxis, nasal pain, throat pain, throat swelling, mouth pain, tooth pain. Cardiovascular: Denies: chest pain, edema, orthopena, palpitations, peripheral edema, syncope. Respiratory: Reports: cough. Denies: hemoptysis, orthopnea, short of breath, sputum production, stridor, wheezing. GI: Denies: no symptoms (dysphagia), abdominal pain, bloating, constipation, diarrhea, distention, bowel incontinence, melena, nausea, bloody stool, changes in stool, vomiting, steatorrhea. Genitourinary: Denies: discharge, dysuria, frequency, hematuria, hesitation, nocturia, pain, urgency. Musculoskeletal: Denies: back pain, gout, joint pain, joint swelling, muscle pain, muscle stiffness, neck pain. Skin: Denies: cysts, change in skin color, change in hair/nails, dryness, erythema, jaundice, lesions, lymphangitis, lumps, moles, rash. Neurological/Psychological: Reports: anxiety, depressed (bipolar), emotional problems, unable to move lower ext (R), unable to move upper ext (R), weakness (R). Denies: ataxia, cognitive dysfunction, confusion, dementia, headache, numbness, paresthesia, pre-existing deficit, petit mal seizures, tingling, tremors, tonic-clonic seizures. Hematologic/Endocrine: Denies: bruising, bleeding, polyuria, polydipsia. Immunologic/Allergic: Denies: splenectomy, HIV/AIDS, lymphadenopathy. All Other Systems: Reviewed and Negative Exam & Diagnostic Data Vital Signs and I&O Vital Signs Date Time Temp Pulse Resp B/P Pulse O2 O2 Flow FiO2 Ox Delivery Rate 06/29 0833 92 Nasal 3.0L Cannula 06/29 0620 98.9 72 20 122/64 93 Nasal Cannula 06/29 0000 Nasal 3.0L Cannula 06/28 2239 99.4 74 22 114/64 93 Nasal 3.0L Cannula 06/28 1600 Nasal 3.0L Cannula 06/28 1442 98.1 74 18 90/60 97 Room Air 06/28 1052 93 Nasal 3.0L Cannula Intake & Output 06/29 1600 06/29 0400 06/28 1600 06/28 0400 06/27 1600 06/27 040 Intake Total 469 347 9400 500 1250 680 Output Total Balance 241 125 9391 500 1250 680 Intake, IV 700 150 300 130 Intake, Oral 0 0 Intake, Other 550 200 0 Intake, Tube 300 600 825 400 Feeding Intake, Tube 300 150 125 150 Irrigant Number 3 1 3 5 Bowel Movements Physical Exam: Well-developed, slightly malnourished, chronically ill-appearing female, looking older than her stated age, in no apparent distress. NG tube in place. O2-3L nc. Sclera anicteric. Conjunctiva pink. Oropharynx clear. Slightly dry mucous membranes. No oral thrush. No aphthous ulcers. There is no adenopathy, thyromegaly, or JVD. Carotids 1+ B/L with B/L bruits. No peripheral stigmata of inflammatory bowel disease or chronic liver disease on exam. No CVA tenderness. No spiders on the anterior chest wall. Breast and pelvic exams: deferred for geotechnical intern. Lungs: Few rhonchi on the right, prolonged expiratory phase , without any wheezing. Heart exam: regular rate rhythm, S1 and S2, without any murmur. Abdominal exam: normal bowel sounds, soft belly, nontender, without guarding or rebound. Old scar post lap AP. No mass. No organomegaly. No fluid shift. No pulsatile mass. No epigastric bruit. Digital rectal exam: deferred. Extremities: without C, C, or E. Multiple tattoos. No palpable cords. Distal pulses 1+ bilaterally. Motor RUE 0/5, RLE 0/5 (flaccid on right), LUE/LLE 4-5/ 5. Right facial droop. DTRs 3+ on right, 2+ on left. Mildly upgoing plantar on right. Gag reflex present, but severely diminished. The patient is frustrated from her expressive aphasia. She is able to follow simple commands. She appears alert and oriented x 3, but it is difficult for her to respond in the written form. Results Pertinent Lab Results: Laboratory Tests 06/29 06/28 1014 1120 Chemistry Sodium (137 - 145 mmol/L) 143 Potassium (3.5 - 5.1 mmol/L) 4.1 Chloride (98 - 107 mmol/L) 99 Carbon Dioxide (22 - 30 mmol/L) 35 H Anion Gap (5 - 16) 9 BUN (7 - 17 mg/dL) 17 Creatinine (0.5 - 1.0 mg/dL) 0.6 Estimated GFR (>60 ml/min) > 60 BUN/Creatinine Ratio (7 - 25 %) 28.3 H Coagulation PT (9.4 - 12.5 SEC) 13.2 H INR (0.90 - 1.19) 1.26 H Hematology CBC w Diff NO MAN DIFF REQ WBC (4.8 - 10.8 /CUMM) 6.1 RBC (4.20 - 5.40 /CUMM) 3.89 L Hgb (12.0 - 16.0 G/DL) 12.5 Hct (37 - 47 %) 36.7 L MCV (81.0 - 99.0 FL) 94.3 MCH (27.0 - 31.0 PG) 32.2 H RDW (11.5 - 14.5 %) 13.2 Plt Count (130 - 400 /CUMM) 208 MPV (7.4 - 10.4 FL) 8.9 Gran % (42.2 - 75.2 %) 48.5 Lymphocytes % (20.5 - 51.1 %) 41.2 Monocytes % (1.7 - 9.3 %) 7.4 Eosinophils % (0 - 5 %) 2.6 Basophils % (0.0 - 2.0 %) 0.3 Absolute Granulocytes (1.4 - 6.5 /CUMM) 3.0 Absolute Lymphocytes (1.2 - 3.4 /CUMM) 2.5 Absolute Monocytes (0.10 - 0.60 /CUMM) 0.5 Absolute Eosinophils (0.0 - 0.7 /CUMM) 0.2 Absolute Basophils (0.0 - 0.2 /CUMM) 0 PUBS MCHC (33.0 - 37.0 G/DL) 34.1 06/27 0628 Chemistry Sodium (137 - 145 mmol/L) 141 Potassium (3.5 - 5.1 mmol/L) 4.3 Chloride (98 - 107 mmol/L) 99 Carbon Dioxide (22 - 30 mmol/L) 34 H Anion Gap (5 - 16) 9 BUN (7 - 17 mg/dL) 17 Creatinine (0.5 - 1.0 mg/dL) 0.5 Estimated GFR (>60 ml/min) > 60 BUN/Creatinine Ratio (7 - 25 %) 34.0 H Phosphorus (2.5 - 4.5 mg/dL) 4.6 H Magnesium (1.6 - 2.3 mg/dL) 1.7 Hematology CBC w Diff NO MAN DIFF REQ WBC (4.8 - 10.8 /CUMM) 7.7 RBC (4.20 - 5.40 /CUMM) 4.22 Hgb (12.0 - 16.0 G/DL) 13.4 Hct (37 - 47 %) 39.7 MCV (81.0 - 99.0 FL) 94.1 MCH (27.0 - 31.0 PG) 31.8 H RDW (11.5 - 14.5 %) 13.3 Plt Count (130 - 400 /CUMM) 205 MPV (7.4 - 10.4 FL) 9.1 Gran % (42.2 - 75.2 %) 53.2 Lymphocytes % (20.5 - 51.1 %) 37.7 Monocytes % (1.7 - 9.3 %) 7.5 Eosinophils % (0 - 5 %) 1.3 Basophils % (0.0 - 2.0 %) 0.3 Absolute Granulocytes (1.4 - 6.5 /CUMM) 4.1 Absolute Lymphocytes (1.2 - 3.4 /CUMM) 2.9 Absolute Monocytes (0.10 - 0.60 /CUMM) 0.6 Absolute Eosinophils (0.0 - 0.7 /CUMM) 0.1 Absolute Basophils (0.0 - 0.2 /CUMM) 0 PUBS MCHC (33.0 - 37.0 G/DL) 33.7 Imaging/Other Studies: 06/20/2016: EKG- NSR @ 75, normal axis, normal intervals, borderline t wave abnl antlat. 06/21/2016: Carotid doppler- B/L hemodynamically significant stenosis 50-79%, involoving both ICA, L > R. 06/21/2016: Echocardiogram- LVEF > 65%, tr MR, mild TR. 06/22/2016: CTA neck- near occlusion L ICA with 2nd high grade grade stenosis & partial occlusion L MCA, 75% stenosis R vertebral artery. 06/22/2016: MRI head w/o leatha- acute L MCA infarct with mild mass effect. 06/23/2016: MRA head- near occlusive thrombus L MCA & moderate stenosis R MCA. 06/24/2016: CXR- infiltrate medial aspect R lung base, w/o change. No new infiltrate, effusion, or CHF. Assessment/Plan Assessment/Recommendations: 56-year-old right-handed white female, HTN, non-DM, non-HLD, long history of cigarette smoking, ex-IVDA, illegal drug use. She is on Suboxone, anxiety, depression, bipolar disorder, admitted to [facility] 06/20/2016 with right -sided weakness, right facial droop, dysphagia, and expressive aphasia, ultimately found to have large left MCA CVA. (Please refer to imaging studies below). She has been seen by numerous consultants, including medicine, neurology, cardiology, vascular, and psychiatry. She failed a bedside swallow evaluation in the ER and most recently, failed a speech swallow evaluation on , at which point she was felt to be high risk for aspiration. She communicates by nodding and shaking her head, due to the expressive aphasia. She has been maintained with NG tube feeds over the past week. She was put on Unasyn for aspiration pneumonia. There is some nausea and vomiting, without hematemesis. She has had looser stool since admission (on antibiotics), without diarrhea, constipation, femoral pain, fevers, active bleeding, melena, or symptoms of UTI. There is a mild cough without any chest pain or shortness of breath. She had a remote laparoscopic appendectomy more than 10 years ago, otherwise no abdominal surgery. Uncertain as to HIV status or if previous history of viral hepatitis. According to the chart, per family members and stated there was no previous coronary or valvular disease, nor any arrhythmia. No further history is available because of the patient's clinical conditions. Family history is unobtainable. 06/20/2016: EKG- NSR @ 75, normal axis, normal intervals, borderline t wave abnl antlat. 06/21/2016: Carotid doppler- B/L hemodynamically significant stenosis 50-79%, involoving both ICA, L > R. 06/21/2016: Echocardiogram- LVEF > 65%, tr MR, mild TR. 06/22/2016: CTA neck- near occlusion L ICA with 2nd high grade grade stenosis & partial occlusion L MCA, 75% stenosis R vertebral artery. 06/22/2016: MRI head w/o leatha- acute L MCA infarct with mild mass effect. 06/23/2016: MRA head- near occlusive thrombus L MCA & moderate stenosis R MCA. 06/24/2016: CXR- infiltrate medial aspect R lung base, w/o change. No new infiltrate, effusion, or CHF.) *Unfortunately, the patient has a dense left MCA CVA, hospital day #10. She has failed multiple swallow evaluations, most recently on 06/28/2016, where speech pathology felt she was high risk for aspiration. She is currently getting NG tube feedings. Although she has an expressive aphasia and has difficulty with written communication, she has indicated that she wants a feeding tube placed. She appears to be A&Ox3. The risks and benefits of PEG feeding tube placement were discussed with the patient, and she wishes to proceed. These include the risks of bleeding, perforation, catheter going into an adjacent organ, aspiration, sedation, possible prophylactic intubation, possible missed lesion, etc. She was also told that if her swallowing improves, the PEG can always be removed. Informed consent for PEG was obtained from the patient. SUGGEST: May continue NG tube feeds for now (Jevity 1.2 @ 50 cc/hr), then NPO after 11:59 p.m. on 06/29/2016, for EGD with PEG placement on 06/30/2016, either by myself or by one of my partners, depending on logistics. The patient will need Ancef 1g IVPB to be hung in the GI Department preop. Please hold 06/30/2016 Lovenox dose. Check prealbumin. Follow up with nutrition department, however the note of 06/29/2016 states that her current Jevity 1.2 TF @ 50 cc/hr via NGT and be given via PEG. Check with nutrition regarding flushing schedule. Maintain aspiration precautions. Keep patient upright for all feeds. IV Unasyn 3g Q6h for aspiration pneumonia has been completed as of 06/28/2016, as per medical team. Follow-up with medicine, cardiology, neurology, vascular, and psychiatry, as per routine. The above findings and recommendations were previously discussed with the medical house staff earlier today. Problem List: 1. Dysphagia 2. Aspiration pneumonia 3. Malnutrition 4. CVA (cerebral vascular accident) Copies To: JEAN CARLOS SUN,PRECIOUS; ZULAY SUN,ARACELI; LAVELL SUN,WAYNE Hernandez; THADDEUS SUN,TINO; MITCH SUN,ASHLEY; ISAIAS SUN,PATIENCE Consult Acknowledgment - Thank you for your consult request.
[2016-06-29 10:43] LABS: PT 13.2 SEC (9.4-12.5)
--- NOTE | 2016-06-29 12:13 | NUR ---
HELD PT'S PO MEDS PER MD THAYER, MARIANO PEG TUBE PLACEMENT TODAY. WILL CONTINUE TO MONITOR.
--- NOTE | 2016-06-29 14:19 | RADIOLOGY REPORT ---
EXAMINATION: XR ABDOMEN CLINICAL INDICATION: NG tube placement COMPARISON: None. TECHNIQUE: Portable AP supine view of the abdomen FINDINGS: Enteric tube extends into the stomach. The side port appears distal to the gastroesophageal junction. The bowel gas pattern is unremarkable. The lung bases are clear. Mild degenerative changes of the spine. IMPRESSION: Enteric tube extending into the stomach.
[2016-06-29 14:40] VITALS: BP 118/69
--- NOTE | 2016-06-29 16:48 | Transfer of Care Summary ---
Hospital Course Course Hospital Course: Patient is a 56 YO F with H signficant for opiate abuse (on suboxone from 2 yrs), anxiety, depression, bipolar disorder came to ER with weakness on right upper and lower extremity with aphasia. She is able to say her name by the time she came to ER eventually became severely dyarthric. she failed bedside swallow evaluation in the ER. CT scan in the ER dosent reveal any acute pathology. She is admitted to ICU for neurochecks every 1 hr. Left MCA infarct with near occulsion of left ICA stenosis Patient presented with right sided weakness, initially CT was negative and she failed swallow evaluation. She was admitted to ICU for 1hr neuro checks. NG tube is placed for medications in ER. Eventually MRI showed left MCA infarct with mild mass effect. Initially kept on D51/2 NS but as she failed swallow evaluation several times, she was started on tube feeds. She received 300mg aspirin in ER [place], then 81mg daily given through NG tube. Started on atorvastatin 80mg and ECHO is done which shows an EF of 65%. Carotid ultrasound demonstrated left ICA near complete occlusion. Followed by my CTA neck shows Mixed density atherosclerotic plaque at the left carotid bifurcation leads to a "near occlusion ". There is a second high-grade stenosis at the genu of the left cavernous carotid artery due to eccentric lipid density plaque and there is also acute at least partial occlusion of the left MCA. Vascular surgery is consulted and they would like to follow as an outpatient as there is no indication for urgent intervention. Physical therapy is able to mobilize her after 2 days and recommended acute rehabilitation. Suspected Aspiration pneumonia She had significant Cough with whitish phelgm production. She was satuarting in 90's initially with increased oxygen demand form 2L to 5L NC. She was found to have temparature of 100 wirh white count o 13.5 next day. A 7 day course of unasyn 3gm Q6 is given. She remained stable respiratory brown after that. History of opiate abuse on suboxone She was Continued on Suboxone BID SL. History of anxiety/depression/bipolar disorder * On fluoxetine and Olanzapine at home * Currently holding them On 24 june she was transfered to general medicine floor for further management. Complications: NONE Significant Procedures: NONE Assessment/Plan: as above.
[2016-06-29 22:13] VITALS: BP 108/60
--- NOTE | 2016-06-29 23:08 | NUR ---
PATIENT IS ALERT AND ORIENTED. VITAL SIGNS STABLE. ON 3L O2 VIA NASAL CANNULA HAS DIFFICULTY EXPELLING SPUTUM. SUCTIONED PRN. NO DISTRESS NOTED AT THIS TIME. WILL CONTINUE TO MONITOR
[2016-06-30 06:27] VITALS: BP 110/64
--- NOTE | 2016-06-30 07:44 | PN- Housestaff ---
FLACA JACKSON 06/30/16 0743: Subjective Follow-up For: CVA B/L carotid stenosis Depression Subjective: Seen and examined patient. offers no complaints at this time. Has noticeable whitish lesions on her tongue. Review of Systems Constitutional: Reports: see HPI. Objective Last 24 Hrs of Vital Signs/I&O Vital Signs Date Time Temp Pulse Resp B/P Pulse O2 O2 Flow FiO2 Ox Delivery Rate 06/30 08 Nasal 3.0L Cannula 06/30 0627 98.5 73 18 110/64 94 Nasal Cannula 06/30 0300 99.0 06/30 0000 Nasal 3.0L Cannula 06/29 2213 99.2 75 20 108/60 94 Nasal 3.0L Cannula 06/29 1600 Nasal 3.0L Cannula 06/29 1440 97.7 69 20 118/69 95 Intake & Output 06/30 1600 06/30 0806/30 0000 Intake Total 525 Output Total 0 Balance 525 Intake, IV 525 Number 0 Bowel Movements Output, Stool 0 Physical Exam General Appearance: Alert, Oriented X3, Cooperative, No Acute Distress Cardiovascular: Regular Rate, Normal S1, Normal S2 Lungs: Normal Air Movement Neurological: dense right hemiplegia Assessment/Plan Assessment: 56 -year-old woman with PMH signficant for opiate abuse (on suboxone from 2 yrs ), anxiety, depression, bipolar disorder initially admitted to ICU for new left MCA territory infarct, continues to have neurological deficits including dysphagia and right dense hemiplegia. Will be requiring PEG tube placement as she has failed swallow eval multiple times. Plan: Left MCA territory infarct * GI unable to schedule patient today for PEG tube placement and will be done tomorrow, keep her nothing by mouth after midnight tonight * on Aspirin 81mg, atorvastatin 80mg via NG tube * acute rehabilitation in stable * Found to have more dynamically significant bilateral carotid stenosis and left middle cerebral artery stenosis, follow-up with vascular as upon discharge * ECHO shows normal left ventricular EF at more than 65% * Neurology and vascular on board appreciate their recommendations Aspiration pneumonia: * saturating 93% on 3 L * We'll follow off antibiotics for now * Patient has remained afebrile History of opiate abuse on suboxone * Continue Suboxone BID SL History of anxiety/depression/bipolar disorder * fluoxetine and Olanzapine restarted DVT prophylaxis * ALPS * Lovenox Code Status * Full Code Problem List: 1. Dysphagia 2. CVA (cerebral vascular accident) 3. Aspiration pneumonia Pain Ratin Pain Location: Not applicable Pain Goal: Pain 4 or less Pain Plan: Current regimen Tomorrow's Labs & Rationales: BEP to monitor electrolytes PRECIOUS EVANGELISTA MD 06/30/16 1325: Attending MD Review Statement Attending Statement Attending MD Statement: examined this patient, discuss w/resident/PA/TRANSITION MGR, agreed w/resident/PA/TRANSITION MGR, reviewed EMR data (avail) Attending Assessment/Plan: 56F PMH opiate abuse (on Suboxone), anxiety/depression/bipolar disorder admitted for left MCA acute stroke with right sided hemiparesis who was not a candidate for tPA due to time frame of symptoms. Patient is non-verbal but understands when spoken to and can nod and shake her head. Still having right sided hemiparesis but able to walk with PT today with assistance on right side. NG tube in place with tube feeds running. Failed swallow evaluation. 1. Left MCA acute stroke 2. Right sided hemiparesis 3. Unable to swallow 4. Depression Plan - Continue on general medicine - Stop tube feeds - PEG placement by GI tomorrow - Continue ASA, statin - Continue home medications- - Continue to work with PT - After PEG placed, will monitor for 24 hours then can be discharge to acute rehab - Continue to follow psychiatry recommendations for depression and anxiety
[2016-06-30 08:04] LABS: ABSOLUTE BASOPHIL COUNT 0 /CUMM (0.0-0.2); ABSOLUTE EOSINOPHIL COUNT 0.2 /CUMM (0.0-0.7); ABSOLUTE GRANULOCYTE CT 4.8 /CUMM (1.4-6.5); ABSOLUTE LYMPH COUNT 2.4 /CUMM (1.2-3.4); ABSOLUTE MONOCYTE COUNT 0.5 /CUMM (0.10-0.60); BASOPHIL % 0.4 % (0.0-2.0); EOSINOPHIL % 2.2 % (0-5); GRANULOCYTE % 60.6 % (42.2-75.2); HEMATOCRIT 38.3 % (37-47); MEAN CORPUSCULAR HGB 31.7 PG (27.0-31.0); MEAN CORPUSCULAR HGB CONC 33.9 G/DL (33.0-37.0); MEAN CORPUSCULAR VOLUME 93.7 FL (81.0-99.0); MEAN PLATELET VOLUME 8.9 FL (7.4-10.4); PLATELET COUNT 219 /CUMM (130-400); RBC DISTRIBUTION WIDTH 12.9 % (11.5-14.5); RED BLOOD CELL CT 4.09 /CUMM (4.20-5.40); WHITE BLOOD CELL COUNT 7.9 /CUMM (4.8-10.8)
--- NOTE | 2016-06-30 10:27 | NUR ---
SPEECH THERAPY: PT CURRENTLY NPO FOR PEG TUBE PLACEMENT. ST CONTINUE TO FOLLOW FOR SPEECH/LANGUAGE EVALUATION AND DYSPHAGIA TX.
[2016-06-30 13:54] VITALS: BP 112/60
[2016-06-30 14:00] VITALS: BP 112/60
--- NOTE | 2016-06-30 14:34 | PN- Cardiology ---
Subjective Subjective: Clinical status ( left MCA stroke). Precludes her from being able to give any history. Has also failed multiple swallowing evaluations. GI consultation with recommendations reviewed. Objective Vital Signs and I&Os Vital Signs Date Time Temp Pulse Resp B/P Pulse O2 O2 Flow FiO2 Ox Delivery Rate 06/30 1400 97.7 67 18 112/60 94 Room Air 06/30 1354 97.7 67 18 112/60 94 Room Air 06/30 0800 Nasal 3.0L Cannula 06/30 0627 98.5 73 18 110/64 94 Nasal Cannula 06/30 0300 99.0 06/30 0000 Nasal 3.0L Cannula 06/29 2213 99.2 75 20 108/60 94 Nasal 3.0L Cannula 06/29 1600 Nasal 3.0L Cannula 06/29 1440 97.7 69 20 118/69 95 Intake & Output 06/30 1600 06/30 0800 06/30 0000 06/29 1600 06/29 0800 06/29 0000 Intake Total 500 525 75 550 300 Output Total 0 0 Balance 500 525 75 550 300 Intake, IV 300 525 0 Intake, Oral 0 0 Intake, Other 550 Intake, Tube 200 75 300 Feeding Number 0 0 0 Bowel Movements Output, Stool 0 Output, Urine 0 Physical Exam: Lungs: Decreased breath sounds bilaterally with scattered rhonchi. Heart: S1, S2 with no obvious murmur, gallop, or rub appreciated, although difficult to hear secondary to rhonchi. PMI fifth ICS at [facility]. Abdomen: Soft, nontender, positive bowel sounds. Extremities: No edema. Neurological: Right facial droop and right dense hemiplegia. Assessment/Plan Assessment/Plan Stroke syndrome in this middle-aged female with a long-standing history of tobacco use, dyslipidemia, carotid artery disease with CT angiogram and MRA of the neck as previously reported, and no echocardiographic or cardiac monitoring findings to suggest a cardioembolic source. Her carotid artery disease is significant and the likely the culprit for her presentation. Vascular surgery has reviewed the CTA/MRA of the neck findings and the plan is for continued conservative management at this juncture. Continue present regimen. Continue telemetry? Not applicable
[2016-06-30 23:04] VITALS: BP 112/56
--- NOTE | 2016-07-01 00:14 | NUR ---
PATIENT APPEARS TO BE ALERT AND ORIENTED. VITAL SIGNS STABLE. ON 3L O2 VIA NC NO DISCOMFORT NOTED. PATIENT RESTING COMFORTABLY PATIENT HAS DIFFICULTY EXPELLING SPUTUM. SUCTIONING PRN. WILL CONTINUE TO MONITOR
[2016-07-01 06:00] VITALS: BP 126/70
--- NOTE | 2016-07-01 07:25 | PN- Housestaff ---
HILLIVISFLACA SANFORD 07/01/16 0725: Subjective Follow-up For: CVA B/L carotid stenosis Depression Subjective: Seen and examined patient. Offers no complaints again. However does seem a little more weak today continues to have dense right hemiplegia. Complains of right foot pain Review of Systems Constitutional: Denies: chills, diaphoresis, fever, malaise, weakness, unexplained weight loss. Cardiovascular: Denies: chest pain, edema, orthopena, palpitations, peripheral edema, syncope. Respiratory: Denies: cough, hemoptysis, orthopnea, short of breath, sputum production, stridor, wheezing. Genitourinary: Reports: dysuria. Objective Last 24 Hrs of Vital Signs/I&O Vital Signs Date Time Temp Pulse Resp B/P Pulse O2 O2 Flow FiO2 Ox Delivery Rate 07/01 06 98.1 72 18 126/70 91 Nasal Cannula 06/30 2304 98.0 79 18 112/56 90 Nasal Cannula 06/30 2116 92 Nasal 2.0L Cannula 06/30 1600 Nasal 3.0L Cannula 06/30 1400 97.7 67 18 112/60 94 Room Air 06/30 1354 97.7 67 18 112/60 94 Room Air Intake & Output 07/01 1600 07/01 0800 07/01 0000 Intake Total 600 Output Total Balance 600 Intake, IV 600 Number 0 Bowel Movements Physical Exam General Appearance: Alert, Cooperative, No Acute Distress Cardiovascular: Regular Rate, Normal S1, Normal S2 Lungs: Normal Air Movement Current Medications: Current Medications Sig/Eduardo Start time Last Medication Dose Route Stop Time Status Admin Acetaminophen 650 MG Q6 PRN 06/20 1730 AC 06/27 PO 2142 Albuterol Sulfate 3 ML Q4P PRN 06/20 2200 AC 06/27 INH 1122 Aspirin 81 MG DAILY 06/21 1000 AC 06/30 PO 0827 Atorvastatin Calcium 80 MG 1700 06/20 1700 AC 06/30 PO 1757 Bisacodyl 10 MG Q12P PRN 06/26 1245 AC 06/26 GA 1310 Buprenorphine/ 1 TAB BID 06/21 1000 AC 06/30 Naloxone SL 2206 Cefazolin Sodium 1,000 MG ONCE ONE 07/01 1200 UNVr IV 07/01 1201 Cefazolin Sodium 1,000 MG ONCE ONE 06/30 1300 CAN IV 06/30 1301 Cyclosporine 1 GTT Q12 06/20 2200 AC 06/30 OPH 2206 Dextrose/Sodium 1,000 ML Q13H 07/01 0000 AC 07/01 Chloride IV 07/01 1259 0025 Dextrose/Sodium 1,000 ML Q13H 06/30 0000 DC 06/30 Chloride IV 06/30 1259 0048 Fluconazole 100 MG DAILY 07/01 1000 CAN PO Fluconazole 200 MG ONCE ONE 06/30 1115 CAN PO 06/30 1116 Fluconazole 100 MG DAILY 06/30 1056 DC PO Fluoxetine HCl 20 MG DAILY 06/27 1308 AC 06/30 PO 0828 Magnesium Oxide 400 MG DAILY 06/24 1000 AC 06/30 PO 0827 Nystatin 5 ML 4 TIMES/DAY 06/30 2330 AC PO Olanzapine 5 MG AT BEDTIME 06/27 2200 AC 06/30 PO 220 Pantoprazole Sodium 40 MG DAILY 06/20 1730 AC 06/30 IV 0827 Patient Medication 1 ED ONE ONE 06/30 1430 DC Teaching ED 06/30 1431 Last 24 Hrs of Lab/Edgar Results Last 24 Hrs of Labs/Mics: Laboratory Tests 07/01/16 0600: Anion Gap 14, Estimated GFR > 60, BUN/Creatinine Ratio 23.3, Phosphorus 5.1 H, Magnesium 1.6 Assessment/Plan Assessment: 56 -year-old woman with PMH signficant for opiate abuse (on suboxone from 2 yrs ), anxiety, depression, bipolar disorder initially admitted to ICU for new left MCA territory infarct outside timeframe for TPA, continues to have neurological deficits including dysphagia and right dense hemiplegia. Nothing by mouth currently for tube placement today Plan: Left MCA territory infarct * PEG tube placemen * on Aspirin 81mg, atorvastatin 80mg via NG tube * acute rehabilitation in stable * Found to have more dynamically significant bilateral carotid stenosis and left middle cerebral artery stenosis, conservative management at this time. Follow- up with vascular as upon discharge * ECHO shows normal left ventricular EF at more than 65%,no echocardiographic or cardiac monitoring findings to suggest a cardioembolic source. * Neurology, cardiology and vascular on board appreciate their recommendations * Aspiration pneumonia: * saturating 93% on 3 L * We'll follow off antibiotics for now * Patient has remained afebrile History of opiate abuse on suboxone * Continue Suboxone BID SL History of anxiety/depression/bipolar disorder * fluoxetine and Olanzapine restarted DVT prophylaxis * ALPS * Lovenox Code Status * Full Code Problem List: 1. CVA (cerebral vascular accident) 2. Aspiration pneumonia Pain Ratin Pain Location: Not applicable Pain Goal: Pain 4 or less Pain Plan: Current regimen Tomorrow's Labs & Rationales: On tube feeds will obtain BEP and phosphorus. Status post PEG tube placement will obtain CBC PRECIOUS EVANGELISTA MD 07/01/16 1238: Attending MD Review Statement Attending Statement Attending MD Statement: examined this patient, discuss w/resident/PA/ELECTROPHYSIOLOGY NURSE PRACTITIONER, agreed w/resident/PA/ELECTROPHYSIOLOGY NURSE PRACTITIONER, reviewed EMR data (avail) Attending Assessment/Plan: 56F PMH opiate abuse (on Suboxone), anxiety/depression/bipolar disorder admitted for left MCA acute stroke with right sided hemiparesis who was not a candidate for tPA due to time frame of symptoms. Patient is non-verbal but understands when spoken to and can nod and shake her head. Still having right sided hemiparesis but able to walk with PT today with assistance on right side. NG tube in place with tube feeds running. Failed swallow evaluation. 1. Left MCA acute stroke 2. Right sided hemiparesis 3. Unable to swallow 4. Depression Plan - Continue on general medicine - Stop tube feeds - PEG placement by GI - Continue ASA, statin - Continue home medications- - Continue to work with PT - After PEG placed and feeds started, will monitor for 24 hours then can be discharge to acute rehab - Continue to follow psychiatry recommendations for depression and anxiety
--- NOTE | 2016-07-01 12:55 | NUR ---
PT LEFT FLOOR VIA STRETCHER FOR PEG TUBE PLACEMENT, IV ABX SENT W/ PT. WILL CONTINUE TO MONITOR.
--- NOTE | 2016-07-01 13:13 | Proc Note Endoscopy ---
Endoscopy Procedure Medical History: unchanged (see meditech consult) Mental Status: alert/oriented Heart/Lung Eval Prior to Sedation: within normal limits Candidate for Sedation? Yes Procedure Date: 07/01/16 Procedure Type: EGD with PEG placement Waste Chopper: Israel Suero MD ASA Classification: IV Indications: Dysphagia in a patient status post CVA. Instrument: diagnostic gastroscope Meds Received: 1gm of ancef (and MAC) Patient's Tolerance: good Complications: none Extent Reached: second part of duodenum Procedure: After getting written informed consent the patient was placed in the left lateral decubitus position with pulse oximetry, cardiac monitoring, and supplemental oxygen given. A bite block was inserted and IV sedation was given until the desired effect was achieved. A high definition upper Olympus endoscope was then inserted into the mouth and advanced to the second portion of the duodenum with little difficulty. Retroflexed views and photodocumentation was obtained. After inspection of the upper GI tract as described above the location of the PEG tube was determined by transillumination and finger indentation. This area was located in the [antrum] of the stomach and the mid epigastrium of the abdominal wall. The skin was then cleaned with Betadine and draped in a sterile fashion. 1% lidocaine without epinephrine was used to anesthetize the skin and the finder needle was seen entering the stomach endoscopically. A scalpel was used to make a 1 cm wide incision half a centimeter deep. An 18-gauge needle with catheter sheath was then inserted into the gastric lumen, and a floppy plastic wire was fed through the sheath, grabbed with a snare, and removed from the patient's mouth. The PEG tube was then attached to the wire and pulled antegrade without difficulty until the bumper abutted the gastric wall. The scope was then reintroduced to the patient's mouth and endoscopic confirmation of the PEG tube was obtained. The scope was then removed from the patient and the procedure was terminated. Findings: Esophagus: The esophageal mucosa was grossly normal in appearance there is no drink Z line at 40 cm from incisors. Stomach: The gastric mucosa was diffusely, mildly erythematous and there was some trauma from the NG tube, but there were no ulcers, erosions, or masses appreciated. Distention and peristalsis of stomach appeared normal. Retroflexed views were normal and did not reveal a significant hiatal hernia. As stated in the procedure section of this report a feeding tube was placed in the antrum without incident. Duodenum: The duodenal bulb, sweep, and folds were grossly normal appearance. Impression: 1. Nonerosive gastritis status post uneventful PEG tube placement. Recommendations: 1. Would monitor the PEG site for signs of infection or bleeding. 2. It is safe to use the PEG tube for meds today and if there are no complications would start tube feeds in the a.m. and advance as tolerated.
--- NOTE | 2016-07-01 13:24 | NUR ---
Physical Therapy: Attempted to see pt today. Pt SHARON for a PEG tube placement. Will defer mobilization for 24 hours after tube placement and ensure tube feedings initiated to confirm placement. Will follow up after as appropriate. Thank you.
--- NOTE | 2016-07-01 13:27 | NUR ---
SPEECH THERAPY: PEG TUBE PLACEMENT CHANGED TO TODAY. PT CURRENTLY UNDERGOING PROCEDURE AND UNABLE TO BE SEEN. ST CONTINUE TO FOLLOW FOR DYSPHAGIA AND SPEECH/LANGUAGE TX.
[2016-07-01 14:55] VITALS: BP 130/80
[2016-07-01 22:18] VITALS: BP 128/70
--- NOTE | 2016-07-01 22:54 | RADIOLOGY REPORT ---
EXAMINATION: XR PORTABLE CHEST CLINICAL INFORMATION: Aspiration pneumonia. Hypoxia. New onset of fever COMPARISON: Chest x-ray 06/29/2016 TECHNIQUE: Portable view of the chest was obtained. 10:34 PM FINDINGS: No significant abnormality is noted involving the heart, lungs, mediastinum, bony thorax or soft tissues. IMPRESSION: No acute change of the chest.
--- NOTE | 2016-07-02 03:53 | NUR ---
PT UNABLE TO TAKE PO NYSTATIN, CHOKED AND POSSIBLE ASPIRATION, THIS EVENING. MD NOTIFIED-CXR,ABX & BC ORDERED. PT TEMP 103.1- RECEIVED IV TYLENOL AND WENT DOWN TO 99.0. WILL CONTINUE TO MONITOR.
[2016-07-02 06:00] VITALS: BP 128/78
[2016-07-02 07:48] LABS: ABSOLUTE BASOPHIL COUNT 0 /CUMM (0.0-0.2); ABSOLUTE EOSINOPHIL COUNT 0.1 /CUMM (0.0-0.7); ABSOLUTE GRANULOCYTE CT 7.8 /CUMM (1.4-6.5); ABSOLUTE LYMPH COUNT 2.7 /CUMM (1.2-3.4); ABSOLUTE MONOCYTE COUNT 0.6 /CUMM (0.10-0.60); BASOPHIL % 0.3 % (0.0-2.0); EOSINOPHIL % 0.7 % (0-5); GRANULOCYTE % 69.5 % (42.2-75.2); HEMATOCRIT 40.4 % (37-47); MEAN CORPUSCULAR HGB 31.7 PG (27.0-31.0); MEAN CORPUSCULAR HGB CONC 33.7 G/DL (33.0-37.0); MEAN CORPUSCULAR VOLUME 94.3 FL (81.0-99.0); MEAN PLATELET VOLUME 8.9 FL (7.4-10.4); PLATELET COUNT 206 /CUMM (130-400); RBC DISTRIBUTION WIDTH 12.8 % (11.5-14.5); RED BLOOD CELL CT 4.28 /CUMM (4.20-5.40); WHITE BLOOD CELL COUNT 11.2 /CUMM (4.8-10.8)
--- NOTE | 2016-07-02 09:54 | PN- Housestaff ---
FLACA JACKSON 07/02/16 0954: Subjective Follow-up For: CVA B/L carotid stenosis Depression Subjective: Seen and examined patient night she spiked a fever of 103. Was given IV Unasyn 1 time dose. At this time does not complain of shortness of breath, chest pain, fever, chills, abdominal pain. Review of Systems Constitutional: Denies: chills, diaphoresis, fever, malaise, weakness, unexplained weight loss. Cardiovascular: Denies: chest pain, edema, orthopena, palpitations, peripheral edema, syncope. Respiratory: Denies: cough, hemoptysis, orthopnea, short of breath, sputum production, stridor, wheezing. Objective Last 24 Hrs of Vital Signs/I&O Vital Signs Date Time Temp Pulse Resp B/P Pulse O2 O2 Flow FiO2 Ox Delivery Rate 07/02 0831 93 Nasal 3.0L Cannula 07/02 06 98.4 80 18 128/78 98 Nasal 4.0L Cannula 07/02 0412 98.0 07/02 0000 96 Nasal 4.0L Cannula 07/01 2330 99.0 07/01 2314 99.0 07/01 2218 103.1 98 22 128/70 93 Nasal 4.0L Cannula 07/01 2156 103.1 07/01 1600 96 Nasal 4.0L Cannula 07/01 1455 97.8 74 20 130/80 93 Nasal 4.0L Cannula Intake & Output 07/02 1600 07/02 0800 07/02 0000 Intake Total 600 600 Output Total Balance 600 600 Intake, IV 600 600 Physical Exam General Appearance: Alert, Oriented X3, No Acute Distress Cardiovascular: Regular Rate, Normal S1, Normal S2 Lungs: Normal Air Movement, RIGHT-SIDED BASAL CRACKLES, Abdomen: Normal Bowel Sounds, Soft, No Tenderness, PEGTUBE IN PLACE DRESSING CLEAN NO SIGNS OF SWELLING OR ERYTHEMA, RIGHT DENSE HEMIPLEGIA, RIGHT UPPER EXTREMITY IN SPLINT Current Medications: Current Medications Sig/Eduardo Start time Last Medication Dose Route Stop Time Status Admin Acetaminophen 1,000 MG Q6H PRN 07/01 2145 AC 07/01 N/A 1 UNIT IV 2156 Acetaminophen 650 MG Q6 PRN 06/20 1730 AC 06/27 PO 2142 Albuterol Sulfate 3 ML Q4P PRN 06/20 2200 AC 07/01 INH 1501 Ampicillin Sodium/ 3,000 MG ONCE ONE 07/01 2200 DC 07/02 Sulbactam Sodium IV 07/01 2229 0001 Sodium Chloride 100 ML Aspirin 81 MG DAILY 06/21 1000 AC 06/30 PO 0827 Atorvastatin Calcium 80 MG 1700 06/20 1700 AC 07/01 PO 1740 Bisacodyl 10 MG Q12P PRN 06/26 1245 AC 06/26 NV 1310 Buprenorphine/ 1 TAB BID 06/21 1000 AC 07/01 Naloxone SL 2115 Cefazolin Sodium 1,000 MG ONCE ONE 07/01 1200 DC IV 07/01 1201 Chlorhexidine 1 GM .STK-MED ONE 07/01 1457 DC Gluconate TOP 07/01 1458 Cyclosporine 1 GTT Q12 06/20 2200 AC 07/01 OPH 2120 Dextrose/Sodium 1,000 ML Q13H 07/01 2230 AC 07/01 Chloride IV 07/02 1129 2311 Dextrose/Sodium 1,000 ML Q13H 07/01 0000 DC 07/01 Chloride IV 07/01 1259 0025 Enoxaparin Sodium 40 MG DAILY 07/02 1000 AC SC Fluoxetine HCl 20 MG DAILY 06/27 1308 AC 07/01 PO 1502 Magnesium Oxide 400 MG DAILY 06/24 1000 AC 07/01 PO 1502 Nystatin 5 ML 4 TIMES/DAY 06/30 2330 AC 07/01 PO 2115 Olanzapine 5 MG AT BEDTIME 06/27 220 AC 06/30 PO 2206 Pantoprazole Sodium 40 MG DAILY 06/20 1730 AC 07/01 IV 1017 Patient Medication 1 UNIT ONE NR 07/01 1715 [place] Teaching ED 07/01 1730 Last 24 Hrs of Lab/Edgar Results Last 24 Hrs of Labs/Mics: Laboratory Tests 07/02/16 0600: Anion Gap 11, Estimated GFR > 60, BUN/Creatinine Ratio 20.0, Phosphorus 4.5, Magnesium 1.6, CBC w Diff NO MAN DIFF REQ, RBC 4.28, MCV 94.3, MCH 31.7 H, RDW 12.8, MPV 8.9, Gran % 69.5, Lymphocytes % 24.1, Monocytes % 5.4, Eosinophils % 0.7, Basophils % 0.3, Absolute Granulocytes 7.8 H, Absolute Lymphocytes 2.7, Absolute Monocytes 0.6, Absolute Eosinophils 0.1, Absolute Basophils 0, PUBS MCHC 33.7 Microbiology 07/01 2359 BLOOD: Blood Culture - RECD 07/01 2345 BLOOD: Blood Culture - RECD Assessment/Plan Assessment: 56 -year-old woman with PMH signficant for opiate abuse (on suboxone from 2 yrs ), anxiety, depression, bipolar disorder initially admitted to ICU for new left MCA territory infarct outside timeframe for TPA, continues to have neurological deficits including dysphagia and right dense hemiplegia. febrile plan: fever: ?aspiration Currently afebrile, no acute changes seen in chest x-ray Will continue with IV Unasyn, blood cultures and urine culture sent Left MCA territory infarct * s/p PEG tube placement and will be done tomorrow, will start tube feeds * on Aspirin 81mg, atorvastatin 80mg via NG tube * acute rehabilitation in stable * Found to have more dynamically significant bilateral carotid stenosis and left middle cerebral artery stenosis, follow-up with vascular as upon discharge * ECHO shows normal left ventricular EF at more than 65% * Neurology and vascular on board appreciate their recommendations History of opiate abuse on suboxone * Continue Suboxone BID SL History of anxiety/depression/bipolar disorder * fluoxetine and Olanzapine restarted DVT prophylaxis * ALPS * Lovenox Code Status * Full Code Problem List: 1. Aspiration pneumonia 2. CVA (cerebral vascular accident) Pain Ratin Pain Location: na Pain Goal: Pain 4 or less Pain Plan: Current regimen Tomorrow's Labs & Rationales: cbc/bep/ph on tube feeds, spiking fever PRECIOUS EVANGELISTA MD 07/02/16 1435: Attending MD Review Statement Attending Statement Attending MD Statement: examined this patient, discuss w/resident/PA/OFFICE MANAGER RECEPTIONIST, agreed w/resident/PA/OFFICE MANAGER RECEPTIONIST, reviewed EMR data (avail) Attending Assessment/Plan: 56F PMH opiate abuse (on Suboxone), anxiety/depression/bipolar disorder admitted for left MCA acute stroke with right sided hemiparesis who was not a candidate for tPA due to time frame of symptoms. Patient is non-verbal but understands when spoken to and can nod and shake her head. Still having right sided hemiparesis but able to walk with PT today with assistance on right side. PEG placed yesterday without complications. Febrile to 103 overnight with stable vitals. 1. Left MCA acute stroke 2. Right sided hemiparesis 3. Unable to swallow 4. Depression Plan - Continue on general medicine - Start PEG feeds - Continue ASA, statin - Continue home medications - Contineu Unsayn - Follow cultures - Continue to work with PT - Continue to follow psychiatry recommendations for depression and anxiety
[2016-07-02 13:56] VITALS: BP 118/60
[2016-07-02 22:14] VITALS: BP 114/70
[2016-07-03 05:57] VITALS: BP 120/68
[2016-07-03 08:20] LABS: ABSOLUTE BASOPHIL COUNT 0 /CUMM (0.0-0.2); ABSOLUTE EOSINOPHIL COUNT 0.1 /CUMM (0.0-0.7); ABSOLUTE GRANULOCYTE CT 6.7 /CUMM (1.4-6.5); ABSOLUTE LYMPH COUNT 2.5 /CUMM (1.2-3.4); ABSOLUTE MONOCYTE COUNT 0.7 /CUMM (0.10-0.60); BASOPHIL % 0.2 % (0.0-2.0); GRANULOCYTE % 66.7 % (42.2-75.2); HEMATOCRIT 38.5 % (37-47); MEAN CORPUSCULAR HGB 31.7 PG (27.0-31.0); MEAN CORPUSCULAR HGB CONC 33.7 G/DL (33.0-37.0); MEAN PLATELET VOLUME 9.1 FL (7.4-10.4); PLATELET COUNT 209 /CUMM (130-400); RBC DISTRIBUTION WIDTH 12.9 % (11.5-14.5)
--- NOTE | 2016-07-03 08:49 | PN- Housestaff ---
HILLESTEPHANIAFLACA 07/03/16 0849: Subjective Follow-up For: CVA B/L carotid stenosis Depression Subjective: Seen and examined patient, denied pain, fever, abdominal pain Review of Systems Constitutional: Reports: see HPI. Objective Last 24 Hrs of Vital Signs/I&O Vital Signs Date Time Temp Pulse Resp B/P Pulse O2 O2 Flow FiO2 Ox Delivery Rate 07/03 1429 97.4 75 18 112/68 95 Nasal 3.0L Cannula 07/03 0557 98.0 78 20 120/68 94 Nasal 3.0L Cannula 07/03 0000 Nasal 4.0L Cannula 07/02 2214 99.6 86 20 114/70 96 07/02 1945 94 Nasal 3.0L Cannula 07/02 1600 Nasal 4.0L Cannula Intake & Output 07/03 1600 07/03 0800 07/03 0000 Intake Total 510 175 Output Total 200 Balance 510 -25 Intake, IV 150 Intake, Tube 160 75 Feeding Intake, Tube 200 100 Irrigant Output, Urine 200 Physical Exam General Appearance: Alert, Oriented X3, Cooperative, No Acute Distress Cardiovascular: Regular Rate, Normal S1, Normal S2 Lungs: Clear to Auscultation, Normal Air Movement Abdomen: Normal Bowel Sounds, Soft, No Tenderness, PEG tube in place and clean dressing no surrounding signs of infection Current Medications: Current Medications Sig/Eduardo Start time Last Medication Dose Route Stop Time Status Admin Acetaminophen 1,000 MG Q6H PRN 07/01 2145 AC 07/01 N/A 1 UNIT IV 2156 Acetaminophen 650 MG Q6 PRN 06/20 1730 AC 06/27 PO 2142 Albuterol Sulfate 3 ML Q4P PRN 06/20 2200 AC 07/01 INH 1501 Ampicillin Sodium/ 1,500 MG Q6H 07/02 1500 AC 07/03 Sulbactam Sodium IV 1431 Sodium Chloride 100 ML Aspirin 81 MG DAILY 06/21 1000 AC 07/03 PO 1127 Atorvastatin Calcium 80 MG 1700 06/20 1700 AC 07/02 PO 1548 Bisacodyl 10 MG Q12P PRN 06/26 1245 AC 06/26 [place] 1310 Buprenorphine/ 1 TAB BID 06/21 1000 AC 07/03 Naloxone SL 1127 Cyclosporine 1 GTT Q12 06/20 2200 AC 07/03 OPH 1128 Enoxaparin Sodium 40 MG DAILY 07/02 1000 AC 07/02 SC 1031 Fluoxetine HCl 20 MG DAILY 06/27 1308 AC 07/03 PO 1126 Magnesium Oxide 400 MG DAILY 06/24 1000 AC 07/03 PO 112 Nystatin 5 ML 4 TIMES/DAY 06/30 2330 AC 07/03 PO 1431 Olanzapine 5 MG AT BEDTIME 06/27 220 AC 07/02 PO 205 Pantoprazole Sodium 40 MG DAILY 06/20 1730 AC 07/03 IV 1128 Last 24 Hrs of Lab/Edgar Results Last 24 Hrs of Labs/Mics: Laboratory Tests 07/03/16 0619: Anion Gap 11, Estimated GFR > 60, BUN/Creatinine Ratio 23.3, Phosphorus 4.3, CBC w Diff NO MAN DIFF REQ, RBC 4.10 L, MCV 94.0, MCH 31.7 H, RDW 12.9, MPV 9.1, Gran % 66.7, Lymphocytes % 24.9, Monocytes % 7.2, Eosinophils % 1.0, Basophils % 0.2, Absolute Granulocytes 6.7 H, Absolute Lymphocytes 2.5, Absolute Monocytes 0.7 H, Absolute Eosinophils 0.1, Absolute Basophils 0, PUBS MCHC 33.7 07/02/162239: Urine Color YEL, Urine Clarity CLEAR, Urine pH 6.0, Ur Specific [place] 1.025, Urine Protein NEG, Urine Ketones NEG, Urine Nitrite NEG, Urine Bilirubin NEG, Urine Urobilinogen 4.0 H, Ur Leukocyte Esterase NEG, Ur Microscopic EXAM NOT REQUIRED, Urine Hemoglobin NEG, Urine Glucose NEG Microbiology 07/02 2239 URINE ROUT: Urine Culture - RES Assessment/Plan Assessment: 56 -year-old woman with PMH signficant for opiate abuse (on suboxone from 2 yrs ), anxiety, depression, bipolar disorder initially admitted to ICU for new left MCA territory infarct outside timeframe for TPA, continues to have neurological deficits including dysphagia currently status post PEG tube placement. plan: fever: Continues to remain afebrile, normal white count Will DC IV Unasyn and watch off antibiotics for now Left MCA territory infarct * s/p PEG tube placement already tube feeds at goal rate * on Aspirin 81mg, atorvastatin 80mg via NG tube * acute rehabilitation in stable * Found to have more dynamically significant bilateral carotid stenosis and left middle cerebral artery stenosis, follow-up with vascular as upon discharge * ECHO shows normal left ventricular EF at more than 65% * Neurology and vascular on board appreciate their recommendations History of opiate abuse on suboxone * Continue Suboxone BID SL History of anxiety/depression/bipolar disorder * fluoxetine and Olanzapine restarted DVT prophylaxis * ALPS * Lovenox Code Status * Full Code Problem List: 1. Aspiration pneumonia 2. CVA (cerebral vascular accident) Pain Ratin Pain Location: Not applicable Pain Goal: Pain 4 or less Pain Plan: Current regimen Tomorrow's Labs & Rationales: none required PRECIOUS EVANGELISTA MD 07/03/16 1903: Attending MD Review Statement Attending Statement Attending MD Statement: examined this patient, discuss w/resident/PA/PACKERHEAD MACHINE OPERATOR, agreed w/resident/PA/PACKERHEAD MACHINE OPERATOR, reviewed EMR data (avail) Attending Assessment/Plan: 56F PMH opiate abuse (on Suboxone), anxiety/depression/bipolar disorder admitted for left MCA acute stroke with right sided hemiparesis who was not a candidate for tPA due to time frame of symptoms. Patient is non-verbal but understands when spoken to and can nod and shake her head. Still having right sided hemiparesis but able to walk with PT today with assistance on right side. PEG placed without complications. Tolerating feeds well. Appears more awake and alert today. 1. Left MCA acute stroke 2. Right sided hemiparesis 3. Unable to swallow 4. Depression Plan - Continue on general medicine - Start PEG feeds - Continue ASA, statin - Continue home medications - Contineu Unsayn - Follow cultures - Continue to work with PT - Anticipated discharge to rehab tomorrow
[2016-07-03 14:29] VITALS: BP 112/68
[2016-07-03 21:58] VITALS: BP 120/60
[2016-07-04 06:48] VITALS: BP 120/62
--- NOTE | 2016-07-04 11:17 | PN- Housestaff ---
HILLESTEPHANIAFLACA 07/04/16 1117: Subjective Follow-up For: CVA B/L carotid stenosis Depression Subjective: Seen and examined patient offers no complaints. Has some discomfort around the PEG tube site Review of Systems Constitutional: Reports: see HPI. Objective Last 24 Hrs of Vital Signs/I&O Vital Signs Date Time Temp Pulse Resp B/P Pulse O2 O2 Flow FiO2 Ox Delivery Rate 07/04 1410 97.0 89 18 120/70 90 Nasal 2.0L Cannula 07/04 1354 91 Nasal 2.0L Cannula 07/04 1156 Nasal 3.0L Cannula 07/04 08 Nasal 2.0L Cannula 07/04 0648 97.6 96 18 120/62 94 Nasal 2.0L Cannula 07/04 0000 Nasal 2.0L Cannula 07/03 2158 98.5 79 18 120/60 96 Nasal 2.0L Cannula 07/03 1941 97 Nasal 3.0L Cannula Intake & Output 07/04 1600 07/04 0800 07/04 0000 Intake Total 420 520 505 Output Total Balance 420 520 505 Intake, IV 0 Intake, Tube 320 320 305 Feeding Intake, Tube 100 200 200 Irrigant Number 1 Bowel Movements Physical Exam General Appearance: Alert, Oriented X3, Cooperative, No Acute Distress Cardiovascular: Normal S1, Normal S2 Lungs: Clear to Auscultation Abdomen: Normal Bowel Sounds, Soft, No Tenderness, no signs of infection around the peg tube site Current Medications: Current Medications Sig/Eduardo Start time Last Medication Dose Route Stop Time Status Admin Acetaminophen 1,000 MG Q6H PRN 07/01 2145 AC 07/01 N/A 1 UNIT IV 2156 Acetaminophen 650 MG Q6 PRN 06/20 1730 AC 06/27 PO 2142 Albuterol Sulfate 3 ML Q4P PRN 06/20 2200 AC 07/03 INH 1939 Aspirin 81 MG DAILY 06/21 1000 AC 07/04 PO 1002 Atorvastatin Calcium 80 MG 1700 06/20 1700 AC 07/03 PO 1600 Bisacodyl 10 MG .STK-MED ONE 07/04 0605 DC ND 07/04 0606 Bisacodyl 10 MG Q12P PRN 06/26 1245 AC 07/04 ND 0607 Buprenorphine/ 1 TAB BID 06/21 1000 AC 07/04 Naloxone SL 1002 Cyclosporine 1 GTT Q12 06/20 2200 AC 07/04 OPH 1002 Enoxaparin Sodium 40 MG DAILY 07/02 1000 AC 07/04 SC 1003 Fluoxetine HCl 20 MG DAILY 06/27 1308 AC 07/04 PO 1002 Magnesium Oxide 400 MG DAILY 06/24 1000 AC 07/04 PO 1002 Nystatin 5 ML 4 TIMES/DAY 06/30 2330 AC 07/04 PO 1313 Olanzapine 5 MG AT BEDTIME 06/27 2200 AC 07/03 PO 2149 Omeprazole 40 MG DAILY AC 07/05 0700 AC PO Pantoprazole Sodium 40 MG DAILY 06/20 1730 DC 07/04 IV 1002 Assessment/Plan Assessment: 56 -year-old woman with PMH signficant for opiate abuse (on suboxone from 2 yrs ), anxiety, depression, bipolar disorder initially admitted to ICU for new left MCA territory infarct outside timeframe for TPA, continues to have neurological deficits including dysphagia currently status post PEG tube placement. Form Nurse that her fianc has been giving her for her which she is drinking without any issues. Staff also noticed her swallowing. plan: fever: Continues to remain afebrile, normal white count watch off antibiotics for now Left MCA territory infarct * s/p PEG tube placement already tube feeds at goal rate * We'll obtain modified barium swallow eval to see if she continues to require the PEG tube. * on Aspirin 81mg, atorvastatin 80mg via NG tube * acute rehabilitation in stable * Found to have more dynamically significant bilateral carotid stenosis and left middle cerebral artery stenosis, follow-up with vascular as upon discharge * ECHO shows normal left ventricular EF at more than 65% * Neurology and vascular on board appreciate their recommendations History of opiate abuse on suboxone * Continue Suboxone BID SL History of anxiety/depression/bipolar disorder * fluoxetine and Olanzapine restarted DVT prophylaxis * ALPS * Lovenox Code Status * Full Code Problem List: 1. Dysphagia 2. Malnutrition 3. Aspiration pneumonia 4. CVA (cerebral vascular accident) Pain Ratin Pain Location: na Pain Goal: Pain 4 or less Pain Plan: current regimen Tomorrow's Labs & Rationales: bep on tube feeds PRECIOUS EVANGELISTA MD 07/04/16 1242: Attending MD Review Statement Attending Statement Attending MD Statement: examined this patient, discuss w/resident/PA/USABILITY SPECIALIST, agreed w/resident/PA/USABILITY SPECIALIST, reviewed EMR data (avail) Attending Assessment/Plan: 56F PMH opiate abuse (on Suboxone), anxiety/depression/bipolar disorder admitted for left MCA acute stroke with right sided hemiparesis who was not a candidate for tPA due to time frame of symptoms. Patient is non-verbal but understands when spoken to and can nod and shake her head. Still having right sided hemiparesis but able to walk with PT today with assistance on right side. PEG placed without complications. Tolerating feeds well. Appears more awake and alert today. 1. Left MCA acute stroke 2. Right sided hemiparesis 3. Unable to swallow 4. Depression Plan - Stable for discharge - Continue PEG feeds - Continue ASA, statin - Continue home medications - Discontinue antibiotics - Continue to work with PT
[2016-07-04 14:10] VITALS: BP 120/70
--- NOTE | 2016-07-04 14:50 | Discharge Summary ---
Visit Information Visit Dates Admission Date: 06/20/16 Discharge Date: 07/14/16 Hospital Course Course Attending Physician: PRECIOUS EVANGELISTA MD Primary Care Physician: PATIENT HAS NO PRIMARY CARE DR Consulting Request: 1 Consulting Specialty: Neurology Consulting Physician: Dr. Aguilera Reason for Consult: New MCA infarction Consulting Request: 2 Consulting Specialty: Cardiology Consulting Physician: Dr. Bowens Reason for Consult: Stroke syndrome, assessmnt for cardioembolic source Consulting Request: 3 Consulting Specialty: Thoracic/Vascular Surgery Consulting Physician: Dr. Huffman Reason for Consult: Bilateral carotid stenosis Consulting Request: 4 Consulting Specialty: Critical Care Consulting Physician: Dr. Ford Reason for Consult: Acute Lt. MCA infarction / aspiration pneumnia Consulting Request: 5 Consulting Specialty: Psychiatry Consulting Physician: Dr. Nolan Reason for Consult: History of opioid dependence with current suboxone program Consulting Request: 6 Consulting Specialty: Gastroenterology Consulting Physician: Dr. Jason Reason for Consult: PEG tube placement Hospital Course: 55-year-old woman with past medical history of substance abuse(IV injection) on Suboxone for 2 years, anxiety/depression/bipolar disorder on olanzapine and fluoxetine, daily smoker of 2 packs a day was BIBA to the hospital for chief complaint of right-sided weakness. Around 9:30 AM patient reporting feeling funny and gradually she had weakness of her right arm and subsequently with a soft early right leg with unsteady gaits. Patient developed slurred speech gradually an ambulance was called around 1 PM on the same day of admission. Vital signs on admission blood pressure 155/81, respiratory rate 20, O2 saturation 92, pulse rate 75, temperature 96.[address] 06/20: no acute intracranial pathology MRI 06/22: Acute left MCA territorial infarction with mild mass effect. ABG: PCO2 of 50, PO2 of 63, normal pH, HCO3 29, O2 saturation 89% on room air EKG showed normal sinus rhythm, 75, QTC 443, inverted T's in V1 and V2 and possibly inverted P in V1 Hospital course: 1. Acute left MCA stroke with near occlusion of left intracranial artery stenosis: She was initially admitted to ICU for 1hr neuro checks, then she was transferred to on 06/27/16. Patient received aspirin and statins in the ED. She failed swallow evaluation, and NG tube was placed for medication administration. MRI showed left MCA infarct with mild mass effect. MRA of the neck was open which showed near occlusive thrombus within the proximal M1 segment of the left middle cerebral artery. There is also a moderate focal stenosis at the origin of the right MCA. Echocardiogram was done which showed a ejection fraction of 65% with no evidence of arterial thrombus. Carotid ultrasound was ordered which showed bilateral hemodynamically significant stenosis consistent with 50-79% diameter reduction involving both the proximal left and the right internal carotid arteries. Vascular surgery is consulted and they would like to follow as an outpatient as there is no indication for urgent intervention. Patient was followed by cardiology who agreed with the above management. Unfortunately patient failed swallow evaluation several attempts and decision was made to start her on tube feeds. She was also followed up by physical therapy/occupational therapy while she was in the hospital. She had a EGD with PEG tube placement on 07/01/2016 and tube feeds continued. She was continued on tube feeds. She was continued on IV protonix which was later changed to by mouth Protonix. During hospital stay, patient was able to swallow few sips of water. She was evaluated by swallow eval again and pure Diet with nectar thick liquid was recommended. She was able to tolerate very well. GI was consulted for removal of PEG tube. PEG tube removal will be in 6-8 weeks. She needs to follow- up with GI as outpatient. Bed search by case management found a STR that would take patient in [place], [place] however patient declined stating that it was "too far " and her family members agreed. Physical therapy evaluation determined that patient would not be safe to be discharged to home. This was discussed with the patient and her family and patient decided to leave AGAINST MEDICAL ADVICE. Case management was notified of this and the appropriate services and medical devices were arranged for the patient including home nursing/physical therapy, hospital bed, wheelchair, graciela lift, and commode. 2. Right-sided hemiparalysis secondary to CVA: She was started on physical therapy/occupational therapy. She will need acute rehabilitation and continues PT/OT. 3. Aspiration pneumonia: Most likely due to degluation defect from massive stroke. She was placed on IV Unasyn and completed a total of 7 day course. Blood cultures and urine cultures were done which were negative. 4. Depression: She was continued on Prozac and Zyprexa 5. History of IV drug abuse: Suboxone taper schedule was recommended by psychiatry, but patient declined to follow taper schedule. She will be discharged with usual home dose of suboxone. DVT ppx: SC lovenox 40mg daily Full code Allergies: Coded Allergies: azithromycin (TREMORS 06/20/16) erythromycin base (TREMORS 06/20/16) Significant Procedures: 06/21 Echocardiogram : Normal size left ventricle. Mild concentric left ventricular hypertrophy. Normal left ventricular ejection fraction visually estimated at > 65%. Normal left ventricular diastolic filling pattern for age. Normal right ventricular size and function. Normal atrial size. Trace mitral regurgitation. Mild tricuspid regurgitation. No evidence of pulmonary hypertension. 06/22 US DUPLEX CAROTID AND VERTEBRAL : Bilateral hemodynamically significant stenoses consistent with a 50-79% diameter reduction involving both the proximal left and right internal carotid arteries. The degree of stenosis is greater in the left internal carotid artery compared to the right. Further evaluation can be obtained with CTA of the neck, if clinically indicated. 06/22 CT neck angiogram 1. Mixed density atherosclerotic plaque at the left carotid bifurcation leads to a "near occlusion ". There is a second high-grade stenosis at the genu of the left cavernous carotid artery due to eccentric lipid density plaque and there is also acute at least partial occlusion of the left MCA. 2. Eccentric lipid density plaque just beyond the origin of the nondominant right vertebral artery leads to 75% stenosis. 06/22 Brain MRI W/O STEVEN Acute left MCA territorial infarction with mild mass effect. No hemorrhagic conversion or midline shift of structures. Small caliber of the left ICA flow void which is otherwise preserved. Findings are either due to an underlying dissection or possibly a near occlusion related to a proximal hemodynamically significant stenosis. Peg tube was placed by Dr. Suero on 07/01/2016. 07/05 Modified barium swallow Although delayed initiation of swallowing was observed, the airway was well protected on all swallows. A single, minor episode of transient penetration was seen with intake of barium coated honey. There was no aspiration. Pertinent Lab Results: Laboratory Tests 07/05 0737 Chemistry Sodium (137 - 145 mmol/L) 140 Potassium (3.5 - 5.1 mmol/L) 3.9 Chloride (98 - 107 mmol/L) 93 L Carbon Dioxide (22 - 30 mmol/L) 36 H Anion Gap (5 - 16) 11 BUN (7 - 17 mg/dL) 13 Creatinine (0.5 - 1.0 mg/dL) 0.6 Estimated GFR (>60 ml/min) > 60 BUN/Creatinine Ratio (7 - 25 %) 21.7 Phosphorus (2.5 - 4.5 mg/dL) 4.5 Disposition Summary Disposition Principal Diagnosis: 1. Acute left MCA stroke with near occlusion of left intracranial artery stenosis 2. Right-sided hemiparalysis 3. Aspiration pneumonia 4. Depression Additional Diagnosis: History of IV drug abuse on Suboxone Discharge Disposition: SNF Discharge Instructions General Discharge Information Code Status: Full Code Patient's Diet: Pure Diet with nectar thin liquid Patient's Activity: 1. As tolerated with physical therapy/Occupational therapy Follow-Up Instructions/Appts: Patient left against medical advice. 1. Follow-up with primary care physician in one week upon discharge. Will give referral to [facility] resident clinic. 2. Follow-up with Dr. Suero for removal of PEG tube placement in (6-8 weeks after initial placement) 3. Follow up with vascular surgery for discussion about blockage in the neck. 4. Please follow-up with your skein winder upon discharge 5. Please follow-up with your neurologist within 2 weeks of discharge 6. Continue suboxone program as outpatient Medications at Discharge Discharge Medications: Continue taking these medications: Fluoxetine HCl (Fluoxetine HCl) 20 MG CAPSULE 1 Capsule ORAL DAILY Qty = 14 Comments: Last Taken:07/14/16 Time:1000 Buprenorphine HCl/Naloxone HCl (Suboxone 8 MG-2 MG Sl Film) 8 MG-2 MG FILM 1 Strip SUBLINGUAL TWICE DAILY Qty = 28 Comments: Last Taken:07/14/16 Time:1000 Olanzapine (Olanzapine) 5 MG TABLET 1 Tablet ORAL Every night Qty = 14 Comments: Last Taken:07/13/16 Time:2100 Cyclosporine (Restasis) 0.05 % DROPERETTE 1 Drop In the eye TWICE DAILY Qty = 180 Comments: Last Taken:07/14/16 Time:1000 Cholecalciferol (Vitamin D3) (Vitamin D) 2,000 UNIT CAPSULE 1 Capsule ORAL DAILY Qty = 30 Comments: DID NOT RECEIVE IN HOSPITAL Start taking the following new medications: Nystatin (Nystatin) 100,000 UNIT/ML ORAL.SUSP 5 Milliliters ORAL 4 TIMES A DAY Days = 7 No Refills Comments: Last Taken:07/14/16 Time:1315 Atorvastatin Calcium (Atorvastatin Calcium) 80 MG TABLET 1 Tablet ORAL 5 PM Days = 30 No Refills Comments: Last Taken:07/13/16 Time:1640 Aspirin (Aspirin*) 81 MG TAB.CHEW 1 Tablet ORAL DAILY Days = 30 No Refills Comments: Last Taken:07/14/16 Time:1000 Acetaminophen (Tylenol) 325 MG TABLET 650 Milligram ORAL EVERY SIX HOURS as needed for PAIN SCALE 1-3 (MILD) Days = 30 No Refills Comments: Last Taken:07/13/16 Time:2100 Bisacodyl (Bisac-Evac) 10 MG SUPP.RECT 10 Milligram RECTALLY Every 12 hours as needed as needed for CONSTIPATION Days = 30 No Refills Comments: DID NOT RECEIVE Famotidine (Famotidine) 20 MG TABLET 20 Milligram ORAL DAILY Days = 30 No Refills Comments: Last Taken:07/14/16 Time:1000 Copies To: JEAN CARLOS SUN,PRECIOUS; ZULAY SUN,ARACELI; LAVELL SUN,WAYNE Rachel; JAKUB SUN,KETAN; THADDEUS SUN, TINO; DEN SUN,SAMIA Attending MD Review Statement Documenting Attending: PRECIOUS EVANGELISTA MD
[2016-07-04 22:07] VITALS: BP 140/72
[2016-07-05 07:01] VITALS: BP 140/84
--- NOTE | 2016-07-05 07:28 | PN- Housestaff ---
FLACA JACKSON 07/05/16 0728: Subjective Follow-up For: CVA B/L carotid stenosis Depression Subjective: Seen and examined patient offers no complaints Review of Systems Constitutional: Denies: chills, diaphoresis, fever, malaise, weakness, unexplained weight loss. Cardiovascular: Denies: chest pain, edema, orthopena, palpitations, peripheral edema, syncope. Respiratory: Denies: cough, hemoptysis, orthopnea, short of breath, sputum production, stridor, wheezing. Gastrointestinal: Denies: abdominal pain. Objective Last 24 Hrs of Vital Signs/I&O Vital Signs Date Time Temp Pulse Resp B/P Pulse O2 O2 Flow FiO2 Ox Delivery Rate 07/05 0701 98.0 80 18 140/84 97 Nasal 2.0L Cannula 07/05 0000 99 Nasal 2.0L Cannula 07/04 2207 97.9 82 20 140/72 99 07/04 1410 97.0 89 18 120/70 90 Nasal 2.0L Cannula 07/04 1354 91 Nasal 2.0L Cannula 07/04 1156 Nasal 3.0L Cannula Intake & Output 07/05 1600 07/05 0800 07/05 0000 Intake Total 530 530 Output Total Balance 530 530 Intake, IV 10 10 Intake, Tube 320 320 Feeding Intake, Tube 200 200 Irrigant Number 0 Bowel Movements Physical Exam General Appearance: Alert, Oriented X3, Cooperative, No Acute Distress Cardiovascular: Regular Rate, Normal S1, Normal S2 Lungs: Clear to Auscultation, Normal Air Movement Abdomen: Normal Bowel Sounds, Soft, No Tenderness, PEG tube in place Neurological: right hemiparesis Current Medications: Current Medications Sig/Eduardo Start time Last Medication Dose Route Stop Time Status Admin Acetaminophen 1,000 MG Q6H PRN 07/01 2145 AC 07/01 N/A 1 UNIT IV 2156 Acetaminophen 650 MG Q6 PRN 06/20 1730 AC 06/27 PO 2142 Albuterol Sulfate 3 ML Q4P PRN 06/20 2200 AC 07/03 INH 1939 Aspirin 81 MG DAILY 06/21 1000 AC 07/04 PO 1002 Atorvastatin Calcium 80 MG 1700 06/20 1700 AC 07/04 PO 1644 Bisacodyl 10 MG Q12P PRN 06/26 1245 AC 07/04 UT 0607 Buprenorphine/ 1 TAB BID 06/21 1000 AC 07/04 Naloxone SL 2200 Cyclosporine 1 GTT Q12 06/20 2200 AC 07/04 OPH 2200 Enoxaparin Sodium 40 MG DAILY 07/02 1000 AC 07/04 SC 1003 Fluoxetine HCl 20 MG DAILY 06/27 1308 AC 07/04 PO 1002 Magnesium Oxide 400 MG DAILY 06/24 1000 AC 07/04 PO 1002 Nystatin 5 ML 4 TIMES/DAY 06/30 2330 DC 07/04 PO 1841 Olanzapine 5 MG AT BEDTIME 06/27 2200 AC 07/04 PO 2200 Omeprazole 40 MG DAILY AC 07/05 0700 AC 07/05 PO 0524 Pantoprazole Sodium 40 MG DAILY 06/20 1730 DC 07/04 IV 1002 Last 24 Hrs of Lab/Edgar Results Last 24 Hrs of Labs/Mics: Laboratory Tests 07/05/16 0737: Anion Gap 11, Estimated GFR > 60, BUN/Creatinine Ratio 21.7, Phosphorus 4.5 Assessment/Plan Assessment: 56 -year-old woman with PMH signficant for opiate abuse (on suboxone from 2 yrs ), anxiety, depression, bipolar disorder initially admitted to ICU for new left MCA territory infarct outside timeframe for TPA, continues to have neurological deficits including dysphagia currently status post PEG tube placement. plan: Left MCA territory infarct * did well on modified barium swallow, currently on puree diet, tube feeds on hold, and possibly take PEG tube out tomorrow if she tolerates diet overnight * on Aspirin 81mg, atorvastatin 80mg via NG tube * acute rehabilitation in stable * Found to have more dynamically significant bilateral carotid stenosis and left middle cerebral artery stenosis, follow-up with vascular as upon discharge * ECHO shows normal left ventricular EF at more than 65% * Neurology and vascular on board appreciate their recommendations History of opiate abuse on suboxone * Continue Suboxone BID SL History of anxiety/depression/bipolar disorder * fluoxetine and Olanzapine restarted DVT prophylaxis * ALPS * Lovenox Code Status * Full Code Problem List: 1. Malnutrition 2. Aspiration pneumonia 3. CVA (cerebral vascular accident) Pain Ratin Pain Location: Not applicable Pain Goal: Pain 4 or less Pain Plan: current regimen Tomorrow's Labs & Rationales: none required PRECIOUS EVANGELISTA MD 07/05/16 1439: Attending Review Statement Attending Statement Attending MD Statement: examined this patient, discuss w/resident/PA/LAWYERS, agreed w/resident/PA/LAWYERS, reviewed EMR data (avail) Attending Assessment/Plan: 56F PMH opiate abuse (on Suboxone), anxiety/depression/bipolar disorder admitted for left MCA acute stroke with right sided hemiparesis who was not a candidate for tPA due to time frame of symptoms. Patient is non-verbal but understands when spoken to and can nod and shake her head. Still having right sided hemiparesis but able to walk with PT today with assistance on right side. PEG placed without complications. Today, patient was able to swallow water given to her by her . Speech therapy saw her today and patient passed swallow eval, able to tolerate puree diet with thick liquids. 1. Left MCA acute stroke 2. Right sided hemiparesis 3. Unable to swallow 4. Depression Plan - Will speak with GI regarding PEG tube now that patient is swallowing - May stop PEG feeds, start diet as stated above - Continue ASA, statin - Continue home medications - Continue to work with PT
--- NOTE | 2016-07-05 11:37 | RADIOLOGY REPORT ---
EXAMINATION: XR MODIFIED BARIUM SWALLOW CLINICAL INFORMATION: History of stroke. Evaluate for possible oral intake. COMPARISON: None. TECHNIQUE: Fluoroscopic assistance was provided during a modified barium swallow performed in coordination with the speech pathology service. FLUOROSCOPY TIME: 1 minute, 34 seconds FINDINGS: The modified barium swallow examination was performed in cooperation with the speech pathologist using dynamic fluoroscopic imaging in a lateral projection. The patient's swallowing function was observed during administration of apple sauce puree, honey, nectar, thin barium contrast, and barium coated bread and cracker. There was spillage of contrast coated material into the vallecula and toward the piriform sinuses prior to initiation of several of the swallows. There was minor, transient penetration of honey. However, no episodes of tracheal aspiration. Please refer to the speech pathology report regarding their assessment and treatment recommendations. IMPRESSION: Although delayed initiation of swallowing was observed, the airway was well protected on all swallows. A single, minor episode of transient penetration was seen with intake of barium coated honey. There was no aspiration.
[2016-07-05 14:00] VITALS: BP 120/80
[2016-07-05 22:07] VITALS: BP 100/60
[2016-07-06 06:18] VITALS: BP 108/70
--- NOTE | 2016-07-06 07:15 | PN- Housestaff ---
FLACA JACKSON 07/06/16 0715: Subjective Follow-up For: CVA B/L carotid stenosis Depression Subjective: seen and examined patient, indicated that she is able to manage her puree diet. Denies fever, chills, abdominal pain. Review of Systems Constitutional: Denies: chills, diaphoresis, fever, malaise, weakness, unexplained weight loss. Cardiovascular: Denies: chest pain, edema, orthopena, palpitations, peripheral edema, syncope. Respiratory: Denies: cough, hemoptysis, orthopnea, short of breath, sputum production, stridor, wheezing. Gastrointestinal: Denies: abdominal pain. Objective Last 24 Hrs of Vital Signs/I&O Vital Signs Date Time Temp Pulse Resp B/P Pulse O2 O2 Flow FiO2 Ox Delivery Rate 07/06 617 98.3 85 18 108/70 91 Room Air 07/06 0000 Room Air 07/05 220 98.0 80 20 100/60 97 07/05 2205 91 Room Air 07/05 1400 97.8 70 18 120/80 90 Room Air 07/05 1223 92 Room Air Intake & Output 07/06 1600 07/06 0800 07/06 0000 Intake Total 0 120 Output Total Balance 0 120 Intake, IV 0 Intake, Oral 120 Number 0 Bowel Movements Physical Exam General Appearance: Alert, Oriented X3, Cooperative, No Acute Distress Cardiovascular: Regular Rate, Normal S1, Normal S2 Lungs: Normal Air Movement Abdomen: peg tube in place Current Medications: Current Medications Sig/Eduardo Start time Last Medication Dose Route Stop Time Status Admin Acetaminophen 1,000 MG Q6H PRN 07/01 2145 AC 07/01 N/A 1 UNIT IV 2156 Acetaminophen 650 MG Q6 PRN 06/20 1730 AC 06/27 PO 2142 Albuterol Sulfate 3 ML Q4P PRN 06/20 2200 AC 07/03 INH 1939 Aspirin 81 MG DAILY 06/21 1000 AC 07/05 PO 1004 Atorvastatin Calcium 80 MG 1700 06/20 1700 AC 07/05 PO 1728 Bisacodyl 10 MG .STK-MED ONE 07/05 1150 DC IN 07/05 1151 Bisacodyl 10 MG Q12P PRN 06/26 1245 AC 07/05 IN 1159 Buprenorphine/ 1 TAB BID 06/21 1000 AC 07/05 Naloxone SL 220 Cyclosporine 1 GTT Q12 06/20 2200 AC 07/05 OPH 2206 Enoxaparin Sodium 40 MG DAILY 07/02 1000 AC 07/05 SC 1004 Famotidine 20 MG DAILY 07/06 1000 AC PO Fluoxetine HCl 20 MG DAILY 06/27 1308 AC 07/05 PO 1004 Magnesium Oxide 400 MG DAILY 06/24 1000 AC 07/05 PO 1004 Nystatin 5 ML 4 TIMES/DAY 07/05 1400 AC 07/05 PO 2206 Olanzapine 5 MG AT BEDTIME 06/27 2200 AC 07/05 PO 2206 Omeprazole 40 MG DAILY AC 07/05 0700 DC 07/05 PO 0524 Assessment/Plan Assessment: 56 -year-old woman with PMH signficant for opiate abuse (on suboxone from 2 yrs ), anxiety, depression, bipolar disorder initially admitted to ICU for new left MCA territory infarct outside timeframe for TPA, continues to have neurological deficits including dysphagia currently status post PEG tube placement. plan: Left MCA territory infarct * tolerated puree diet, will discuss with GI regarding peg tube removal, will see if she can swallow PO meds today. * on Aspirin 81mg, atorvastatin 80 * acute rehabilitation in stable * Dynamically significant bilateral carotid stenosis and left middle cerebral artery stenosis, follow-up with vascular as upon discharge * ECHO shows normal left ventricular EF at more than 65% * Neurology and vascular on board appreciate their recommendations History of opiate abuse on suboxone * Continue Suboxone BID SL History of anxiety/depression/bipolar disorder * fluoxetine and Olanzapine restarted DVT prophylaxis * ALPS * Lovenox Code Status * Full Code Problem List: 1. Aspiration pneumonia 2. CVA (cerebral vascular accident) 3. Dysphagia Pain Ratin Pain Location: na Pain Goal: Pain 4 or less Pain Plan: current regimen Tomorrow's Labs & Rationales: none required PRECIOUS EVANGELISTA MD 07/06/16 1522: Attending MD Review Statement Attending Statement Attending MD Statement: examined this patient, discuss w/resident/PA/CERTIFIED REGISTERED LOCKSMITH, agreed w/resident/PA/CERTIFIED REGISTERED LOCKSMITH, reviewed EMR data (avail) Attending Assessment/Plan: 56F PMH opiate abuse (on Suboxone), anxiety/depression/bipolar disorder admitted for left MCA acute stroke with right sided hemiparesis who was not a candidate for tPA due to time frame of symptoms. Patient is non-verbal but understands when spoken to and can nod and shake her head. Still having right sided hemiparesis but able to walk with PT today with assistance on right side. PEG placed without complications. Tube feeds had been started, but patient started swallowing, and passed swallow eval on 07/05. Tube feeds have now been stopped and patient is taking PO well. 1. Left MCA acute stroke 2. Right sided hemiparesis 3. Unable to swallow 4. Depression Plan - PEG to stay in place for 6 weeks, then re-evaluation by GI - Continue ASA, statin - Continue home medications - Continue to work with PT - Stable for discharge to rehab
--- NOTE | 2016-07-06 10:57 | NUR ---
PT IV AND 24 HOUR EXTENSION , PT VERY DIFFICULT STICK AND NO ACCESS IS NEEDED AT THIS TIME PER DR. EVANGELISTA.
--- NOTE | 2016-07-06 14:58 | PN- Psychiatry ---
Assessment/Plan Impression: Identifying Info: 56 yo engaged CF presented to ED on 06/20/16 right facial droop, slurred speech and right-sided weaknes. Subsequently dx with CVA and aspiration PNA and admitted. Interviewed briefly on 2NA. SUBJECTIVE Pt is aphasic and responds to interview questions by noding and shaking head. Reports she feels like her mood is well controlled on her current meds. Would not like to make any changes at this time. OBJECTIVE Mental Status Exam Presentation/Appearance: Cooperative with evaluation. Hospital garb. Orientation: Pt is grossly oriented to self and situation. Sensorium: Awake and alert Eye contact: Appropriate Affect: Somewhat blunted Mood: Denies mood disturbance Depression: Denies Anxiety: Denies Thought Content: - Denies SI/HI, AH/VH - Denies Hopeless/Helpless Thoughts Thought Process: Linear Speech: Aphasic Judgment: Intact Insight: Intact Cognition: Memory: Grossly intact Attention/Concentration: Grossly intact ASSESSMENT Differential diagnosis Bipolar disorder History of opioid dependence, now on partial agonist therapy, Suboxone Suggestion: 1. Please continue current psychotropic meds as currently ordered. 2. Pt is not threat to self or others, is not gravely disabled. Thank for including psychiatry in this case. Please reconsult as needed. Subjective Subjective: .
[2016-07-06 15:27] VITALS: BP 110/68
[2016-07-06 22:20] VITALS: BP 112/60
[2016-07-07 06:15] VITALS: BP 116/64
--- NOTE | 2016-07-07 09:27 | PN- Housestaff ---
FLACA JACKSON 07/07/16 0927: Subjective Follow-up For: CVA B/L carotid stenosis Depression Subjective: Seen and examined patient, offers no complaints. Review of Systems Constitutional: Denies: chills, diaphoresis, fever, malaise, weakness, unexplained weight loss. Cardiovascular: Denies: chest pain, edema, orthopena, palpitations, peripheral edema, syncope. Respiratory: Denies: cough, hemoptysis, orthopnea, short of breath, sputum production, stridor, wheezing. Gastrointestinal: Denies: abdominal pain. Objective Last 24 Hrs of Vital Signs/I&O Vital Signs Date Time Temp Pulse Resp B/P Pulse O2 O2 Flow FiO2 Ox Delivery Rate 07/07 0615 98.0 72 20 116/64 92 Room Air 07/06 2220 98.6 77 20 112/60 90 Room Air 07/06 1527 97.8 80 20 110/68 92 Intake & Output 07/07 1600 07/07 0800 07/07 0000 Intake Total 700 60 130 Output Total Balance 700 60 130 Intake, IV 10 Intake, Oral 700 60 120 Physical Exam General Appearance: Alert, Oriented X3, No Acute Distress Cardiovascular: Regular Rate, Normal S1, Normal S2 Lungs: Normal Air Movement Abdomen: peg tube in place Extremities: right hemiparesis Current Medications: Current Medications Sig/Eduardo Start time Last Medication Dose Route Stop Time Status Admin Acetaminophen 1,000 MG Q6H PRN 07/01 2145 AC 07/01 N/A 1 UNIT IV 2156 Acetaminophen 650 MG Q6 PRN 06/20 1730 AC 06/27 PO 2142 Aspirin 81 MG DAILY 06/21 1000 AC 07/07 PO 1015 Atorvastatin Calcium 80 MG 1700 06/20 1700 AC 07/06 PO 1708 Bisacodyl 10 MG Q12P PRN 06/26 1245 AC 07/05 [place] 1159 Buprenorphine/ 1 TAB BID 06/21 1000 AC 07/07 Naloxone SL 1030 Cyclosporine 1 GTT Q12 06/20 2200 AC 07/07 OPH 1029 Enoxaparin Sodium 40 MG DAILY 07/02 1000 AC 07/07 SC 1017 Famotidine 20 MG DAILY 07/06 1000 AC 07/07 PO 1016 Fluoxetine HCl 20 MG DAILY 06/27 1308 AC 07/07 PO 1016 Magnesium Oxide 400 MG DAILY 06/24 1000 AC 07/07 PO 1016 Nystatin 5 ML 4 TIMES/DAY 07/05 1400 AC 07/07 PO 1005 Olanzapine 5 MG AT BEDTIME 06/27 2200 AC 07/06 PO 2135 Patient Medication 1 ED .[facility] ONE 07/07 1327 [facility] 07/07 1328 Assessment/Plan Assessment: 56 -year-old woman with PMH signficant for opiate abuse (on suboxone from 2 yrs ), anxiety, depression, bipolar disorder initially admitted to ICU for new left MCA territory infarct outside timeframe for TPA, continues to have neurological deficits including dysphagia, status post PEG tube placement. Currently tolerating her by mouth diet and working well with PT plan: Left MCA territory infarct * Tolerating diet, patient will have the PEG tube in place for the next 6-8 weeks and then it will be removed at that time * on Aspirin 81mg, atorvastatin 80 * acute rehabilitation upon discharge * Dynamically significant bilateral carotid stenosis and left middle cerebral artery stenosis, follow-up with vascular as upon discharge * ECHO shows normal left ventricular EF at more than 65% * Neurology and vascular on board appreciate their recommendations History of opiate abuse on suboxone * Continue Suboxone BID SL History of anxiety/depression/bipolar disorder * fluoxetine and Olanzapine restarted DVT prophylaxis * ALPS * Lovenox Code Status * Full Code AWAITING BED FOR STR Problem List: 1. CVA (cerebral vascular accident) 2. Aspiration pneumonia 3. Dysphagia 4. Malnutrition Pain Ratin Pain Location: Not applicable Pain Goal: Pain 4 or less Pain Plan: Current regimen Tomorrow's Labs & Rationales: None required PRECIOUS EVANGELISTA MD 07/07/16 1451: Attending MD Review Statement Attending Statement Attending MD Statement: examined this patient, discuss w/resident/PA/APARTMENT COMMUNITY MANAGER, agreed w/resident/PA/APARTMENT COMMUNITY MANAGER, reviewed EMR data (avail) Attending Assessment/Plan: 56F PMH opiate abuse (on Suboxone), anxiety/depression/bipolar disorder admitted for left MCA acute stroke with right sided hemiparesis who was not a candidate for tPA due to time frame of symptoms. Patient is non-verbal but understands when spoken to and can nod and shake her head. Still having right sided hemiparesis but able to walk with PT today with assistance on right side. PEG placed without complications. Tube feeds had been started, but patient started swallowing, and passed swallow eval on 07/05. Tube feeds have now been stopped and patient is taking PO well. 1. Left MCA acute stroke 2. Right sided hemiparesis 3. Unable to swallow 4. Depression Plan - PEG to stay in place for 6 weeks, then re-evaluation by GI - Continue ASA, statin - Continue home medications - Continue to work with PT - Stable for discharge to rehab
[2016-07-07 15:20] VITALS: BP 108/60
[2016-07-07 23:35] VITALS: BP 116/66
[2016-07-08 06:31] VITALS: BP 110/60
--- NOTE | 2016-07-08 07:28 | PN- Housestaff ---
FLACA JACKSON 07/08/16 0728: Subjective Follow-up For: CVA B/L carotid stenosis Depression Subjective: Seen and examined patient, no overnight. Offers no complaints. Review of Systems Constitutional: Denies: chills, diaphoresis, fever, malaise, weakness, unexplained weight loss. Cardiovascular: Denies: chest pain, edema, orthopena, palpitations, peripheral edema, syncope. Respiratory: Denies: cough, hemoptysis, orthopnea, short of breath, sputum production, stridor, wheezing. Gastrointestinal: Denies: abdominal pain. Objective Last 24 Hrs of Vital Signs/I&O Vital Signs Date Time Temp Pulse Resp B/P Pulse O2 O2 Flow FiO2 Ox Delivery Rate 07/08 0631 98.1 92 20 110/60 91 Room Air 07/07 2335 97.7 72 20 116/66 91 Room Air 07/07 1520 98.0 82 20 108/60 91 Intake & Output 07/08 1600 07/08 0800 07/08 0000 Intake Total 250 Output Total Balance 250 Intake, Oral 250 Physical Exam General Appearance: Alert, Oriented X3, Cooperative, No Acute Distress Cardiovascular: Regular Rate, Normal S1, Normal S2 Lungs: Clear to Auscultation, Normal Air Movement Abdomen: Normal Bowel Sounds, Soft, No Tenderness, peg tube in place, no signs of infection noted Current Medications: Current Medications Sig/Eduardo Start time Last Medication Dose Route Stop Time Status Admin Acetaminophen 650 MG .STK-MED ONE 07/07 1608 DC PO 07/07 1609 Acetaminophen 1,000 MG Q6H PRN 07/01 2145 AC 07/01 N/A 1 UNIT IV 2156 Acetaminophen 650 MG Q6 PRN 06/20 1730 AC 07/07 PO 1629 Aspirin 81 MG DAILY 06/21 1000 AC 07/07 PO 1015 Atorvastatin Calcium 80 MG 1700 06/20 1700 AC 07/07 PO 1629 Bisacodyl 10 MG Q12P PRN 06/26 1245 AC 07/05 [place] 1159 Buprenorphine/ 1 TAB BID 06/21 1000 AC 07/07 Naloxone SL 2119 Cyclosporine 1 GTT Q12 06/20 2200 AC 07/07 OPH 2119 Enoxaparin Sodium 40 MG DAILY 07/02 1000 AC 07/07 SC 1017 Famotidine 20 MG DAILY 07/06 1000 AC 07/07 PO 1016 Fluoxetine HCl 20 MG DAILY 06/27 1308 AC 07/07 PO 1016 Magnesium Oxide 400 MG DAILY 06/24 1000 AC 07/07 PO 1016 Nystatin 5 ML 4 TIMES/DAY 07/05 1400 AC 07/07 PO 211 Olanzapine 5 MG AT BEDTIME 06/27 2200 AC 07/07 PO 211 Patient Medication 1 ED .[facility] 07/07 1327 [facility] 07/07 1328 Assessment/Plan Assessment: 56 year-old woman with PMH signficant for opiate abuse (on suboxone from 2 yrs), anxiety, depression, bipolar disorder initially admitted to ICU for new left MCA territory infarct outside timeframe for TPA, continues to right hemiparesis and dysarthria, status post PEG tube placement which is not in use currently. plan: Left MCA territory infarct * Tolerating diet, patient will have the PEG tube in place for the next 6-8 weeks and then it will be removed at that time, working well with PT * on Aspirin 81mg, atorvastatin 80 * acute rehabilitation upon discharge * Dynamically significant bilateral carotid stenosis and left middle cerebral artery stenosis, follow-up with vascular as upon discharge * ECHO shows normal left ventricular EF at more than 65% * Neurology and vascular on board appreciate their recommendations History of opiate abuse on suboxone * Continue Suboxone BID SL History of anxiety/depression/bipolar disorder * fluoxetine and Olanzapine restarted DVT prophylaxis * ALPS * Lovenox Code Status * Full Code AWAITING BED FOR STR Problem List: 1. Aspiration pneumonia 2. CVA (cerebral vascular accident) 3. Dysphagia Pain Ratin Pain Location: na Pain Goal: Pain 4 or less Pain Plan: current regimen Tomorrow's Labs & Rationales: none required PRECIOUS EVANGELISTA MD 07/08/16 1055: Attending MD Review Statement Attending Statement Attending MD Statement: examined this patient, discuss w/resident/PA/BICYCLE II ASSEMBLER, agreed w/resident/PA/BICYCLE II ASSEMBLER, reviewed EMR data (avail) Attending Assessment/Plan: 56F PMH opiate abuse (on Suboxone), anxiety/depression/bipolar disorder admitted for left MCA acute stroke with right sided hemiparesis who was not a candidate for tPA due to time frame of symptoms. Patient is non-verbal but understands when spoken to and can nod and shake her head. Still having right sided hemiparesis but able to walk with PT today with assistance on right side. PEG placed without complications. Tube feeds had been started, but patient started swallowing, and passed swallow eval on 07/05. Tube feeds have now been stopped and patient is taking PO well. 1. Left MCA acute stroke 2. Right sided hemiparesis 3. Unable to swallow 4. Depression Plan - PEG to stay in place for 6 weeks, then re-evaluation by GI - Continue ASA, statin - Continue home medications - Continue to work with PT - Stable for discharge to rehab
[2016-07-08 14:06] VITALS: BP 122/70
[2016-07-08 22:25] VITALS: BP 120/70
[2016-07-09 06:23] VITALS: BP 142/80
--- NOTE | 2016-07-09 09:13 | PN- Housestaff ---
DEMOND SUN,FARAZ 07/09/16 0913: Subjective Follow-up For: CVA, bilateral carotid stenosis, depression Complaints: no complaints Subjective: I examined the patient today. No complaints overnight. Vitals stable overnight , no overnight issues. Review of Systems Constitutional: Reports: no symptoms. Cardiovascular: Reports: no symptoms. Respiratory: Reports: no symptoms. Gastrointestinal: Reports: no symptoms. Objective Last 24 Hrs of Vital Signs/I&O Vital Signs Date Time Temp Pulse Resp B/P Pulse O2 O2 Flow FiO2 Ox Delivery Rate 07/09 1529 97.7 93 20 120/70 94 07/09 0623 98.2 79 18 142/80 93 Room Air 07/08 2225 99.4 87 20 120/70 91 Room Air Intake & Output 07/09 1600 07/09 0800 07/09 0000 Intake Total 1300 120 120 Output Total Balance 1300 120 120 Intake, Oral 1300 120 120 Number 0 1 Bowel Movements Physical Exam General Appearance: Alert, Oriented X3, Cooperative, No Acute Distress Cardiovascular: Regular Rate, Normal S1, Normal S2 Lungs: Clear to Auscultation, Normal Air Movement Abdomen: Normal Bowel Sounds, Soft, No Tenderness Assessment/Plan Assessment: 56 year-old woman with PMH signficant for opiate abuse (on suboxone from 2 yrs), anxiety, depression, bipolar disorder initially admitted to ICU for new left MCA territory infarct outside timeframe for TPA, continues to right hemiparesis and dysarthria, status post PEG tube placement which is not in use currently. plan: No changes over the weekend (Monday). Patient has pending a rehabilitation bed. Left MCA territory infarct * Tolerating diet, patient will have the PEG tube in place for the next 6-8 weeks and then it will be removed at that time, working well with PT * on Aspirin 81mg, atorvastatin 80 * acute rehabilitation upon discharge * Dynamically significant bilateral carotid stenosis and left middle cerebral artery stenosis, follow-up with vascular as upon discharge * ECHO shows normal left ventricular EF at more than 65% * Neurology and vascular on board appreciate their recommendations History of opiate abuse on suboxone * Continue Suboxone BID SL History of anxiety/depression/bipolar disorder * fluoxetine and Olanzapine DVT prophylaxis * ALPS * Lovenox Code Status * Full Code AWAITING BED FOR STR Problem List: 1. CVA (cerebral vascular accident) 2. Aspiration pneumonia 3. Malnutrition Pain Ratin Pain Location: - Pain Goal: Remain pain free Pain Plan: When necessary Tomorrow's Labs & Rationales: - JEAN CARLOS SUNKAMIRADAMES 07/09/16 1610: Attending MD Review Statement Attending Statement Attending MD Statement: examined this patient, discuss w/resident/PA/SANDER AND BUFFER, agreed w/resident/PA/SANDER AND BUFFER, reviewed EMR data (avail) Attending Assessment/Plan: 56F PMH opiate abuse (on Suboxone), anxiety/depression/bipolar disorder admitted for left MCA acute stroke with right sided hemiparesis who was not a candidate for tPA due to time frame of symptoms. Patient is non-verbal but understands when spoken to and can nod and shake her head. Still having right sided hemiparesis but able to walk with PT today with assistance on right side. PEG placed without complications. Tube feeds had been started, but patient started swallowing, and passed swallow eval on 07/05. Tube feeds have now been stopped and patient is taking PO well. 1. Left MCA acute stroke 2. Right sided hemiparesis 3. Unable to swallow 4. Depression Plan - PEG to stay in place for 6 weeks, then re-evaluation by GI - Continue ASA, statin - Continue home medications - Continue to work with PT - Stable for discharge to rehab
--- NOTE | 2016-07-09 11:00 | NUR ---
PT REPORTS FEELING TOO "FULL" AT THIS TIME TO TAKE MEDICATIONS. WILL HOLD MEDICATIONS UNTIL LATER. FARAZ LAGOS MD MADE AWARE.
[2016-07-09 15:29] VITALS: BP 120/70
[2016-07-09 22:23] VITALS: BP 120/70
[2016-07-10 06:34] VITALS: BP 128/74
--- NOTE | 2016-07-10 06:46 | NUR ---
PT HAS NOT VOIDED ALL CUPROUS CHLORIDE OPERATOR; PT BLADDER SCANNED WITH O ML PRESENT; PRINCIPAL TECHNICAL ARCHITECT A\AUTOMOTIVE BUYER NOTIFIE OF FINDINGS; NO FURTHER ORDERS AT THIS TIME; WILL CONTINUE TO MONITOR.
--- NOTE | 2016-07-10 08:30 | PN- Housestaff ---
FLACA JACKSON 07/10/16 0830: Subjective Follow-up For: CVA B/L carotid stenosis Depression Subjective: seen and examined pt. Denies fever, chills, chest pain, shortness of breath. Review of Systems Constitutional: Denies: chills, diaphoresis, fever, malaise, weakness, unexplained weight loss. Cardiovascular: Denies: chest pain, edema, orthopena, palpitations, peripheral edema, syncope. Respiratory: Denies: cough, hemoptysis, orthopnea, short of breath, sputum production, stridor, wheezing. Objective Last 24 Hrs of Vital Signs/I&O Vital Signs Date Time Temp Pulse Resp B/P Pulse O2 O2 Flow FiO2 Ox Delivery Rate 07/10 0800 94 Nasal 2.0L Cannula 07/10 0634 98.5 70 20 128/74 94 Nasal 2.0L Cannula 07/10 0000 94 Nasal 2.0L Cannula 07/09 2307 92 Nasal 2.0L Cannula 07/09 2223 98.3 77 20 120/70 90 Room Air 07/09 1529 97.7 93 20 120/70 94 Intake & Output 07/10 1600 07/10 0800 07/10 0000 Intake Total 500 260 120 Output Total 0 Balance 500 260 120 Intake, IV 0 Intake, Oral 500 260 120 Output, Urine 0 Physical Exam General Appearance: Alert, Oriented X3, Cooperative, No Acute Distress Cardiovascular: Normal S1, Normal S2 Lungs: Clear to Auscultation, Normal Air Movement Abdomen: Normal Bowel Sounds, Soft, peg tube in place Current Medications: Current Medications Sig/Eduardo Start time Last Medication Dose Route Stop Time Status Admin Acetaminophen 1,000 MG Q6H PRN 07/01 2145 AC 07/01 N/A 1 UNIT IV 2156 Acetaminophen 650 MG Q6 PRN 06/20 1730 AC 07/09 PO 0612 Aspirin 81 MG DAILY 06/21 1000 AC 07/10 PO 1142 Atorvastatin Calcium 80 MG 1700 06/20 1700 AC 07/09 PO 1639 Bisacodyl 10 MG Q12P PRN 06/26 1245 AC 07/05 MT 1159 Buprenorphine/ 1 TAB BID 06/21 1000 AC 07/10 Naloxone SL 1143 Cyclosporine 1 GTT Q12 06/20 2200 AC 07/09 OPH 2137 Enoxaparin Sodium 40 MG DAILY 07/02 1000 AC 07/10 SC 1143 Famotidine 20 MG DAILY 07/06 1000 AC 07/10 PO 1143 Fluoxetine HCl 20 MG DAILY 06/27 1308 AC 07/10 PO 1143 Magnesium Oxide 400 MG DAILY 06/24 1000 AC 07/10 PO 1143 Nystatin 5 ML 4 TIMES/DAY 07/05 1400 AC 07/10 PO 1144 Olanzapine 5 MG AT BEDTIME 06/27 2200 AC 07/09 PO 2136 Sodium Chloride 1,000 ML Q13H 07/10 0645 DC IV 07/10 1944 Last 24 Hrs of Lab/Edgar Results Last 24 Hrs of Labs/Mics: Laboratory Tests 07/10/16 0659: Anion Gap 13, Estimated GFR > 60, BUN/Creatinine Ratio 23.3 Assessment/Plan Assessment: 56 year-old woman with PMH signficant for opiate abuse (on suboxone from 2 yrs), anxiety, depression, bipolar disorder initially admitted to ICU for new left MCA territory infarct outside timeframe for TPA, continues to right hemiparesis and dysarthria, status post PEG tube placement which is not in use currently. overnight she has no UO, bladder scan showed 550cc. she later voided on her own plan: Left MCA territory infarct * Tolerating diet, patient will have the PEG tube in place for the next 6-8 weeks and then it will be removed at that time, working well with PT * on Aspirin 81mg, atorvastatin 80 * acute rehabilitation upon discharge * Dynamically significant bilateral carotid stenosis and left middle cerebral artery stenosis, follow-up with vascular as upon discharge * ECHO shows normal left ventricular EF at more than 65% * Neurology and vascular on board appreciate their recommendations History of opiate abuse on suboxone * Continue Suboxone BID SL History of anxiety/depression/bipolar disorder * fluoxetine and Olanzapine DVT prophylaxis * ALPS * Lovenox Code Status * Full Code AWAITING BED FOR STR Problem List: 1. CVA (cerebral vascular accident) 2. Aspiration pneumonia 3. Malnutrition Pain Ratin Pain Location: na Pain Goal: Pain 4 or less Pain Plan: current regimen Tomorrow's Labs & Rationales: none required PRECIOUS EVANGELISTA MD 07/10/16 1228: Attending MD Review Statement Attending Statement Attending MD Statement: examined this patient, discuss w/resident/PA/DIRECTOR OF CUSTOMER SERVICE, agreed w/resident/PA/DIRECTOR OF CUSTOMER SERVICE, reviewed EMR data (avail) Attending Assessment/Plan: 56F PMH opiate abuse (on Suboxone), anxiety/depression/bipolar disorder admitted for left MCA acute stroke with right sided hemiparesis who was not a candidate for tPA due to time frame of symptoms. Patient is non-verbal but understands when spoken to and can nod and shake her head. Still having right sided hemiparesis but able to walk with PT today with assistance on right side. PEG placed without complications. Tube feeds had been started, but patient started swallowing, and passed swallow eval on 07/05. Tube feeds have now been stopped and patient is taking PO well. Overnight experienced urinary retention, with straight cath producing 550mL of urine, possibly neurogenic. 1. Left MCA acute stroke 2. Right sided hemiparesis 3. Unable to swallow 4. Depression Plan - Straight cath tonight, if still retaining then place Albright catheter and call urology tomorrow morning - PEG to stay in place for 6 weeks, then re-evaluation by GI - Continue ASA, statin - Continue home medications - Continue to work with PT - Stable for discharge to rehab
[2016-07-10 15:33] VITALS: BP 120/70
[2016-07-10 22:39] VITALS: BP 124/60
[2016-07-11 06:42] VITALS: BP 130/66
--- NOTE | 2016-07-11 08:52 | PN- Housestaff ---
FLACA JACKSON 07/11/16 0849: Subjective Follow-up For: CVA B/L carotid stenosis Depression Subjective: Seen and examined patient offers no complaints. Review of Systems Constitutional: Denies: chills, diaphoresis, fever, malaise, weakness, unexplained weight loss. Cardiovascular: Denies: chest pain, edema, orthopena, palpitations, peripheral edema, syncope. Respiratory: Denies: cough, hemoptysis, orthopnea, short of breath, sputum production, stridor, wheezing. Gastrointestinal: Reports: abdominal pain, constipation, diarrhea. Objective Last 24 Hrs of Vital Signs/I&O Vital Signs Date Time Temp Pulse Resp B/P Pulse O2 O2 Flow FiO2 Ox Delivery Rate 07/11 0642 96.7 67 20 130/66 96 Nasal 2.0L Cannula 07/11 0000 Nasal 2.0L Cannula 07/10 2239 98.0 78 20 124/60 95 Nasal Cannula 07/10 1600 92 Room Air 07/10 1533 97.6 75 20 120/70 95 Intake & Output 07/11 1600 07/11 0800 07/11 0000 Intake Total 100 480 Output Total Balance 100 480 Intake, Oral 100 480 Physical Exam General Appearance: Alert, Oriented X3, Cooperative, No Acute Distress Cardiovascular: Normal S1, Normal S2 Lungs: Clear to Auscultation, Normal Air Movement Abdomen: Normal Bowel Sounds, Soft, No Tenderness, PEG tube in place Current Medications: Current Medications Sig/Eduardo Start time Last Medication Dose Route Stop Time Status Admin Acetaminophen 1,000 MG Q6H PRN 07/01 2145 AC 07/01 N/A 1 UNIT IV 2156 Acetaminophen 650 MG Q6 PRN 06/20 1730 AC 07/09 PO 0612 Aspirin 81 MG DAILY 06/21 1000 AC 07/10 PO 1142 Atorvastatin Calcium 80 MG 1700 06/20 1700 AC 07/10 PO 1701 Bisacodyl 10 MG Q12P PRN 06/26 1245 AC 07/05 FL 1159 Buprenorphine/ 1 TAB BID 06/21 1000 AC 07/10 Naloxone SL 2145 Cyclosporine 1 GTT Q12 06/20 2200 AC 07/10 OPH 2146 Enoxaparin Sodium 40 MG DAILY 07/02 1000 AC 07/10 SC 1143 Famotidine 20 MG DAILY 07/06 1000 AC 07/10 PO 1143 Fluoxetine HCl 20 MG DAILY 06/27 1308 AC 07/10 PO 1143 Magnesium Oxide 400 MG DAILY 06/24 1000 AC 07/10 PO 1143 Nystatin 5 ML 4 TIMES/DAY 07/05 1400 AC 07/10 PO 2146 Olanzapine 5 MG AT BEDTIME 06/27 2200 AC 07/10 PO 2146 Sodium Chloride 1,000 ML Q13H 07/10 0645 DC IV 07/10 1944 Assessment/Plan Assessment: 56 year-old woman with PMH signficant for opiate abuse (on suboxone from 2 yrs), anxiety, depression, bipolar disorder initially admitted to ICU for new left MCA territory infarct outside timeframe for TPA, continues to right hemiparesis and dysarthria, status post PEG tube placement which is not in use currently. No issues overnight medically stable currently awaiting rehab placement. plan: Left MCA territory infarct * Tolerating diet, patient will have the PEG tube in place for the next 6-8 weeks and then it will be removed at that time, working well with PT * on Aspirin 81mg, atorvastatin 80 * acute rehabilitation upon discharge * Dynamically significant bilateral carotid stenosis and left middle cerebral artery stenosis, follow-up with vascular as upon discharge * ECHO shows normal left ventricular EF at more than 65% * Neurology and vascular on board appreciate their recommendations History of opiate abuse on suboxone * Continue Suboxone BID SL History of anxiety/depression/bipolar disorder * fluoxetine and Olanzapine DVT prophylaxis * ALPS * Lovenox Code Status * Full Code AWAITING BED FOR STR Problem List: 1. CVA (cerebral vascular accident) 2. Aspiration pneumonia Pain Ratin Pain Location: Not applicable Pain Goal: Pain 4 or less Pain Plan: Current regimen Tomorrow's Labs & Rationales: None required PRECIOUS EVANGELISTA MD 07/11/16 1207: Attending MD Review Statement Attending Statement Attending MD Statement: examined this patient, discuss w/resident/PA/CLERK TO JUSTICE, agreed w/resident/PA/CLERK TO JUSTICE, reviewed EMR data (avail) Attending Assessment/Plan: 56F PMH opiate abuse (on Suboxone), anxiety/depression/bipolar disorder admitted for left MCA acute stroke with right sided hemiparesis who was not a candidate for tPA due to time frame of symptoms. Patient is non-verbal but understands when spoken to and can nod and shake her head. Still having right sided hemiparesis but able to walk with PT today with assistance on right side. PEG placed without complications. Tube feeds had been started, but patient started swallowing, and passed swallow eval on 07/05. Tube feeds have now been stopped and patient is taking PO well. Patient now voiding on her own without requiring catheterization. 1. Left MCA acute stroke 2. Right sided hemiparesis 3. Unable to swallow 4. Depression Plan - PEG to stay in place for 6 weeks, then re-evaluation by GI - Continue ASA, statin - Continue home medications - Continue to work with PT - Stable for discharge to rehab
[2016-07-11 14:12] VITALS: BP 112/90
--- NOTE | 2016-07-11 16:26 | PN- Psychiatry ---
Assessment/Plan Impression: Shara was not seen by us today, but we were asked to comment on the idea of tapering her Suboxone to off. I understand from the housestaff resident that the patient is not in agreement with this proposed plan. This taper could be attempted, hopefully with the patient's agreement, but would be a slow taper over approximately 8 weeks, usually no more than 2 mg of buprenorphine per week reduction. For example, she is currently on buprenorphine/naloxone (Suboxone) 8 mg/2 mg SL tab 2X/day, for a total of 8 mg daily of buprenorphine. Week one: Suboxone 8 mg/2 mg every morning and Suboxone 6 mg/1.5 mg every evening Week two: Suboxone 6 mg/1.5 mg 2X/day Week three: Suboxone 6 mg/1.5 mg every morning and Suboxone 4 mg/1 mg, and so forth for 8 weeks. Suggestion: 1. Please advise if we can be of further assistance regarding the Suboxone taper , otherwise, please continue Suboxone 8/2 mg SL 2X/day. 2. Continue fluoxetine 20 mg PO daily and olanzapine 5 mg PO at bedtime. Thank-you for asking us to participate in Shara's care. Please reconsult if other psychiatric questions arise. Juan J Jaquez, FLORECITA, Pager [phone] Subjective Subjective: The patient was not seen today by our service. Objective Last 24 Hrs of Vital Signs/I&O Vital Signs Date Time Temp Pulse Resp B/P Pulse O2 O2 Flow FiO2 Ox Delivery Rate 07/11 1412 97.6 79 20 112/90 93 Room Air 07/11 1020 Nasal 3.0L Cannula 07/11 0642 96.7 67 20 130/66 96 Nasal 2.0L Cannula 07/11 0000 Nasal 2.0L Cannula 07/10 2239 98.0 78 20 124/60 95 Nasal Cannula Intake & Output 07/11 1600 07/11 0800 07/11 0000 Intake Total 100 480 Output Total Balance 100 480 Intake, Oral 100 480 Current Medications Sig/Eduardo Start time Last Medication Dose Route Stop Time Status Admin Acetaminophen 1,000 MG Q6H PRN 07/01 2145 AC 07/01 N/A 1 UNIT IV 2156 Acetaminophen 650 MG Q6 PRN 06/20 1730 AC 07/09 PO 0612 Aspirin 81 MG DAILY 06/21 1000 AC 07/11 PO 0944 Atorvastatin Calcium 80 MG 1700 12/26 1700 AC 07/10 PO 1701 Bisacodyl 10 MG Q12P PRN 06/26 1245 AC 07/05 [place] 1159 Buprenorphine/ 1 TAB BID 06/21 1000 AC 07/11 Naloxone SL 0945 Cyclosporine 1 GTT Q12 06/20 2200 AC 07/11 OPH 0945 Enoxaparin Sodium 40 MG DAILY 07/02 1000 AC 07/11 SC 0944 Famotidine 20 MG DAILY 07/06 1000 AC 07/11 PO 0944 Fluoxetine HCl 20 MG DAILY 06/27 1308 AC 07/11 PO 0944 Magnesium Oxide 400 MG DAILY 06/24 1000 AC 07/11 PO 0944 Nystatin 5 ML 4 TIMES/DAY 07/05 1400 AC 07/11 PO 1451 Olanzapine 5 MG AT BEDTIME 06/27 2199 AC 07/10 PO 2146
[2016-07-11 22:07] VITALS: BP 112/60
[2016-07-12 06:14] VITALS: BP 142/78
--- NOTE | 2016-07-12 07:28 | PN- Housestaff ---
FOZIA SUN,BROOKE 07/12/16 0728: Subjective Follow-up For: Left MCA CVA Left carotid stenosis Aspiration pneumonia Subjective: Patient seen and examined. She is seen lying flat in bed comfortably. She appears to be in no acute distress. She is somnolent and answering questions however when asked if she has any pain or complaints she shakes her head indicating no. Review of systems not obtainable. No overnight events reported. Review of Systems Constitutional: Reports: see HPI. Objective Last 24 Hrs of Vital Signs/I&O Vital Signs Date Time Temp Pulse Resp B/P Pulse O2 O2 Flow FiO2 Ox Delivery Rate 07/12 1402 98.2 85 20 112/60 93 Room Air 07/12 0614 98.0 75 20 142/78 94 Room Air 07/11 2207 97.7 73 20 112/60 92 Intake & Output 07/12 1600 07/12 0800 07/12 0000 Intake Total 50 Output Total 0 Balance 0 50 Intake, Oral 50 Output, Urine 0 Physical Exam General Appearance: Cooperative, No Acute Distress Other Physical Findings: General -thin, middle-aged woman in no acute distress HEENT - NCAT, PERRL, EOMI, anicteric sclera Cardio - S1, S2 w/o murmurs/gallops/rubs Resp - CTA bilaterally w/o wheezing/rhochi/crackles GI - soft, nontender, nondistended, bowel sounds present, PEG tube in place Current Medications: Current Medications Sig/Eduardo Start time Last Medication Dose Route Stop Time Status Admin Acetaminophen 1,000 MG Q6H PRN 07/01 2145 AC 07/01 N/A 1 UNIT IV 2156 Acetaminophen 650 MG Q6 PRN 06/20 1730 AC 07/09 PO 0612 Aspirin 81 MG DAILY 06/21 1000 AC 07/12 PO 1013 Atorvastatin Calcium 80 MG 1700 06/20 1700 AC 07/11 PO 1929 Bisacodyl 10 MG Q12P PRN 06/26 1245 AC 07/05 ID 1159 Buprenorphine/ 1 TAB BID 06/21 1000 07/12 Naloxone SL 1005 Cyclosporine 1 GTT Q12 06/20 2200 AC 07/12 OPH 1001 Enoxaparin Sodium 40 MG DAILY 07/02 1000 07/12 SC 1007 Famotidine 20 MG DAILY 07/06 1000 07/12 PO 1001 Fluoxetine HCl 20 MG DAILY 06/27 1308 AC 07/12 PO 1001 Magnesium Oxide 400 MG DAILY 06/24 1000 AC 07/12 PO 1013 Nystatin 5 ML 4 TIMES/DAY 07/05 1400 AC 07/12 PO 1424 Olanzapine 5 MG AT BEDTIME 06/27 2200 07/11 PO 2112 Assessment/Plan Assessment: Patient is awaiting placement at short-term rehabilitation. She is still maintained on Suboxone. Psychiatry consult recommended Suboxone tapering schedule in anticipation for discharge to [facility]. She currently has no active issues and is still operating an oral diet well. Awaiting Discharge to [facility] - On Suboxone taper Left MCA CVA: Patient admitted on 06/10/16 for evaluation of right sided weakness and found to have a left MCA CVA. Residual right sided weakness -Aspirin 81mg PO Daily -Atorvastatin 80mg PO Daily Dysphagia: Patient initially failed a bedside swallow evaluation for which a PEG tube was placed. She subsequently recovered swallow function and was placed on an oral diet. -PEG tube in placed, must remain for six weeks before removal Carotid Stenosis: -Vascular consult following -Follow up with vascular surgery upon discharge Opiate Abuse/Dependence: -Suboxone 1 TAB SL BID, taper as per psych -Psych consult History of anxiety/depression/bipolar disorder - continue fluoxetine, Olanzapine Pain plan: -Acetaminophen 650 mg by mouth every 6 hours as needed for pain 1-3 Diet - Regular Diet DVT PPx - ALPS/Lovenox Code Status - FULL CODE Problem List: 1. CVA (cerebral vascular accident) 2. Aspiration pneumonia 3. Dysphagia 4. Malnutrition Pain Ratin Pain Location: None Pain Goal: Remain pain free Pain Plan: As noted in plan Tomorrow's Labs & Rationales: None PRECIOUS EVANGELISTA MD 07/12/16 1109: Attending MD Review Statement Attending Statement Attending MD Statement: examined this patient, discuss w/resident/PA/PAPER TWISTER, agreed w/resident/PA/PAPER TWISTER, reviewed EMR data (avail) Attending Assessment/Plan: 56F PMH opiate abuse (on Suboxone), anxiety/depression/bipolar disorder admitted for left MCA acute stroke with right sided hemiparesis who was not a candidate for tPA due to time frame of symptoms. Patient is non-verbal but understands when spoken to and can nod and shake her head. Still having right sided hemiparesis but able to walk with PT today with assistance on right side. PEG placed without complications. Tube feeds had been started, but patient started swallowing, and passed swallow eval on 07/05. Tube feeds have now been stopped and patient is taking PO well. Patient now voiding on her own without requiring catheterization. 1. Left MCA acute stroke 2. Right sided hemiparesis 3. Unable to swallow 4. Depression Plan - PEG to stay in place for 6 weeks, then re-evaluation by GI - Continue ASA, statin - Continue home medications - Continue to work with PT - Stable for discharge to rehab
[2016-07-12 14:02] VITALS: BP 112/60
[2016-07-12 22:27] VITALS: BP 110/60
[2016-07-13 06:30] VITALS: BP 128/70
--- NOTE | 2016-07-13 09:52 | PN- Housestaff ---
FOZIA SUN,BROOKE 07/13/16 0952: Subjective Follow-up For: Left MCA CVA Left carotid stenosis Aspiration pneumonia Subjective: Patient seen and examined. She is seen sitting in her chair at bedside resting comfortably. She appears to be in no acute distress. She is accompanied by her family member whom is up-to-date about her clinical condition and has no further questions at this time. She still cannot communicate effectively or move the right side of her body. She appears to follow commands and understand when spoken to. She denies any headache, fever, chills, chest pain, palpitations, shortness of breath, cough, nausea, vomiting, diarrhea. No overnight events reported. Review of Systems Constitutional: Reports: see HPI. Objective Last 24 Hrs of Vital Signs/I&O Vital Signs Date Time Temp Pulse Resp B/P Pulse O2 O2 Flow FiO2 Ox Delivery Rate 07/13 1438 98.0 77 18 130/70 98 Room Air 07/13 0630 98.5 80 18 128/70 91 Room Air 07/12 2227 98.0 79 20 110/60 90 Room Air Intake & Output 07/13 1600 07/13 0800 07/13 0000 Intake Total 720 240 Output Total Balance 720 240 Intake, Oral 720 240 Number 0 Bowel Movements Physical Exam General Appearance: Alert, Cooperative, No Acute Distress Other Physical Findings: General -thin middle-aged woman in no acute distress HEENT - NCAT, PERRL, EOMI, anicteric sclera Cardio - S1, S2 w/o murmurs/gallops/rubs Resp - CTA bilaterally w/o wheezing/rhochi/crackles GI - soft, nontender, nondistended, bowel sounds present, PEG tube in place without any obvious drainage or surrounding erythema Neuro - Awake and alert, slurred/dysarthric speech with obvious right-sided hemiparesis, persistent right sided facial droop Extremities - no edema, pulses intact Current Medications: Current Medications Sig/Eduardo Start time Last Medication Dose Route Stop Time Status Admin Acetaminophen 1,000 MG Q6H PRN 07/01 2145 AC 07/01 N/A 1 UNIT IV 2156 Acetaminophen 650 MG Q6 PRN 06/20 1730 AC 07/09 PO 0612 Aspirin 81 MG DAILY 06/21 1000 AC 07/13 PO 1004 Atorvastatin Calcium 80 MG 1700 06/20 1700 AC 01/17 PO 1655 Bisacodyl 10 MG Q12P PRN 06/26 1245 AC 07/05 AR 1159 Buprenorphine/ 3 TAB BID 07/20 1000 AC Naloxone SL 07/27 0000 Buprenorphine/ 3 TAB QPM 07/13 2200 AC Naloxone SL 07/19 2201 Buprenorphine/ 1 TAB DAILY 07/13 1000 AC 07/13 Naloxone SL 07/20 0000 1004 Buprenorphine/ 1 TAB BID 06/21 1000 DC 07/12 Naloxone SL 2127 Cyclosporine 1 GTT Q12 06/20 2200 AC 07/13 OPH 1549 Enoxaparin Sodium 40 MG DAILY 07/02 1000 AC 07/13 SC 1005 Famotidine 20 MG DAILY 07/06 1000 AC 07/13 PO 1004 Fluoxetine HCl 20 MG DAILY 06/27 1308 AC 07/13 PO 1004 Magnesium Oxide 400 MG DAILY 06/24 1000 AC 07/13 PO 1004 Nystatin 5 ML 4 TIMES/DAY 07/05 1400 AC 07/13 PO 1549 Olanzapine 5 MG AT BEDTIME 06/27 2200 AC 07/12 PO 2127 Patient Medication [address] 07/13 1407 [facility] ED 07/13 1408 Assessment/Plan Assessment: Patient was set to be discharged to a short-term rehabilitation center located in [facility], however patient's family declined this offer as it was "too far". It was discussed with family members and it was decided that she will be discharged to home with physical therapy tomorrow morning. She is to follow up with GI as outpatient for removal of the PEG tube after it has been in place for 6 weeks. She is refusing to taper the Suboxone medication so she will be continued on at her current dose. Left MCA CVA: Patient admitted on 06/10/16 for evaluation of right sided weakness and found to have a left MCA CVA. Residual right sided weakness -Aspirin 81mg PO Daily -Atorvastatin 80mg PO Daily Dysphagia: Patient initially failed a bedside swallow evaluation for which a PEG tube was placed. She subsequently recovered swallow function and was placed on an oral diet. -PEG tube in placed, must remain for six weeks before removal Carotid Stenosis: -Vascular consult following -Follow up with vascular surgery upon discharge Opiate Abuse/Dependence: -Suboxone 1 TAB SL BID, taper as per psych -Psych consult History of anxiety/depression/bipolar disorder - continue fluoxetine, Olanzapine Pain plan: -Acetaminophen 650 mg by mouth every 6 hours as needed for pain 1-3 Diet - Regular Diet DVT PPx - ALPS/Lovenox Code Status - FULL CODE Problem List: 1. CVA (cerebral vascular accident) 2. Aspiration pneumonia 3. Dysphagia 4. Malnutrition Pain Ratin Pain Location: None Pain Goal: Pain 7 or less Pain Plan: As noted in plan Tomorrow's Labs & Rationales: None PRECIOUS EVANGELISTA MD 07/13/16 1627: Attending MD Review Statement Attending Statement Attending MD Statement: examined this patient, discuss w/resident/PA/TIPPLE BOSS, agreed w/resident/PA/TIPPLE BOSS, reviewed EMR data (avail) Attending Assessment/Plan: 56F PMH opiate abuse (on Suboxone), anxiety/depression/bipolar disorder admitted for left MCA acute stroke with right sided hemiparesis who was not a candidate for tPA due to time frame of symptoms. Patient is non-verbal but understands when spoken to and can nod and shake her head. Still having right sided hemiparesis but able to walk with PT today with assistance on right side. PEG placed without complications. Tube feeds had been started, but patient started swallowing, and passed swallow eval on 07/05. Tube feeds have now been stopped and patient is taking PO well. Patient now voiding on her own without requiring catheterization. 1. Left MCA acute stroke 2. Right sided hemiparesis 3. Unable to swallow 4. Depression Plan - PEG to stay in place for 6 weeks, then re-evaluation by GI - Continue ASA, statin - Continue home medications - Continue to work with PT
[2016-07-13 14:38] VITALS: BP 130/70
[2016-07-13 23:49] VITALS: BP 128/64
[2016-07-14 06:42] VITALS: BP 122/68
--- NOTE | 2016-07-14 07:10 | PN- Housestaff ---
FOZIA SUN,BROOKE 07/14/16 0710: Subjective Follow-up For: Left MCA CVA Left carotid stenosis Aspiration pneumonia Subjective: Patient seen and examined. She is seen sitting upright in bed resting comfortably. She is in good spirits and appears to be in no acute distress. Physical therapy evaluation determined that patient would not be safe to be discharged to home today, this was discussed with patient and she is requesting to leave AGAINST MEDICAL ADVICE. She denies any new complaints. Additionally she denies any headache, fever, chills, chest pain, shortness of breath, nausea, vomiting, diarrhea. No overnight events reported. Review of Systems Constitutional: Reports: see HPI. Objective Last 24 Hrs of Vital Signs/I&O Vital Signs Date Time Temp Pulse Resp B/P Pulse O2 O2 Flow FiO2 Ox Delivery Rate 07/14 0642 98.4 70 18 122/68 97 Room Air 07/13 2349 98.1 74 18 128/64 90 Room Air 07/13 1438 98.0 77 18 130/70 98 Room Air Intake & Output 07/14 1600 07/14 0800 07/14 0000 Intake Total 100 100 Output Total 100 Balance 100 0 Intake, Oral 100 100 Number 0 1 Bowel Movements Output, Urine 100 Physical Exam General Appearance: Alert, Oriented X3, Cooperative, No Acute Distress Other Physical Findings: General - thin middle aged woman in no acute distress HEENT - NCAT, PERRL, EOMI, anicteric sclera, on room air CVS - S1, S2 m/g/r Resp - CTA bilaterally, no crackles GI - soft, NT/ND, bowel sounds + Neuro - Awake and alert, persistent right sided facial droop, obvious right sided hemiparesis, speech slurred/dysarthric Extremities - distal pulses 2+, no BL LE edema Current Medications: Current Medications Sig/Eduardo Start time Last Medication Dose Route Stop Time Status Admin Acetaminophen 650 MG .STK-MED ONE 07/13 2130 DC PO 07/13 2131 Acetaminophen 1,000 MG Q6H PRN 07/01 2144 AC 07/01 N/A 1 UNIT IV 215 Acetaminophen 650 MG Q6 PRN 06/20 1730 AC 07/13 PO 214 Aspirin 81 MG DAILY 06/21 1000 AC 07/13 PO 1004 Atorvastatin Calcium 80 MG 1700 06/20 1700 AC 07/13 PO 1641 Bisacodyl 10 MG .STK-MED ONE 07/13 1911 DC [place] 07/13 1912 Bisacodyl 10 MG Q12P PRN 06/26 1245 AC 07/13 [place] 1916 Buprenorphine/ 3 TAB BID 07/20 1000 CAN Naloxone SL 07/27 0000 Buprenorphine/ 3 TAB QPM 07/13 2200 CAN Naloxone SL 07/19 2201 Buprenorphine/ 1 TAB BID 07/13 2200 AC 07/13 Naloxone SL 2142 Buprenorphine/ 1 TAB DAILY 07/13 1000 DC 07/13 Naloxone SL 07/20 0000 1004 Cyclosporine 1 GTT Q12 06/20 2200 AC 07/13 OPH 2142 Enoxaparin Sodium 40 MG DAILY 07/02 1000 AC 07/13 SC 1005 Famotidine 20 MG DAILY 07/06 1000 AC 07/13 PO 1004 Fluoxetine HCl 20 MG DAILY 06/27 1308 AC 07/13 PO 1004 Magnesium Oxide 400 MG DAILY 06/24 1000 AC 07/13 PO 1004 Nystatin 5 ML 4 TIMES/DAY 07/05 1400 AC 07/13 PO 2142 Olanzapine 5 MG AT BEDTIME 06/27 2200 AC 07/13 PO 2142 Patient Medication 1 ED .STK-MED ONE 07/13 1407 DC Teaching ED 07/13 1408 Assessment/Plan Assessment: Patient continues to feel well and has persistent neurologic deficits. Physical therapy evaluation determined that patient would not be safe to be discharged to home in her current state and further recommended placement in a short-term rehabilitation center. Patient and her family member disagreed with this and insisted upon leaving AGAINST MEDICAL ADVICE. Case management was informed of this and the appropriate services were arranged at home including home nursing/ physical therapy/occupational therapy and prescriptions for medical devices that will be required for her care including hospital bed, graciela lift, wheelchair, and commode for a period of 6 months with a reevaluation for their continued need at that time. Patient's height is 5 foot 7 and she weighs 142 pounds at time of discharge. Risks of leaving AGAINST MEDICAL ADVICE were discussed with patient including worsening of her current medical condition and potential injury at home for which they acknowledged an signed consent for. Outpatient follow-up was further emphasized with the patient including evaluation by vascular surgery, neurology, gastroenterology and her primary care provider. She was instructed to call 911 or return to the ED should her condition worsen. Left MCA CVA: Patient admitted on 06/10/16 for evaluation of right sided weakness and found to have a left MCA CVA. Residual right sided weakness -Aspirin 81mg PO Daily -Atorvastatin 80mg PO Daily Dysphagia: Patient initially failed a bedside swallow evaluation for which a PEG tube was placed. She subsequently recovered swallow function and was placed on an oral diet. -PEG tube in placed, must remain for six weeks before removal Carotid Stenosis: -Vascular consult following -Follow up with vascular surgery upon discharge Opiate Abuse/Dependence: -Suboxone 1 TAB SL BID, taper as per psych -Psych consult History of anxiety/depression/bipolar disorder - continue fluoxetine, Olanzapine Pain plan: -Acetaminophen 650 mg by mouth every 6 hours as needed for pain 1-3 Diet - Regular Diet DVT PPx - ALPS/Lovenox Code Status - FULL CODE Problem List: 1. CVA (cerebral vascular accident) 2. Aspiration pneumonia 3. Dysphagia 4. Malnutrition Pain Ratin Pain Location: None Pain Goal: Remain pain free Pain Plan: As noted in plan Tomorrow's Labs & Rationales: None Consulting Request: Consulting Specialty: Gastroenterology Consulting Physician: Dr. Jason Reason for Consult: PEG tube placement PRECIOUS EVANGELISTA MD 07/14/16 1209: Attending MD Review Statement Attending Statement Attending MD Statement: examined this patient, discuss w/resident/PA/PATIENT CENTERED CARE SPECIALIST, agreed w/resident/PA/PATIENT CENTERED CARE SPECIALIST, reviewed EMR data (avail) Attending Assessment/Plan: 56F PMH opiate abuse (on Suboxone), anxiety/depression/bipolar disorder admitted for left MCA acute stroke with right sided hemiparesis who was not a candidate for tPA due to time frame of symptoms. Patient is non-verbal but understands when spoken to and can nod and shake her head. Still having right sided hemiparesis but able to walk with PT today with assistance on right side. PEG placed without complications. Tube feeds had been started, but patient started swallowing, and passed swallow eval on 07/05. Tube feeds have now been stopped and patient is taking PO well. Had discussion with patient and family. Patient refusing STR and wishes to go home. credit union manager, physical therapy and I explained how going would be unsafe, as she requires assist of 2 to pivot and assistance to clear herself. We explained that it was less likely that she would walk again without intensive physical therapy and that her quality of life would suffer. We also explained risks of fall. Patient and family understand risks and wish to go home against medical advice. We will order patient supplies to be able to be discharged home. See PT note for full list. 1. Left MCA acute stroke 2. Right sided hemiparesis 3. Unable to swallow 4. Depression Plan - PEG to stay in place for 6 weeks, then re-evaluation by GI - Continue ASA, statin - Continue home medications - Continue to work with PT - Patient will leave AMA when hospital bed and other supplies are in place at home
--- NOTE | 2016-07-14 11:07 | Event Note ---
Event Note Event Note: Physical therapy evaluation determined that patient would not be safe to be discharged to home. This was conveyed to the patient and her family members for which they further refused to be discharged to a short-term rehabilitation center. At this time she is requesting to leave AGAINST MEDICAL ADVICE. Risks and benefits of this were discussed with patient including injury at home and worsening of her current medical condition. Case management was made aware of the current situation and scripts were provided for the needed medical devices. She will require a hospital bed, wheelchair, Lakhwinder lift, and commode for at least 6 months with reevaluation to take place at that time. Services at home are to be provided including physical therapy and nursing services as determined by case management pending insurance evaluation and approval. She was instructed to return to the hospital should her medical condition worsen and to follow-up with her care providers as previously instructed including vascular surgery, neurology, gastroenterology, and her primary care provider.
[2016-07-14] MEDS ORDERED: ATORVASTATIN CA80 M1 PO (14:15)
[2016-07-14] MEDS ORDERED: ASPIRIN81 M4 PO (14:15)
[2016-07-14] MEDS ORDERED: NYSTATIN100000 UNI PO (14:15)
[2016-07-14 14:16] VITALS: BP 110/60
[2016-07-14] MEDS ORDERED: BISAC-EVAC10 M1 PR (14:16)
[2016-07-14] MEDS ORDERED: TYLENOL325 M1 PO (14:16)
[2016-07-14] MEDS ORDERED: FAMOTIDINE20 M1 PO (14:16)
--- NOTE | 2016-07-14 14:47 | NUR ---
14:45- PT LEFT AMA WITH DAUGHTER AND FIANCE. AMA PAPERWORK SIGNED. SEE DISCHARGE DISPOSITION.
--- NOTE | 2016-07-14 15:08 | NUR ---
Late Entry: Aware of patients AMA discharge this afternoon. I was called this am by RN on floor. This patient (and her family) were interested in naming her daughter as her Healthcare Public Area Supervisor. I met with the patient, her daughter, Jerilyn and her friend Ryley. While Shara has sufferred a significant CVA, she is able to acknowledge that she understands and wishes to proceed with naming her daughter. Document executed and witnessed by myself and floor RN. Copy placed in medical record and original scanned.
== END 2016-07-14 14:45 | disposition left against medical advice (07) | DRG 45 ==
LOC: ERH 13:28 → ENPENDDIS 15:52 → CRI 15:52 → ERHI 15:52 → 2NA 15:52 → DELPENDDIS 15:52 → ERHI 17:22 → CRI 20:25 → 2NA 06-24 19:04
PROVIDERS: Emergency Medicine; Internal Medicine; Student in an Organized Health Care Education/Training Program; ADMIT Internal Medicine
PROC: 0DH63UZ Insertion of Feeding Device into Stomach, Percutaneous Approach (ICD-10-PCS; principal; 2016-07-01)
PROC: 3E0G76Z Introduction of Nutritional Substance into Upper GI, Via Natural or Artificial Opening (ICD-10-PCS; principal; 2016-07-01)
DX: I63.233 Cerebral infarction due to unspecified occlusion or stenosis of bilateral carotid arteries (principal); G81.91 Hemiplegia, unspecified affecting right dominant side; R47.01 Aphasia; I10 Essential (primary) hypertension; F17.210 Nicotine dependence, cigarettes, uncomplicated; R29.713 NIHSS score 13; F11.21 Opioid dependence, in remission; J69.0 Pneumonitis due to inhalation of food and vomit; J96.01 Acute respiratory failure with hypoxia; G93.6 Cerebral edema; F32.9 Major depressive disorder, single episode, unspecified
CPT/HCPCS: 2NASP; 70551; 70555; CCU; 36415; 74000; 74230; 81001; 81003; 82436; 87040; 87070; 87086; 93005; 93010; 93306; 96105-GN; 96374; 97001-GP; 97003-GO; 97110-GO; 97112-GO; 97116-GO; 97530-GO; G0479; J0131; J0690; J1650; J3490; J7042; J7060

== ENCOUNTER 2016-09-17 21:15 | Inpatient (IN) | payer OTHER ==
[~2016-09-17] VITALS: Ht 167.6 cm; Wt 54.4 kg
[~2016-09-17 21:15] MED LIST: ASPIRIN81 M4 PO; ATORVASTATIN CA80 M1 PO; BISAC-EVAC10 M1 PR; FAMOTIDINE20 M1 PO; FLUOXETINE HCL20 M2 PO; NYSTATIN100000 UNI PO; OLANZAPINE5 M2 PO; RESTASIS1 EACH OPH; SUBOXONE 8 MG-1 EACH SL; TYLENOL325 M1 PO; VITAMIN D2000 UNIT PO
--- NOTE | 2016-09-17 21:25 | NUR ---
PT TO [facility] WITH C/O "NOT FEELING GOOD" TODAY. HX OF CVA 05/2016 WITH R SIDED DEFICIT. PT DENIES ANY PAIN, CAN'T EXPLAIN WHAT IS NOT FEELING RIGHT. PT BROUGHT TO [facility] FOR EKG- ST 128. TEMP 103.3, O2SAT 93% ON RA.
--- NOTE | 2016-09-17 21:42 | ED GENERAL ADULT ---
History of Present Illness General Chief Complaint: General Adult Stated Complaint: PT NOT FEELING RIGHT Source: patient, family Exam Limitations: clinical condition, confusion Vital Signs & Intake/Output Vital Signs & Intake/Output Vital Signs Date Time Temp Pulse Resp B/P Pulse O2 O2 Flow FiO2 Ox Delivery Rate 09/18 0044 96.9 103 18 103/53 91 Room Air 09/17 2237 99.3 09/17 2238 99.3 09/17 2236 97 Room Air 09/175 103.3 128 20 133/76 93 Room Air ED Intake and Output 09/18 0000 09/17 1200 Intake Total Output Total Balance Patient 120 lb Weight Allergies Coded Allergies: azithromycin (TREMORS 06/20/16) erythromycin base (TREMORS 06/20/16) Reconcile Medications Aspirin (Aspirin*) 81 MG TAB.CHEW 1 TAB PO DAILY stroke Atorvastatin Calcium 80 MG TABLET 1 TAB PO 1700 stroke Buprenorphine HCl/Naloxone HCl (Suboxone 8 MG-2 MG Sl Film) 8 MG-2 MG FILM 1 STR SL BID MENTAL HEALTH (Reported) Cholecalciferol (Vitamin D3) (Vitamin D) 2,000 UNIT CAPSULE 1 CAP PO DAILY SUPPLEMENT (Reported) Cyclosporine (Restasis) 0.05 % DROPERETTE 1 GTT OPH BID BOTH EYES (Reported) Famotidine 20 MG TABLET 20 MG PO DAILY GERD Fluoxetine HCl 20 MG CAPSULE 1 CAP PO DAILY MENTAL HEALTH (Reported) Olanzapine 5 MG TABLET 1 TAB PO QPM MENTAL HEALTH (Reported) Triage Note: PT TO [facility] WITH C/O "NOT FEELING GOOD" TODAY. HX OF CVA 05/2016 WITH R SIDED DEFICIT. PT DENIES ANY PAIN, CAN'T EXPLAIN WHAT IS NOT FEELING RIGHT. PT BROUGHT TO [facility] FOR EKG- ST 128. TEMP 103.3, O2SAT 93% ON RA. Triage Nurses Notes Reviewed? yes HPI: Patient is a 56-year-old female brought in by her family for evaluation of fevers and confusion. Patient's daughter reports that earlier today she spoke with her mother and patient was answering and conversing appropriately. This evening patient was confused and not answering questions appropriately. Patient found to be febrile in the emergency department. Patient is not taking any medication for her symptoms at home prior to arrival. Pain is 0 out of 10. Mild intermittent cough at home. Patient denies recent trauma, chest pain, abdominal pain, vomiting. (CARMELO JUAREZ,TINO) Past History Travel History Traveled to [place] past 21 day No Medical History Any Pertinent Medical History? see below for history Neurological: CVA EENT: NONE Cardiovascular: NONE Respiratory: NONE Gastrointestinal: NONE Hepatic: NONE Renal: NONE Musculoskeletal: NONE Psychiatric: anxiety, bipolar disease, depression, opioid dependence Endocrine: NONE Blood Disorders: NONE Cancer(s): NONE MARKETING SERVICES COORDINATOR/Reproductive: NONE History of MRSA: No History of VRE: No History of CDIFF: No Surgical History Surgical History: appendectomy (lap- approx 2005) Psychosocial History Who do you live with Significant Other Services at Home None What is your primary language Occitan Tobacco Use: Quit >30 days ago Family History Family History, If Any: Relation not specified for: *No pertinent family history Hx Contributory? No (TINO FISHER) Review of Systems Review of Systems Constitutional: Reports: fever, malaise, weakness. EENTM: Reports: no symptoms. Respiratory: Reports: cough. Denies: short of breath, wheezing. Cardiovascular: Denies: chest pain. GI: Denies: abdominal pain, diarrhea, vomiting. Genitourinary: Reports: no symptoms. Musculoskeletal: Reports: no symptoms. Skin: Reports: no symptoms. Neurological/Psychological: Reports: confusion. Denies: headache. Hematologic/Endocrine: Denies: bruising, bleeding. Immunologic/Allergic: Denies: splenectomy. (TINO FISHER) Physical Exam Physical Exam General Appearance: alert, awake Head: atraumatic, FACIAL DROOP, PER FAMILY CHRONIC, UNCHANGED Eyes: Bilateral: normal appearance, PERRL, EOMI. Ears, Nose, Throat: normal pharynx, normal ENT inspection, hearing grossly normal Neck: normal inspection, supple, full range of motion Respiratory: normal breath sounds, chest non-tender, no respiratory distress, lungs clear Cardiovascular: tachycardia (REGULAR RHYTHM) Peripheral Pulses: 2+ dorsalis pedis (R), 2+ dorsalis pedis (L) Gastrointestinal: soft, non-tender Back: normal inspection, normal range of motion, no vertebral tenderness Extremities: RIGHT HEMIPLEGIA (CHRONIC). nO SIGNS OF TRAUMA Neurologic/Psych: awake, alert, disoriented to place, expressive dysphasia. Skin: intact, normal color, warm/dry Lymphatic: no anterior cervical elian Core Measures ACS in differential dx? No CVA/TIA Diagnosis: No Severe Sepsis Present: Yes BC x2: Yes Lactic Acid x2: Yes IV ABX Broad Spectrum: Yes NS/LR Started: Yes Septic Shock Present: No (CARMELO JUAREZ,TINO) Progress Differential Diagnoses I considered the following diagnoses in my evaluation of the patient: Pneumonia, influenza, sepsis, urinary tract infection Plan of Care: Orders Procedure Date/time Status Regular Diet 09/18 B Active LACTIC ACID 09/18 0050 Complete Patient Data 09/18 46 Active OXYGEN SETUP (GEN) 09/17 2317 Active Saline Lock 09/17 2317 Active Admit to inpatient 09/17 2317 Active Vital Signs 09/17 2317 Active Activity/Ambulation 09/17 2317 Active Code Status 09/17 2317 Active BLOOD CULTURE 09/17 2234 Active RAPID VIRAL INFLUENZA A 09/18 2219 Complete TROPONIN LEVEL 09/18 2219 Complete LACTIC ACID 09/18 2219 Complete COMPREHENSIVE METABOLIC PANEL 09/18 2219 Complete CBC WITHOUT DIFFERENTIAL 09/18 2219 Complete Add-on Test (ER Only) 09/17 2218 Active BLOOD CULTURE 09/17 2214 Active CULTURE,URINE 09/17 2156 Active URINALYSIS 09/17 2156 Complete Intake & Output 09/17 2142 Active EKG 09/17 2117 Active Current Medications Sig/Eduardo Start time Last Medication Dose Stop Time Status Admin Fluoxetine HCl 20 MG ONCE ONE 09/18 44 CAN (Prozac) 09/18 0046 Laboratory Tests 09/18/16 0044: Lactic Acid 2.3 H 09/17/16 2334: Urine Color YEL, Urine Clarity CLEAR, Urine pH 6.0, Ur Specific [place] 1.020, Urine Protein NEG, Urine Ketones NEG, Urine Nitrite NEG, Urine Bilirubin NEG, Urine Urobilinogen 4.0 H, Ur Leukocyte Esterase NEG, Ur Microscopic EXAM NOT REQUIRED, Urine Hemoglobin NEG, Urine Glucose 100 H 09/17/16 2220: Anion Gap 14, Estimated GFR > 60, BUN/Creatinine Ratio 23.3, Glucose 177 H, Lactic Acid 3.8 H, Calcium 8.7, Total Bilirubin 0.8, AST 46 H, ALT 50, Alkaline Phosphatase 66, Troponin I < 0.01, Total Protein 7.5, Albumin 3.7, Globulin 3.8, Albumin/Globulin Ratio 1.0 L, CBC w Diff NO MAN DIFF REQ, RBC 4.53, MCV 93.2, MCH 30.9, RDW 14.0, MPV 8.2, Gran % 87.6 H, Lymphocytes % 8.6 L, Monocytes % 3.8, Eosinophils % 0, Basophils % 0 L, Absolute Granulocytes 12.4 H, Absolute Lymphocytes 1.2, Absolute Monocytes 0.5, Absolute Eosinophils 0, Absolute Basophils 0, PUBS MCHC 33.1 09/17/160: Sodium Cancelled, Potassium Cancelled, Chloride Cancelled, Carbon Dioxide Cancelled, Anion Gap Cancelled, BUN Cancelled, Creatinine Cancelled, BUN/ Creatinine Ratio Cancelled, Glucose Cancelled, Lactic Acid Cancelled, Calcium Cancelled, Total Bilirubin Cancelled, AST Cancelled, ALT Cancelled, Alkaline Phosphatase Cancelled, Total Protein Cancelled, Albumin Cancelled, Globulin Cancelled, Albumin/Globulin Ratio Cancelled, CBC w Diff Cancelled, WBC Cancelled , RBC Cancelled, Hgb Cancelled, Hct Cancelled, MCV Cancelled, MCH Cancelled, RDW Cancelled, Plt Count Cancelled, MPV Cancelled, PUBS MCHC Cancelled Microbiology 09/17 2334 URINE ROUT: Urine Culture - RECD 09/17 2235 BLOOD: Blood Culture - RECD 09/17 222 NASOPHARYN: Influenza Virus A & B Rapid Smear - COMP 09/17 2214 BLOOD: Blood Culture - RECD 09/17 2149 BLOOD: Blood Culture - CAN Cancelled: DUPLICATE - SEE [id number] 09/17 2149 BLOOD: Blood Culture - CAN Cancelled: DUPLICATE - SEE [id number] 09/17 2146 NASOPHARYN: Influenza Virus A & B Rapid Smear - CAN Cancelled: DUPLICATE - SEE [id number] Ambrose. 09/17/2016 11:13:22 PM: Patient reports feeling improved, answering questions appropriately at this time. 09/17/2016 11:57:09 PM: Results of chest x-ray discussed with patient. Ceftriaxone and doxycycline ordered. 09/18/2016 12:47:55 AM: (TINO FISHER) Initial ED EKG: sinus tachycardia approximately 130 bpm poor baseline, mild ST depression possibly rate related. Prior EKG: changed (mild t wave depression) (TINO FISHER) Departure Departure Time of Disposition: 39 Disposition: STILL A PATIENT Condition: Stable Clinical Impression Primary Impression: Multifocal pneumonia Secondary Impressions: Elevated lactic acid level Referrals: PRECIOUS EVANGELISTA MD (PCP/Family) Departure Forms: Customer Survey General Discharge Information Admission Note Spoke With: YAN RICHEY MD Documentation of Exam: Documentation of any treatments & extenuating circumstances including Concerns Regarding Discharge (functional status, medication knowledge or non-compliance, living conditions, etc.) that warrant an admission rather than observation: IV antibiotics, IV fluids. Patient with multifocal pneumonia, was confused and presented with signs of encephalopathy secondary to her infection. At high risk if discharged. (TINO FISHER) PA/TERMINAL MAKEUP OPERATOR Co-Sign Statement Statement: ED Attending supervision documentation- x I saw and evaluated the patient. I have also reviewed all the pertinent lab results and diagnostic results. I agree with the findings and the plan of care as documented in the PA's/TERMINAL MAKEUP OPERATOR's documentation. [] I have reviewed the ED Record and agree with the PA's/TERMINAL MAKEUP OPERATOR's documentation. [] Additions or exceptions (if any) to the PAs/TERMINAL MAKEUP OPERATOR's note and plan are summarized below: [] (DIONE SUN,CANDI) Critical Care Note Critical Care Note Critical Care Time: 30-74 min (TINO FISHER)
--- NOTE | 2016-09-17 21:49 | NUR ---
PA STUDENT IN FOR EVAL
--- NOTE | 2016-09-17 22:12 | NUR ---
LARRY Richter IN FOR EVAL, THIS RN ESTABLISHED IV ACCESS LAC #20, LABS DRAWN ADN SENT BY THIS RN (SST, LAV, BLUE, LEDESMA, PINK), FLU SWAB SENT BY THIS RN. PT MEDICATED WITH NS BOLUS LITER #1 AND PT MEDICATED WITH IV TYLENOL PER EMAR.
[2016-09-17 22:32] LABS: ABSOLUTE BASOPHIL COUNT 0 /CUMM (0.0-0.2); ABSOLUTE EOSINOPHIL COUNT 0 /CUMM (0.0-0.7); ABSOLUTE GRANULOCYTE CT 12.4 /CUMM (1.4-6.5); ABSOLUTE LYMPH COUNT 1.2 /CUMM (1.2-3.4); ABSOLUTE MONOCYTE COUNT 0.5 /CUMM (0.10-0.60); BASOPHIL % 0 % (0.0-2.0); EOSINOPHIL % 0 % (0-5); GRANULOCYTE % 87.6 % (42.2-75.2); HEMATOCRIT 42.2 % (37-47); MEAN CORPUSCULAR HGB 30.9 PG (27.0-31.0); MEAN CORPUSCULAR HGB CONC 33.1 G/DL (33.0-37.0); MEAN CORPUSCULAR VOLUME 93.2 FL (81.0-99.0); MEAN PLATELET VOLUME 8.2 FL (7.4-10.4); PLATELET COUNT 215 /CUMM (130-400); RED BLOOD CELL CT 4.53 /CUMM (4.20-5.40); WHITE BLOOD CELL COUNT 14.1 /CUMM (4.8-10.8)
--- NOTE | 2016-09-17 22:37 | NUR ---
THIS RN ZEFERINO AND SENT SECOND SET OF BLOOD CULTURES
--- NOTE | 2016-09-17 22:38 | NUR ---
PTS TEMP DECREASED AFTER IV TYLENOL FROM 103.3 TO 99.3
--- NOTE | 2016-09-17 22:49 | NUR ---
PT TO XRAY VIA STRETCHER
--- NOTE | 2016-09-17 23:18 | NUR ---
CRITICAL TEST RESULTS [id number] JIMMIE SEGURA 56 F TESTS AND RESULTS: LACTIC 3.8 Results received and read back by: SURESH FORD Results received date and time: 09/17/16 2928 The following provider was notified of the results, and read the results back: LARRY Richter Notified date and time: 09/17/16 at 0922
--- NOTE | 2016-09-17 23:45 | NUR ---
URINE SAMPLE SENT TO LAB
--- NOTE | 2016-09-17 23:46 | RADIOLOGY REPORT ---
EXAMINATION: XR CHEST CLINICAL INFORMATION: Fever, change in mental status, cough. COMPARISON: Portable chest x-ray 07/01/2016. TECHNIQUE: PA and lateral views of the chest were obtained. FINDINGS: PA and lateral views of the chest demonstrate subtle patchy airspace opacities within the bilateral lung bases, left greater than right. These findings are nonspecific and may reflect atelectasis although developing infiltrates cannot be entirely excluded. On lateral view of the chest, soft tissue prominence surrounding the pulmonary vasculature may reflect adenopathy. No pleural effusions or pneumothoraces are identified. Cardiomediastinal contours are within normal limits. Soft tissues appear unremarkable. No acute osseous abnormality is identified. Incidental note is made of a focal defect along the superolateral aspect of the right humeral head. This could reflect a Hill-Sachs deformity. IMPRESSION: Subtle bibasilar patchy airspace opacities. These findings are nonspecific and could reflect atelectasis although developing infiltrates cannot be excluded in the appropriate clinical setting. Mild soft tissue prominence on lateral view of the chest, surrounding the pulmonary vasculature may reflect mildly prominent lymph nodes.
--- NOTE | 2016-09-18 00:45 | NUR ---
BLOOD DRAWN AND SENT TO LAB [facility]
--- NOTE | 2016-09-18 00:59 | NUR ---
HOUSE STAFF IN FOR EVAL
--- NOTE | 2016-09-18 01:10 | NUR ---
CRITICAL TEST RESULTS [id number] JIMMIE SEGURA 56 F TESTS AND RESULTS: LACTIC 2.3 Results received and read back by: SURESH FORD Results received date and time: 09/18/16 0110 The following provider was notified of the results, and read the results back: LARRY Richter AND HOUSE STAFF Notified date and time: 09/18/16 at 0110
--- NOTE | 2016-09-18 01:16 | NUR ---
REPORT GIVEN TO MEHRAN BALBUENA.
[2016-09-18 01:30] VITALS: BP 120/59
--- NOTE | 2016-09-18 01:40 | History & Physical ---
JASWINDER SUN,SHERLY 09/18/16 0140: General Information and HPI MD Statement: I have seen and personally examined JIMMIE SEGURA and documented this H&P. The patient is a 56 year old F who presented with a patient stated chief complaint of [altered speech and breathing fast]. 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 Daughter noted that patient was "breathing fast, "and slurring her speech worse than normal this evening so she brought her to the hospital for further evaluation. She also notes that her mother had been sleeping more since this past . Denies fever, cough, nausea, vomiting, shortness of breath, chest pain, abdominal pain, dizziness, hematochezia, hematuria, melena, constipation, or diarrhea. Patient endorses that symptoms started suddenly this evening and that she has no active complaints during the interview. Denies recent travel or sick contacts. Patient has significant smoking history but quit after CVA, denies alcohol, denies any current drug use. However, patient was using IV drugs up until 2 years ago. Previous imaging showed near occlusion of the left MCA with left ICA stenosis as well. Allergies/Medications Allergies: Coded Allergies: azithromycin (TREMORS 06/20/16) erythromycin base (TREMORS 06/20/16) Home Med list Aspirin (Aspirin*) 81 MG TAB.CHEW 1 TAB PO DAILY stroke Atorvastatin Calcium 80 MG TABLET 1 TAB PO 1700 stroke Buprenorphine HCl/Naloxone HCl (Suboxone 8 MG-2 MG Sl Film) 8 MG-2 MG FILM 1 STR SL BID MENTAL HEALTH (Reported) Cholecalciferol (Vitamin D3) (Vitamin D) 2,000 UNIT CAPSULE 1 CAP PO DAILY SUPPLEMENT (Reported) Cyclosporine (Restasis) 0.05 % DROPERETTE 1 GTT OPH BID BOTH EYES (Reported) Famotidine 20 MG TABLET 20 MG PO DAILY GERD Fluoxetine HCl 20 MG CAPSULE 1 CAP PO DAILY MENTAL HEALTH (Reported) Olanzapine 5 MG TABLET 1 TAB PO QPM MENTAL HEALTH (Reported) Compliance With Home Meds: UNKNOWN Past History Travel History Traveled to [place] past 21 day No Medical History Neurological: CVA EENT: NONE Cardiovascular: NONE Respiratory: COPD Gastrointestinal: NONE Hepatic: NONE Renal: NONE Musculoskeletal: NONE Psychiatric: anxiety, bipolar disease, depression, opioid dependence Endocrine: NONE Blood Disorders: NONE Cancer(s): NONE TE[employer]ER [employer]S/Reproductive: NONE History of MRSA: No History of VRE: No History of CDIFF: No Surgical History Surgical History: appendectomy (lap- approx 2005) Past Family/Social History Family History Relations & Conditions if any Relation not specified for: *No pertinent family history Psychosocial History Who Do You Live With? self Services at Home: None Primary Language: Guamanian Smoking Status: Former Smoker ETOH Use: denies use Illicit Drug Use: denies illicit drug use Living Will? unknown Power of Employment Advisor/HCP? unknown Functional Ability ADLs Independent: dressing, eating, toileting, bathing. 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 Review of Systems Review of Systems Constitutional: Reports: malaise. Denies: no symptoms, chills, diaphoresis, fever, weakness. EENTM: Reports: no symptoms. Cardiovascular: Denies: chest pain, palpitations. Respiratory: Denies: cough, short of breath, sputum production, wheezing. GI: Denies: abdominal pain, nausea, vomiting. Genitourinary: Reports: no symptoms. Musculoskeletal: Reports: no symptoms. Skin: Reports: no symptoms. Neurological/Psychological: Reports: no symptoms. Exam & Diagnostic Data Last 24 Hrs of Vital Signs/I&O Vital Signs Date Time Temp Pulse Resp B/P Pulse O2 O2 Flow FiO2 Ox Delivery Rate 09/18 0250 Room Air 09/18 0130 98.2 102 20 120/59 93 Room Air 09/18 0044 96.9 103 18 103/53 91 Room Air 09/17 2237 99.3 09/17 2237 99.3 09/18 2235 97 Room Air 09/17 2124 103.3 128 20 133/76 93 Room Air Intake & Output 09/18 0800 09/18 0000 09/17 1600 Intake Total Output Total Balance Patient 54.431 kg 54.431 kg Weight Physical Exam General Appearance Alert, Oriented X3, Cooperative, No Acute Distress Skin No Rashes, No Significant Lesion HEENT Atraumatic, PERRLA, EOMI Neck Supple Cardiovascular Regular Rate, Normal S1, Normal S2, No Murmurs Lungs patient has some diminished breath sounds and crackles bilaterally. No wheezes or rhonchi appreciated. Abdomen Soft, PEG tube scar 2 inches above umbilicus. Not erythematous, healed well Neurological patient has difficulty articulating, has significant dysarthria. Extremities No Clubbing, No Cyanosis, No Edema Last 24 Hrs of Labs/Edgar: Laboratory Tests 09/18/16 0044: Lactic Acid 2.3 H 09/17/16 2334: Urine Opiates Screen 320.00, Methadone Screen < 40, Barbiturate Screen < 60, Ur Phencyclidine Scrn < 6.00, Amphetamines Screen > 1450 H, U Benzodiazepines Scrn < 85, Urine Cocaine Screen < 50, Urine Cannabis Screen < 5.00, Urine Color YEL, Urine Clarity CLEAR, Urine pH 6.0, Ur Specific [place] 1.020, Urine Protein NEG, Urine Ketones NEG, Urine Nitrite NEG, Urine Bilirubin NEG, Urine Urobilinogen 4.0 H, Ur Leukocyte Esterase NEG, Ur Microscopic EXAM NOT REQUIRED, Urine Hemoglobin NEG, Urine Glucose 100 H 09/17/16 2220: Anion Gap 14, Estimated GFR > 60, BUN/Creatinine Ratio 23.3, Glucose 177 H, Lactic Acid 3.8 H, Calcium 8.7, Total Bilirubin 0.8, AST 46 H, ALT 50, Alkaline Phosphatase 66, Troponin I < 0.01, Total Protein 7.5, Albumin 3.7, Globulin 3.8, Albumin/Globulin Ratio 1.0 L, CBC w Diff NO MAN DIFF REQ, RBC 4.53, MCV 93.2, MCH 30.9, RDW 14.0, MPV 8.2, Gran % 87.6 H, Lymphocytes % 8.6 L, Monocytes % 3.8, Eosinophils % 0, Basophils % 0 L, Absolute Granulocytes 12.4 H, Absolute Lymphocytes 1.2, Absolute Monocytes 0.5, Absolute Eosinophils 0, Absolute Basophils 0, PUBS MCHC 33.1 09/17/16 2150: Sodium Cancelled, Potassium Cancelled, Chloride Cancelled, Carbon Dioxide Cancelled, Anion Gap Cancelled, BUN Cancelled, Creatinine Cancelled, BUN/ Creatinine Ratio Cancelled, Glucose Cancelled, Lactic Acid Cancelled, Calcium Cancelled, Total Bilirubin Cancelled, AST Cancelled, ALT Cancelled, Alkaline Phosphatase Cancelled, Total Protein Cancelled, Albumin Cancelled, Globulin Cancelled, Albumin/Globulin Ratio Cancelled, CBC w Diff Cancelled, WBC Cancelled , RBC Cancelled, Hgb Cancelled, Hct Cancelled, MCV Cancelled, MCH Cancelled, RDW Cancelled, Plt Count Cancelled, MPV Cancelled, PUBS MCHC Cancelled Microbiology 09/17 2333 URINE ROUT: Legionella Antigen - COMP 09/17 2333 URINE ROUT: Streptococcus pneumoniae Antigen (M - COMP STREP PNEUMO BACTERIAL AG 09/17 2333 URINE ROUT: Urine Culture - RECD 09/17 2234 BLOOD: Blood Culture - RECD 09/18 2219 NASOPHARYN: Influenza Virus A & B Rapid Smear - COMP 09/17 2214 BLOOD: Blood Culture - RECD 09/17 2149 BLOOD: Blood Culture - CAN Cancelled: DUPLICATE - SEE [id number] 09/17 2149 BLOOD: Blood Culture - CAN Cancelled: DUPLICATE - SEE [id number] 09/17 2146 NASOPHARYN: Influenza Virus A & B Rapid Smear - CAN Cancelled: DUPLICATE - SEE [id number] Assessment/Plan Assessment: This is a 56 yo female with PMH of CVA and hx of aspiration pna, anxiety, bipolar, depression, opioid abuse,COPD who comes in with CC of malaise. Labs pertinent for fever 103.3, tachycardia and BP 133/76, with 97% O2. WBC 68181, lactic acid 3.8--> 2.8, slight transamanitis, troponin x1 negative, EKG with sinus tachycardia, - influenza. CXR: bibasilar patchy airspace opacities with could represent inflitrates. PLAN 1. Sepsis 2/2 PNA: Pt is febrile with reported hx of AMS and dysarthria at home. She has hx of aspiration PNA since CVA. Per pt, she "graduated" to regular diet. Denies any choking or difficulty with food or drink currently. However given that she has decreased breath sounds, with crackles, lactic acid, tachycardia we are treating her for aspiration vs atypical vs multilobar PNA. PE lower on the differential. There was concern for repeat CVA but pt's dysarthria has returned to baseline, but fever persists. Consider repeat CT for eval of TIA/stroke. * Ceftraixone * Doxy ("allergy to azithro") * strep pneumo * legionella * utox * Nebs Prn * maint fluids * swallow eval * Keep NPO 2. CAD/HTN: chronic and stable. * Con't home reg 3. Hx opioid abuse: Chronic and stable * Con't suboxone As Ranked By This Provider Problem List: 1. CVA (cerebral vascular accident) 2. Aspiration pneumonia 3. Multifocal pneumonia 4. Elevated lactic acid level Core Measures/Miscellaneous Acute Coronary Syndrome ACS Diagnosis: No Cerebrovascular Accident CVA/TIA Diagnosis: No Congestive Heart Failure CHF Diagnosis: No Venous Thromboembolism VTE Risk Factors: Age > 40 No [facility] VTE prophylaxis d/t: No contraindications No VTE Pharm Prophylaxis d/t: No contraindications VTE Diagnosis: No VTE Type: NONE VTE Confirmed by (Test): NONE Severe Sepsis Severe Sepsis Present: Yes BC x2: Yes Lactic Acid x2: Yes IV ABX Broad Spectrum: Yes NS/LR Started: Yes Septic Shock Septic Shock Present: No Miscellaneous Documentation Attending Case Discussed With: YAN RICHEY MD Primary Care Physician: PRECIOUS EVANGELISTA MD Patient sees these Specialists unknown Level of Patient Care: General Medicine JORGE SUN,[facility] 09/18/16 0212: Resident Review Statement Resident Statement: examined this patient, discussed with analysis internship, agreed with analysis internship, discussed with family, reviewed EMR data (avail), discussed with nursing , discussed with case mgmt, reviewed images, amended to note Other Findings: Jimmie is a 56-year-old woman with a history of left MCA territorial cerebral vascular accident with right-sided paralysis in May 2016, known coronary artery disease, COPD, aspiration pneumonia, IV drug abuse history, opiate abuse, dysphasia depression hypertension former smoker who presents with 3-4 days history of/lethargy or fatigue nonproductive cough subjective fevers. Appetite she is awake alert oriented. Fianc and daughter provide collateral history. Vital signs notable for high-grade fever 103.3F, sinus tachycardia, blood pressure is 133/76, 97% oxygen saturation on room air; heart sounds present, tachycardia noted. Bilateral airway entry noted with decreased breath sounds mid to lower basis with interspersed crackles. Right-sided neurologic deficits noted. Right arm in sling. Labs notable for leukocytosis of 14,000, lactic acid 3.8. Nonspecific transaminitis. Troponin negative 1. EKG demonstrates sinus tachycardia. Rapid influenza test a and B-. Chest x-ray demonstrates bibasilar patchy airspace opacities that could represent infiltrates. In the emergency department she received doxycycline and ceftriaxone as well as 2 L normal saline bolus. Lactic acid since going down trended to 2.8. We suspect this patient has multilobar community acquired pneumonia. No other infectious source identified at this time. DDx includes Pulmonary embolus however this seems to be unlikely b/c she doesnt have any chest pain/discomfort. - Problems - Multilobar PNA Hx Aspiration PNA CAD HTN - Problems - Ceftriaxone/Doxy Await Cx, urine ags legionella/s.pneumo TRC nebs prn Keep NPO Swallow evaluation Maintenance fluids Check Utox Cont suboxone DVT ppx lovenox FULL code KAIDEN SUN, [facility] 09/18/16 0558: Attending MD Review Statement Attending Statement Attending MD Statement: examined this patient, discuss w/resident/PA/BACON DE RINDER, agreed w/resident/PA/BACON DE RINDER, discussed with family Attending Assessment/Plan: 56 yo F with h/o IVDA on suboxone (clean for 2 yrs), anxiety, depression, BPD, recent left MCA stroke (May 2016) with residual right sided hemiplegia, facial droop and speech deficits (course c/b aspiration pneumonia, dysphagia requiring PEG tube that was removed 3 weeks ago), is here for evaluation of confusion as noted by patient's daughter. Patient reports nonproductive cough, lethargy, dyspnea and was noted to have a fever of 103 in the ER. No sick contacts. Tachycardic 110's, BP 120/59, sats 91-93% RA. Chest reduced air entry at bases with rhonchi (R>L). Labs: WBC 14.1, glucose 177, lactic acid 3.8 --> 2.3, AST 46 , trop neg. UA neg. EKG: Sinus tachycardia. Flu swab neg. Utox positive for amphetamines. CXR: bibasilar patchy airspace opacities. 1. Sepsis secondary to community acquired pneumonia. GM admit, TRC nebs, panculture, urine legionella and strep Ag, patient received IV ceftriaxone and doxycycline (allergic to azithromycin) in the ER, continue with the same. IV fluids, check swallow eval to rule out aspiration. PT/OT/ speech therapy. Trend lactic acid. 2. Utox positive for amphetamines, patient denies use of any drugs. Unclear where this is coming from. 3. Continue home meds aspirin, statin. DVT ppx Lovenox. Full code.
--- NOTE | 2016-09-18 02:32 | Admission Certification ---
Admission Certification Certification Statement - As attending physician, I certify that at the time of - admission, based on clinical presentation, severity of - symptoms, need for further diagnostic testing and - therapeutic interventions, and risk of adverse outcomes - without in-hospital treatment, in my clinical assessment, - this patient requires an acute hospital stay for a minimum - of two nights or longer. I have also considered psychsocial - factors such as support system, advanced age, financial - issues, cognitive issues, and failed out-patient treatments, - past re-admission history, safety of patient, and lack of - compliance as applicable. Specific rationale supporting this admission is: Sepsis secondary to community acquired pneumonia. Aspiration cannot be ruled out.
[2016-09-18 04:17] LABS: ABSOLUTE BASOPHIL COUNT 0 /CUMM (0.0-0.2); ABSOLUTE EOSINOPHIL COUNT 0 /CUMM (0.0-0.7); ABSOLUTE GRANULOCYTE CT 11.5 /CUMM (1.4-6.5); ABSOLUTE LYMPH COUNT 3.2 /CUMM (1.2-3.4); ABSOLUTE MONOCYTE COUNT 0.9 /CUMM (0.10-0.60); BASOPHIL % 0.2 % (0.0-2.0); EOSINOPHIL % 0.1 % (0-5); GRANULOCYTE % 73.4 % (42.2-75.2); MEAN CORPUSCULAR HGB 31.2 PG (27.0-31.0); MEAN CORPUSCULAR HGB CONC 33.3 G/DL (33.0-37.0); MEAN CORPUSCULAR VOLUME 93.6 FL (81.0-99.0); MEAN PLATELET VOLUME 8.3 FL (7.4-10.4); PLATELET COUNT 176 /CUMM (130-400); RBC DISTRIBUTION WIDTH 13.8 % (11.5-14.5); RED BLOOD CELL CT 3.76 /CUMM (4.20-5.40); WHITE BLOOD CELL COUNT 15.7 /CUMM (4.8-10.8)
[2016-09-18 04:38] LABS: HEMATOCRIT 35.2 % (37-47)
--- NOTE | 2016-09-18 04:50 | NUR ---
NSG NOTE: LATE ENTRY; PT ARRIVED TO FLOOR FROM ER. PT AWAKE, A/OX2, ON ROOM AIR, IV SITE INTACT, HX OF CVA WITH RIGHT SIDED WEAKNESS, SPEECH IS GARBLED, RIGHT FOOT DROP NOTED, LUNGS CLEAR, PT DENIES PAIN, IVF INFUSING PER ORDER, FAMILY AT BEDSIDE, PT ORIENTED TO ROOM AND CALL COBB WITHIN REACH. WILL MONITOR.
[2016-09-18 07:31] VITALS: BP 148/85
--- NOTE | 2016-09-18 10:22 | PN- Att Addend ---
Attending Addendum Attending Brief Note Patient seen and examined. This is a 56-year-old fairly complex female with chronic opiate dependence on Suboxone with recently here from May she was treated for an MCA infarction with carotid near occlusion/ thrombus with dysphagia with resultant PEG placement and ultimate AMA because the STR facility was too far away. She is now admitted with pneumococcal pneumonia. She is febrile to 103, white count with a differential of granulocytes, opacities on chest x-ray and a pneumococcal antigen was positive. We have an IV ceftriaxone and treating her for sepsis syndrome with fluids and following her labs and lactate. Replete her hypokalemia orally, once she is taking adequate by mouth can titrate off the fluids. Because the team was worried about aspiration we have a swallow eval pending. Her PEG tube was taken out once she was able to take adequate by mouth without aspiration per the patient. Clarify the psych meds and restart them. Restart her antiplatelets and anticholesterol agents when she passes a swallow eval. She is on DVT prophylaxis and will get a PT eval she has some unsteadiness and right foot drop from her stroke. The amphetamines in the U tox are unexplained at this point as patient adamantly denies using anything besides what prescribed.
[2016-09-18 14:31] VITALS: BP 104/58
[2016-09-18 22:47] VITALS: BP 128/70
[2016-09-19 06:30] VITALS: BP 140/84
--- NOTE | 2016-09-19 08:21 | PN- Housestaff ---
See Addendum Subjective Follow-up For: Drug dependency Streptococcal positive Pneumococcal pneumonia Subjective: Afebrile since yesterday morning, saturating well on room air, mildly tachycardic this morning. Patient looks relaxed and comfortable, no acute overnight events reported, she reported significant improvement in her symptoms. Review of Systems Constitutional: Reports: no symptoms. Denies: chills, fever. Objective Last 24 Hrs of Vital Signs/I&O Vital Signs Date Time Temp Pulse Resp B/P Pulse O2 O2 Flow FiO2 Ox Delivery Rate 09/19 0800 Room Air 09/19 0630 98.0 96 20 140/84 96 Room Air 09/18 2247 97.7 84 20 128/70 91 Room Air 09/18 1431 97.7 76 18 104/58 94 Room Air Room Air Intake & Output 09/19 1600 09/19 0800 09/19 0000 Intake Total 800 520 Output Total 300 500 Balance 500 20 Intake, IV 800 400 Intake, Oral 120 Output, Urine 300 500 Physical Exam General Appearance: Alert, Oriented X3, Cooperative, No Acute Distress Skin: No Rashes HEENT: Atraumatic, PERRLA, EOMI, Mucous Membr. moist/pink Cardiovascular: Regular Rate, Normal S1, Normal S2, No Murmurs Lungs: Clear to Auscultation Abdomen: Soft, No Tenderness Neurological: residual right sided weakness with dysarthria Extremities: No Clubbing, No Cyanosis, No Edema, right arm is placed on splinter Current Medications: Current Medications Sig/Eduardo Start time Last Medication Dose Route Stop Time Status Admin Acetaminophen 1,000 MG Q6P PRN 09/18 0145 AC 09/19 IV 1112 Aspirin 81 MG DAILY 09/19 1000 AC 09/19 PO 0938 Atorvastatin Calcium 80 MG 1700 09/19 1700 AC PO Buprenorphine/ 1 TAB BID 09/18 1000 AC 09/19 Naloxone SL 0856 Ceftriaxone Sodium 1,000 MG 09/18 2200 DC 09/18 IV 2224 Cefuroxime Sodium 500 MG BID 09/190 AC PO Cyclosporine 1 GTT BID 09/18 1000 AC 09/19 OPH 0856 Enoxaparin Sodium 40 MG DAILY 09/18 1000 AC 09/19 SC 0856 Potassium Chloride 20 MEQ ONCE ONE 09/19 0900 DC 09/19 PO 09/19 0901 0938 Sodium Chloride 1,000 ML Q10H 09/18 0200 AC 09/19 IV 0856 Last 24 Hrs of Lab/Edgar Results Last 24 Hrs of Labs/Mics: Laboratory Tests 09/19/16 0630: Anion Gap 5, Estimated GFR > 60, BUN/Creatinine Ratio 15.0, CBC w Diff NO MAN DIFF REQ, RBC 3.74 L, MCV 94.1, MCH 31.2 H, RDW 14.2, MPV 8.7, Gran % 63.0, Lymphocytes % 29.8, Monocytes % 5.5, Eosinophils % 1.5, Basophils % 0.2, Absolute Granulocytes 5.6, Absolute Lymphocytes 2.6, Absolute Monocytes 0.5, Absolute Eosinophils 0.1, Absolute Basophils 0, PUBS MCHC 33.2 Assessment/Plan Assessment: 56/ F with PMH of 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 On admission she had fever of 103, sinus tachycardia leukocytosis of 14,000, lactic acid 3.8. Nonspecific transaminitis, Chest x-ray demonstrates bibasilar patchy airspace opacities that could represent infiltrates. She has strep antigen positive and now on IV ceftrixone. She is saturating well on room air since admission. Post swallow evaluation it was recommended to start chopped and thin fluid. 1.Pneumococcal pneumonia * We will switch ceftriaxone to oral Ceftin 500 mg twice a day to finish a course of total 7 days. * We will continue recommended diet(chopped on thin fluids) * Patient is stable and most likely will be discharged today 2. CAD/HTN: chronic and stable. * Con't home reg 3. Hx opioid abuse: Chronic and stable * Con't suboxone 4. History of stroke 3 months ago * We will continue recommended diet * We'll continue aspirin * We will call primary care doctor to confirm clopidogrel. Special diet order DVT prophylaxis Lovenox FULL code Problem List: 1. CVA (cerebral vascular accident) Pain Ratin Pain Location: na Pain Goal: Remain pain free Pain Plan: see A&P Tomorrow's Labs & Rationales: none becuase she she'll be discharged today
[2016-09-19 08:44] LABS: ABSOLUTE BASOPHIL COUNT 0 /CUMM (0.0-0.2); ABSOLUTE EOSINOPHIL COUNT 0.1 /CUMM (0.0-0.7); ABSOLUTE GRANULOCYTE CT 5.6 /CUMM (1.4-6.5); ABSOLUTE LYMPH COUNT 2.6 /CUMM (1.2-3.4); ABSOLUTE MONOCYTE COUNT 0.5 /CUMM (0.10-0.60); BASOPHIL % 0.2 % (0.0-2.0); EOSINOPHIL % 1.5 % (0-5); HEMATOCRIT 35.2 % (37-47); MEAN CORPUSCULAR HGB 31.2 PG (27.0-31.0); MEAN CORPUSCULAR HGB CONC 33.2 G/DL (33.0-37.0); MEAN CORPUSCULAR VOLUME 94.1 FL (81.0-99.0); MEAN PLATELET VOLUME 8.7 FL (7.4-10.4); PLATELET COUNT 171 /CUMM (130-400); RBC DISTRIBUTION WIDTH 14.2 % (11.5-14.5); RED BLOOD CELL CT 3.74 /CUMM (4.20-5.40); WHITE BLOOD CELL COUNT 8.9 /CUMM (4.8-10.8)
--- NOTE | 2016-09-19 09:03 | NUR ---
PHYSICAL THERAPY- CONSULT RECEIVED, CHART REVIEWED. PT WELL KNOWN TO THIS DEPARTMENT, CURRENTLY BEING SEEN IN OUTPATIENT TX FOR SEQUELAE OF CVA. AMBULATNG 10-15' W/ ELADIO. PT CURRENTLY AT BASELINE AND DOES NOT REQUIRE SKILLED ACUTE LEVEL P.T. AT THIS TIME. RECOMMEND OOBTC W/ NSG STAFF THROUGHOUT DAY AND RESUME OUTPATIENT P.T. FOLLOWING D/C
[2016-09-19] MEDS ORDERED: CEFUROXIME250 M1 PO (11:34)
--- NOTE | 2016-09-19 11:36 | Patient Discharge Instructions ---
Psych Discharge Inst General Discharge Information You were seen/treated for: Lung infection(strep and pneumonia) Special Instructions: Please follow-up with your primary care doctor within 1 week These come back if symptom worsen or did not improve Diet Continue normal diet: Yes Recommended Diet: chopped with thin liquids Activity Full Activity/No Limits: Yes Activity Self Limited: Yes Nursing Information Vital Signs and Vaccine Data Vital Signs Result Date Time O2 Delivery Room Air 09/19 0800 Pulse Ox 96 09/19 0630 B/P 140/84 09/19 0630 Temp 98.0 09/19 0630 Pulse 96 09/19 0630 Resp 20 09/19 0630 O2 Flow Rate Room Air 09/18 1431 Last BM: 09/18/16 Date of last Pneumonia Vaccine (if documented): Date of last Influenza Vaccine (if documented):
--- NOTE | 2016-09-19 11:37 | Patient Discharge Instructions ---
Discharge Instructions General Discharge Information You were seen/treated for: Lung infection(strep and pneumonia) Special Instructions: Please follow-up with your primary care doctor within 1 week Please take medications exactly as prescribed These come back if symptom worsen or did not improve Diet Continue normal diet: Yes Recommended Diet: chopped with thin liquids Activity Full Activity/No Limits: Yes Activity Self Limited: Yes Acute Coronary Syndrome Inclusion Criteria At DC or during hospital stay patient has or had the following: ACS DIAGNOSIS No Discharge Core Measures Meds if any: Prescribed or Continued at Discharge Meds if any: NOT Prescribed or Continued at Discharge Congestive Heart Failure Inclusion Criteria At DC or during hospital stay patient has or had the following: CHF DIAGNOSIS No Discharge Core Measures Meds if any: Prescribed or Continued at Discharge Meds if any: NOT Prescribed or Continued at Discharge Cerebrovascular accident Inclusion Criteria At DC or during hospital stay patient has or had the following: CVA/TIA Diagnosis No Discharge Core Measures Meds if any: Prescribed or Continued at Discharge Meds if any: NOT Prescribed or Continued at Discharge Venous thromboembolism Inclusion Criteria VTE Diagnosis No VTE Type NONE VTE Confirmed by (Test) NONE Discharge Core Measures - Per Current guidelines, there needs to be overlap - treatment for the first 5 days of Warfarin therapy. - If discharged on Warfarin prior to 5 days of - overlap therapy, the patient will need to be - assessed for post discharge needs including - *Post discharge parental anticoagulation - *Warfarin and/or parental anticoagulation education - *Follow up date to check INR post discharge At least 5 days overlap therapy as Inpatient No Meds if any: Prescribed or Continued at Discharge Note: Overlap Therapy is Warfarin and Anticoagulant Meds if any: NOT Prescribed or Continued at Discharge
[2016-09-19] MEDS ORDERED: CLOPIDOGREL75 M1 PO (13:17)
--- NOTE | 2016-09-19 13:45 | NUR ---
NURSING NOTE: PATIENT LEFT FLOOR VIA WHEELCHAIR WITH [employer] AND DAUGHTER FOR DISCHARGE. PATIENT A/OX3, DENIES PAIN AT THIS TIME. ALL DISCHARGE INFORMATION AND PRESCRIPTIONS GIVEN TO PATIENT AND DAUGHTER. INSTRUCTED TO FOLLOW UP WITH PRIMARY CARE DOCTOR SOON POSSIBLE.
--- NOTE | 2016-09-19 13:54 | Discharge Summary ---
Visit Information Visit Dates Admission Date: 09/17/16 Discharge Date: 09/19/16 Hospital Course Course Attending Physician: LÁZARO GUTIERREZ MD Primary Care Physician: 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 On admission she had fever of 103, sinus tachycardia leukocytosis of 14,000, lactic acid 3.8. Nonspecific transaminitis, Chest x-ray demonstrates bibasilar patchy airspace opacities that could represent infiltrates. She has strep antigen positive. She was saturating well on room air since admission 1.Pneumococcal pneumonia Patient was initially treated on IV ceftriaxone which was then switch Cefuroxime 500 mg twice a day after she was afebrile, and stable. Patient was discharged and was instructed to take the antibiotic exactly as prescribed to finish a course of total 7 days. Swollen evaluation was done during admission, they recommended chopped diet with thin fluids. 2. CAD/HTN: chronic and stable. We continue home regimen, all medication can be found on the discharge medication list. 3. Hx opioid abuse: Chronic and stable We continue suboxone, on discharge she was recommended to follow up with her PCP within one-week. 4. History of stroke 3 months ago Patient was placed on the recommended diet we continued aspirin and clopidogrel. On discharge patient was instructed to follow up with her primary care doctor within 1 week. Allergies: Coded Allergies: azithromycin (TREMORS 06/20/16) erythromycin base (TREMORS 06/20/16) Pertinent Lab Results: SERVICE DATE: 09/[id number] TYPE: RAD - XRY-CHEST XRAY, PA AND LATERAL EXAMINATION: XR CHEST CLINICAL INFORMATION: Fever, change in mental status, cough. COMPARISON: Portable chest x-ray 07/01/2016. TECHNIQUE: PA and lateral views of the chest were obtained. FINDINGS: PA and lateral views of the chest demonstrate subtle patchy airspace opacities within the bilateral lung bases, left greater than right. These findings are nonspecific and may reflect atelectasis although developing infiltrates cannot be entirely excluded. On lateral view of the chest, soft tissue prominence surrounding the pulmonary vasculature may reflect adenopathy. No pleural effusions or pneumothoraces are identified. Cardiomediastinal contours are within normal limits. Soft tissues appear unremarkable. No acute osseous abnormality is identified. Incidental note is made of a focal defect along the superolateral aspect of the right humeral head. This could reflect a Hill-Sachs deformity. IMPRESSION: Subtle bibasilar patchy airspace opacities. These findings are nonspecific and could reflect atelectasis although developing infiltrates cannot be excluded in the appropriate clinical setting. Mild soft tissue prominence on lateral view of the chest, surrounding the pulmonary vasculature may reflect mildly prominent lymph nodes. Disposition Summary Disposition Principal Diagnosis: Pneumococcal pneumonia Additional Diagnosis: CAP Discharge Disposition: home or self care Discharge Instructions General Discharge Information Code Status: Full Code Patient's Diet: chopped and thin fluids Patient's Activity: Patient can be active as tolerated Follow-Up Instructions/Appts: Please follow up with your primary care doctor within 1 week Medications at Discharge Discharge Medications: Continue taking these medications: Fluoxetine HCl (Fluoxetine HCl) 20 MG CAPSULE 1 Capsule ORAL DAILY Qty = 14 Comments: NOT GIVEN IN HOSPITAL Buprenorphine HCl/Naloxone HCl (Suboxone 8 MG-2 MG Sl Film) 8 MG-2 MG FILM 1 Strip SUBLINGUAL TWICE DAILY Qty = 28 Comments: Last Taken: 09/19/16 Time: 1000 Olanzapine (Olanzapine) 5 MG TABLET 1 Tablet ORAL Every night Qty = 14 Comments: NOT GIVEN IN HOSPITAL Cyclosporine (Restasis) 0.05 % DROPERETTE 1 Drop In the eye TWICE DAILY Qty = 180 Comments: Last Taken: 09/19/16 Time: 1000 AM Cholecalciferol (Vitamin D3) (Vitamin D) 2,000 UNIT CAPSULE 1 Capsule ORAL DAILY Qty = 30 Comments: DID NOT RECEIVE IN HOSPITAL Atorvastatin Calcium (Atorvastatin Calcium) 80 MG TABLET 1 Tablet ORAL 5 PM Days = 30 Comments: NOT GIVEN IN HOSPITAL Aspirin (Aspirin*) 81 MG TAB.CHEW 1 Tablet ORAL DAILY Days = 30 Comments: Last Taken: 09/19/16 Time: 11OO AM Famotidine (Famotidine) 20 MG TABLET 20 Milligram ORAL DAILY Days = 30 Comments: NOT GIVEN IN HOSPITAL Clopidogrel Bisulfate (Clopidogrel) 75 MG TABLET 1 Tablet ORAL DAILY Comments: NOT GIVEN IN HOSPITAL Start taking the following new medications: Cefuroxime Axetil (Cefuroxime) 250 MG TABLET 500 Milligram ORAL TWICE DAILY Qty = 11 No Refills Comments: NOT GIVEN IN HOSPITAL Copies To: JEAN CARLOS SUN,PRECIOUS
== END 2016-09-19 13:43 | disposition home health service (06) | DRG 720 ==
LOC: ENRESERVDT → ENRESERVTM → ERH 21:15 → 2NB 23:18 → ERHI 23:18 → ENPENDDIS 23:18 → 2NB 09-18 01:56
PROVIDERS: Internal Medicine Hematology & Oncology; Physician Assistant; Student in an Organized Health Care Education/Training Program; ADMIT Student in an Organized Health Care Education/Training Program
DX: A41.9 Sepsis, unspecified organism (principal); G93.40 Encephalopathy, unspecified; J13 Pneumonia due to Streptococcus pneumoniae; I69.359 Hemiplegia and hemiparesis following cerebral infarction affecting unspecified side; F11.20 Opioid dependence, uncomplicated; F31.9 Bipolar disorder, unspecified; R47.02 Dysphasia; F17.210 Nicotine dependence, cigarettes, uncomplicated; J44.9 Chronic obstructive pulmonary disease, unspecified; I25.10 Atherosclerotic heart disease of native coronary artery without angina pectoris; I10 Essential (primary) hypertension
CPT/HCPCS: 2NBP; ERO; 80307; 81003; 82436; 87040; 87086; 87449; 87450; 87804; 87804-59; 93005; 93010; 96361; 96365; 96374; 97110-GO; 97110-GP; 97112-GO; 97112-GP; 97116-GP; 97140-GO; 99291; J0131; J0696; J1650; J3490